=== PATIENT | male | born 1940 | race Caucasian/White ===

== ENCOUNTER 2016-11-03 18:51 | Emergency (ER) | payer MEDICARE, MEDICAID ==
[2016-11-03 20:18] VITALS: BP 145/65
--- NOTE | 2016-11-04 01:46 | ED ---
Skin Complaint - HPI Summary HPI Summary: Patient presents 2 days s/p cut onto toe of foot. He is a diabetic. Laceration is CDI and located at the plantar side of the base of the great left toe. 5/10 pain and worse with walking. .25cm depth. Denies aches, chills or sweats. Denies blood thinners. Denies neuropathy in the feet although he is diabetic. - History of Current Complaint Chief Complaint: EDExtremityLower Time Seen by Provider: 11/03/16 21:52 Stated Complaint: FOOT LAC-PT ON BLOOD THINNER Hx Obtained From: Patient Onset/Duration: Started Days Ago Skin Exposure Onset/Duration: Days Ago Timing: Constant Onset Severity: Moderate Current Severity: Moderate Pain Intensity: 2 Pain Scale Used: 0-10 Numeric Skin Location: Discrete, Foot Character: Pain Aggravating Symptom(s): Nothing Alleviating Symptom(s): Nothing Associated Signs & Symptoms: Negative Related History: Trauma - Allergy/Home Medications Allergies/Adverse Reactions: Allergies Allergy/AdvReac Type Severity Reaction Status Date / Time CI Pigment Blue 63 Allergy Mild Itching Verified 11/22/14 07:48 [From Simcor] Niacin [From Simcor] Allergy Mild Itching Verified 11/22/14 07:48 Simvastatin [From Simcor] Allergy Mild Itching Verified 11/22/14 07:48 PMH/Surg Hx/FS Hx/Imm Hx Previously Healthy: Yes Endocrine/Hematology History: Reports: Hx Diabetes Cardiovascular History: Reports: Hx Hypertension Denies: Hx Congestive Heart Failure Musculoskeletal History: Reports: Hx Arthritis Sensory History: Reports: Hx Cataracts, Hx Contacts or Glasses Denies: Hx Glaucoma, Hx Deafness, Hx Hearing Aid, Hx Hearing Problem Opthamlomology History: Reports: Hx Cataracts, Hx Contacts or Glasses Denies: Hx Glaucoma Neurological History: Denies: Hx Dementia, Hx Developmental Delay, Hx Headaches, Hx Migraine, Hx Nerve Disease, Hx Seizures, Hx Spinal Cord Injury - Surgical History Surgery Procedure, Year, and Place: 2003-Torn left knee meniscus repair Hx Anesthesia Reactions: No - Immunization History Hx Pertussis Vaccination: No Immunizations Up to Date: Unable to Obtain/Confirm Infectious Disease History: No Infectious Disease History: Denies: Traveled Outside the [place] in Last 30 Days - Social History Occupation: Unemployed Lives: With Family Alcohol Use: None Hx Substance Use: No Substance Use Type: Reports: None Hx Tobacco Use: Yes Smoking Status (MU): Light Every Day Tobacco Smoker Amount Used/How Often: 1/2 PPD X 60 YEARS Review of Systems Constitutional: Negative Eyes: Negative Cardiovascular: Negative Respiratory: Negative Positive: no symptoms reported, see HPI Musculoskeletal: Negative Positive: Other - 2cm laceration to the toe Neurological: Negative All Other Systems Reviewed And Are Negative: Yes Physical Exam Triage Information Reviewed: Yes Vital Signs On Initial Exam: Initial Vitals Temp Pulse Resp BP Pulse Ox 98.1 F 75 20 143/65 97 11/03/16 19:06 11/03/16 19:06 11/03/16 19:06 11/03/16 19:06 11/03/16 19:06 Vital Signs Reviewed: Yes Appearance: Positive: Well-Appearing, Well-Nourished Skin: Positive: Warm, Skin Color Reflects Adequate Perfusion, Other - 2cm laceration to the plantar surface at the base of the great toe Eyes: Positive: EOMI, ELLA Neck: Positive: Supple, No Lymphadenopathy Respiratory/Lung Sounds: Positive: Clear to Auscultation, Breath Sounds Present Cardiovascular: Positive: Normal, RRR, Pulses are Symmetrical in both Upper and Lower Extremities Musculoskeletal: Positive: Other - weakness at baseline Neurological: Positive: Normal, Sensory/Motor Intact Psychiatric: Positive: Normal AVPU Assessment: Alert Diagnostics - Vital Signs Vital Signs Temp Pulse Resp BP Pulse Ox 11/03/16 20:12 98.1 F 75 20 145/65 97 11/03/16 19:06 98.1 F 75 20 143/65 97 - Laboratory Lab Statement: Any lab studies that have been ordered have been reviewed, and results considered in the medical decision making process. Course/Dx - Course Course Of Treatment: 2cm laceration to the plantar surface at the base of the great toe x 2 days. Diabetic. Adhesive glue and steri strips applied. Gauze wrapped. Care instructions given and explained to daughter and patient. He agrees to follow up with PCP for wound check this week d/t diabetes. Explained treatment options to patient and unable to suture d/t length of time since laceration occurred. Tetanus UTD. - Differential Diagnoses - Skin Complaint Differential Diagnoses: Other - laceration, avulsion, puncture - Diagnoses Provider Diagnoses: Laceration of toe Discharge - Discharge Plan Condition: Stable Disposition: HOME Patient Education Materials: Steristrips (ED) Referrals: Angel Jiménez MD [Primary Care Provider] - Additional Instructions: Follow up with Dr. Jiménez by the end of the week or early next week for wound check. If you develop redness, streaks of red around the wound, swelling, abnormal drainage or you develop a fever - you need to come back to the ED right away.
== END 2016-11-03 22:14 | disposition home or self-care (01) ==
LOC: ED 18:51
DX: S91.119A Laceration without foreign body of unspecified toe without damage to nail, initial encounter (principal); W45.8XXA Other foreign body or object entering through skin, initial encounter; Y93.9 Activity, unspecified; Y92.9 Unspecified place or not applicable
CPT/HCPCS: 99281

== ENCOUNTER 2017-03-23 20:46 | Emergency (ER) | payer MEDICARE, MEDICAID ==
[2017-03-23] MEDS ORDERED: NS 0.9% 1000 ML* 1,000 ML IV ONE ×2 (21:24→22:54)
--- NOTE | 2017-03-23 21:56 | RAD ---
INDICATION: Dizziness COMPARISON: CT brain December 16, 2011 TECHNIQUE: Noncontrast axial source images were acquired from the skull base to the vertex. FINDINGS: Ventricles/sulci: The ventricles and cisterns appear unchanged with findings of mild ex vacuo hydrocephalus. There is a cavum septum pellucidum. Brain parenchyma: There is no acute focal parenchymal finding, evidence of intracranial mass, or intracranial mass effect. 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 There is chronic microvascular ischemic change in the periventricular and subcortical white matter. This appears mildly progressive. Intracranial hemorrhage:None. Extra-axial spaces: There are no abnormal extra axial fluid collections or evidence of extra-axial mass. Calvarium: There is no calvarial fracture or other calvarial abnormality. Scalp: There is no evidence of scalp or extracalvarial soft tissue abnormality. Paranasal sinuses/mastoid: The paranasal sinuses and mastoid air cells are clear. Other: None. IMPRESSION: OLD RIGHT FRONTAL INFARCT. CHRONIC MICROVASCULAR ISCHEMIC CHANGE. CORTICAL INVOLUTIONAL CHANGE. NO ACUTE FINDINGS.
--- NOTE | 2017-03-23 21:57 | RAD ---
INDICATION: Fall. Left hip pain COMPARISON: Chest x-ray March 05, 2015 TECHNIQUE: PA and lateral dual-energy views were obtained. FINDINGS: Bones/Soft Tissues: There are no acute bony findings. Cardiomediastinal: The cardiomediastinal silhouette is normal. Lungs: There are no infiltrates. Pleura: There are no pleural effusions. Other: None IMPRESSION: NO ACTIVE DISEASE.
--- NOTE | 2017-03-23 21:58 | RAD ---
INDICATION: Fell out bed and landed on left hip. Currently denies pain COMPARISON: None TECHNIQUE: A single AP view of the pelvis is submitted. FINDINGS: Osseous structures: There is no acute osseous change. There is degenerative change of the lower lumbar spine SI joints and symphysis: Intact Soft tissues: Negative Other: None IMPRESSION: NO ACUTE BONY FINDINGS.
[2017-03-23 22:27] LABS: Hematocrit 42 % (42-52); Hemoglobin 14.4 g/dl (14.0-18.0); Mean Corpuscular HGB Conc 34 g/dl (31-36); Mean Corpuscular Hemoglobin 32 pg (27-31); Mean Corpuscular Volume 94 fL (80-94); Mean Platelet Volume 8 um3 (7.4-10.4); Red Blood Count 4.49 10^6/ul (4.0-5.4); Red Cell Distribution Width 15 % (10.5-15); White Blood Count 13.1 10^3/ul (3.5-10.8)
[2017-03-23 22:44] LABS: Albumin 4.1 g/dL (3.2-5.2); BUN/Creatinine Ratio 19.3 (8-20); Calcium 9.7 mg/dL (8.6-10.3); EGFR African American 54.1 (>60); Globulin 2.8 g/dL (2-4); Magnesium 2.2 mg/dL (1.9-2.7); Potassium 4.3 mmol/L (3.5-5.0); Total Bilirubin 0.6 mg/dL (0.2-1.0); Total Protein 6.9 g/dL (6.4-8.9)
[2017-03-24 01:31] VITALS: BP 131/68
[2017-03-24 01:53] LABS: Urine Bacteria Absent (Absent); Urine Bilirubin Negative (Negative); Urine Glucose Negative (Negative); Urine Nitrite Negative (Negative)
--- NOTE | 2017-03-24 05:20 | ED ---
Kayley Delgado Gabriel, scribed for Toni Orozco on 03/23/17 at 2114 . Lower Extremity - HPI Summary HPI Summary: This patient is a 76 year old M BIBA to [facility] accompanied by son with a chief complaint of hip pain s/p fall since earlier today. Pt states he stood up and lost balance, falling and hitting his left hip. Patient reports weakness and diarrhea. Patient denies nausea, ABD pain, and LOC. - History of Current Complaint Chief Complaint: EDHipPelvisInjury Stated Complaint: GENERAL WEAKNESS Time Seen by Provider: 03/23/17 21:00 Hx Obtained From: Patient Mechanism Of Injury: Fall From A Standing Position Pain Intensity: 0 Pain Scale Used: 0-10 Numeric Timing: Constant - Allergies/Home Medications Allergies/Adverse Reactions: Allergies Allergy/AdvReac Type Severity Reaction Status Date / Time CI Pigment Blue 63 Allergy Mild Itching Verified 11/22/14 07:48 [From Simcor] Niacin [From Simcor] Allergy Mild Itching Verified 11/22/14 07:48 Simvastatin [From Simcor] Allergy Mild Itching Verified 11/22/14 07:48 PMH/Surg Hx/FS Hx/Imm Hx Previously Healthy: No Endocrine/Hematology History: Reports: Hx Diabetes Cardiovascular History: Reports: Hx Hypertension Denies: Hx Congestive Heart Failure Musculoskeletal History: Reports: Hx Arthritis Sensory History: Reports: Hx Cataracts, Hx Contacts or Glasses Denies: Hx Glaucoma, Hx Deafness, Hx Hearing Aid, Hx Hearing Problem Opthamlomology History: Reports: Hx Cataracts, Hx Contacts or Glasses Denies: Hx Glaucoma Neurological History: Denies: Hx Dementia, Hx Developmental Delay, Hx Headaches, Hx Migraine, Hx Nerve Disease, Hx Seizures, Hx Spinal Cord Injury - Surgical History Surgery Procedure, Year, and Place: 2003-Torn left knee meniscus repair Hx Anesthesia Reactions: No Infectious Disease History: No Infectious Disease History: Denies: Traveled Outside the [place] in Last 30 Days - Family History Known Family History: Negative: Cardiac Disease - Social History Lives: Alone Alcohol Use: None Hx Substance Use: No Substance Use Type: Reports: None Hx Tobacco Use: Yes Smoking Status (MU): Light Every Day Tobacco Smoker Amount Used/How Often: 1/2 PPD X 60 YEARS Review of Systems Positive: Diarrhea. Negative: Abdominal Pain, Nausea Neurological: Negative - LOC Positive: Weakness All Other Systems Reviewed And Are Negative: Yes Physical Exam - Summary Physical Exam Summary: Appearance: Well appearing, no pain distress Skin: warm, dry, reflects adequate perfusion abrasions on lateral aspect of knee Head/face: normal Eyes: EOMI, ELLA ENT: Dry mucous membrane Neck: supple, non-tender Respiratory: CTA, breath sounds present Cardiovascular: RRR, pulses symmetrical Abdomen: non-tender, soft Bowel: present Musculoskeletal: normal, strength/ROM intact Neuro: normal, sensory motor intact, A&Ox3 Triage Information Reviewed: Yes Vital Signs On Initial Exam: Initial Vitals Temp Pulse Resp BP Pulse Ox 99.6 F 96 18 137/63 98 03/23/17 21:04 03/23/17 21:04 03/23/17 21:04 03/23/17 21:04 03/23/17 21:04 Vital Signs Reviewed: Yes - Concepcion Coma Scale Coma Scale Total: 15 Diagnostics - Vital Signs Vital Signs Temp Pulse Resp BP Pulse Ox 03/23/17 21:04 99.6 F 96 18 137/63 98 - Laboratory Lab Results: Lab Results 03/23/17 03/23/17 03/23/17 Range/Units 22:15 22:15 22:15 WBC 13.1 H (3.5-10.8) 10^3/ul RBC 4.49 (4.0-5.4) 10^6/ul Hgb 14.4 (14.0-18.0) g/dl Hct 42 (42-52) % MCV 94 (80-94) fL MCH 32 H (27-31) pg MCHC 34 (31-36) g/dl RDW 15 (10.5-15) % Plt Count 217 (150-450) 10^3/ul MPV 8 (7.4-10.4) um3 Neut % (Auto) 90.8 H (38-83) % Lymph % (Auto) 5.2 L (25-47) % Bowman % (Auto) 3.5 (1-9) % Eos % (Auto) 0.4 (0-6) % Baso % (Auto) 0.1 (0-2) % Absolute Neuts (auto) 11.9 H (1.5-7.7) 10^3/ul Absolute Lymphs (auto) 0.7 L (1.0-4.8) 10^3/ul Absolute Monos (auto) 0.5 (0-0.8) 10^3/ul Absolute Eos (auto) 0.1 (0-0.6) 10^3/ul Absolute Basos (auto) 0 (0-0.2) 10^3/ul Absolute Nucleated RBC 0 10^3/ul Nucleated RBC % 0 INR (Anticoag Therapy) 1.10 (0.89-1.11) APTT 43.6 H (26.0-36.3) seconds Sodium 139 (133-145) mmol/L Potassium 4.3 (3.5-5.0) mmol/L Chloride 107 (101-111) mmol/L Carbon Dioxide 24 (22-32) mmol/L Anion Gap 8 (2-11) mmol/L BUN 31 H (6-24) mg/dL Creatinine 1.61 H (0.67-1.17) mg/dL Est GFR ( Amer) 54.1 (>60) Est GFR (Non-Af Amer) 42.0 (>60) BUN/Creatinine Ratio 19.3 (8-20) Glucose 144 H (70-100) mg/dL Calcium 9.7 (8.6-10.3) mg/dL Magnesium 2.2 (1.9-2.7) mg/dL Total Bilirubin 0.60 (0.2-1.0) mg/dL AST 30 (13-39) U/L ALT 20 (7-52) U/L Alkaline Phosphatase 30 L (34-104) U/L Total Creatine Kinase 48 (10-223) U/L Troponin I 0.00 (<0.04) ng/mL Total Protein 6.9 (6.4-8.9) g/dL Albumin 4.1 (3.2-5.2) g/dL Globulin 2.8 (2-4) g/dL Albumin/Globulin Ratio 1.5 (1-3) Urine Color Urine Appearance Urine pH (5-9) Ur Specific [place] (1.010-1.030) Urine Protein (Negative) Urine Ketones (Negative) Urine Blood (Negative) Urine Nitrate (Negative) Urine Bilirubin (Negative) Urine Urobilinogen (Negative) Ur Leukocyte Esterase (Negative) Urine WBC (Auto) (Absent) Urine RBC (Auto) (Absent) Ur Squamous Epith Cells (Absent) Urine Bacteria (Absent) Hyaline Casts (Absent) Urine Glucose (Negative) Influenza A (Rapid) (Negative) Influenza B (Rapid) (Negative) 03/24/17 03/24/17 Range/Units 01:00 01:27 WBC (3.5-10.8) 10^3/ul RBC (4.0-5.4) 10^6/ul Hgb (14.0-18.0) g/dl Hct (42-52) % MCV (80-94) fL MCH (27-31) pg MCHC (31-36) g/dl RDW (10.5-15) % Plt Count (150-450) 10^3/ul MPV (7.4-10.4) um3 Neut % (Auto) (38-83) % Lymph % (Auto) (25-47) % Bowman % (Auto) (1-9) % Eos % (Auto) (0-6) % Baso % (Auto) (0-2) % Absolute Neuts (auto) (1.5-7.7) 10^3/ul Absolute Lymphs (auto) (1.0-4.8) 10^3/ul Absolute Monos (auto) (0-0.8) 10^3/ul Absolute Eos (auto) (0-0.6) 10^3/ul Absolute Basos (auto) (0-0.2) 10^3/ul Absolute Nucleated RBC 10^3/ul Nucleated RBC % INR (Anticoag Therapy) (0.89-1.11) APTT (26.0-36.3) seconds Sodium (133-145) mmol/L Potassium (3.5-5.0) mmol/L Chloride (101-111) mmol/L Carbon Dioxide (22-32) mmol/L Anion Gap (2-11) mmol/L BUN (6-24) mg/dL Creatinine (0.67-1.17) mg/dL Est GFR ( Amer) (>60) Est GFR (Non-Af Amer) (>60) BUN/Creatinine Ratio (8-20) Glucose (70-100) mg/dL Calcium (8.6-10.3) mg/dL Magnesium (1.9-2.7) mg/dL Total Bilirubin (0.2-1.0) mg/dL AST (13-39) U/L ALT (7-52) U/L Alkaline Phosphatase (34-104) U/L Total Creatine Kinase (10-223) U/L Troponin I (<0.04) ng/mL Total Protein (6.4-8.9) g/dL Albumin (3.2-5.2) g/dL Globulin (2-4) g/dL Albumin/Globulin Ratio (1-3) Urine Color Yellow Urine Appearance Cloudy Urine pH 5.0 (5-9) Ur Specific [place] 1.026 (1.010-1.030) Urine Protein 1+(30 mg/dl) H (Negative) Urine Ketones Negative (Negative) Urine Blood Negative (Negative) Urine Nitrate Negative (Negative) Urine Bilirubin Negative (Negative) Urine Urobilinogen Negative (Negative) Ur Leukocyte Esterase Negative (Negative) Urine WBC (Auto) 2+(11-20/hpf) H (Absent) Urine RBC (Auto) 1+(3-5/hpf) H (Absent) Ur Squamous Epith Cells Present H (Absent) Urine Bacteria Absent (Absent) Hyaline Casts Present H (Absent) Urine Glucose Negative (Negative) Influenza A (Rapid) Negative (Negative) Influenza B (Rapid) Negative (Negative) Result Diagrams: 03/23/17 22:15 03/23/17 22:15 Lab Statement: Any lab studies that have been ordered have been reviewed, and results considered in the medical decision making process. - Radiology CXR Radiology Interpretation Completed By: Radiologist - NO ACTIVE DISEASE. ED physician has reviewed this radiology report and agrees. Pelvis Xray Radiology Interpretation Completed By: Radiologist - NO ACUTE BONY FINDINGS. ED physician has reviewed this radiology report and agrees. - CT Brain CT CT Interpretation Completed By: Radiologist - OLD RIGHT FRONTAL INFARCT. CHRONIC MICROVASCULAR ISCHEMIC CHANGE. CORTICAL INVOLUTIONAL CHANGE. NO ACUTE FINDINGS. ED physician has reviewed this radiology report and agrees. - EKG 21:33 Cardiac Rate: NL EKG Rhythm: Sinus Rhythm - 88 BPM EKG Interpretation: RBBB Lower Extremity Course/Dx - Course Assessment/Plan: This patient is a 76 year old M BIBA to [facility] accompanied by son with a chief complaint of hip pain s/p fall since earlier today. An EKG reveals NSR at 88 BPM with a RBBB. CXR reveals, per radiologist, NO ACTIVE DISEASE. Pelvis X-rayreveals, per radiologist, NO ACUTE BONY FINDINGS. Brain CT reveals, per radiologist, OLD RIGHT FRONTAL INFARCT. CHRONIC MICROVASCULAR ISCHEMIC CHANGE. CORTICAL. INVOLUTIONAL CHANGE. NO ACUTE FINDINGS. Blood and urine were drawn with no significant abnormalities. In the ED course the patient was given IV fluids. do not want to wait for results. Patient will be discharged with follow up from Dr. Jiménez (PCP). The patient is agreeable with this plan. - Diagnoses Differential Diagnosis/HQI/PQRI: Positive: Contusion, Fracture (Closed), Other - cva/dehydration/intracranial bleeding Provider Diagnoses: Dizziness, Weakness, Dehydration Discharge - Discharge Plan Condition: Stable Disposition: HOME Patient Education Materials: Dehydration (ED), Dizziness (ED) Referrals: Angel Jiménez MD [Primary Care Provider] - 3 Days Additional Instructions: RETURN TO THE EMERGENCY DEPARTMENT FOR CHANGING OR WORSENING SYMPTOMS. The documentation as recorded by the Kayley santos Gabriel accurately reflects the service I personally performed and the decisions made by , Toni Orozco.
== END 2017-03-24 01:30 | disposition home or self-care (01) ==
LOC: ED 20:46
DX: R42 Dizziness and giddiness (principal); R53.1 Weakness; E86.0 Dehydration; R19.7 Diarrhea, unspecified; F17.210 Nicotine dependence, cigarettes, uncomplicated
CPT/HCPCS: 36415; 70450; 71010; 72170; 80053; 81003; 81015; 82550; 83735; 84484; 85025; 85610; 85730; 87502; 93005; 99283

== ENCOUNTER 2017-12-07 17:04 | Observation (INO) | payer MEDICARE, MEDICAID ==
[2017-12-07] MEDS ORDERED: NS 0.9% 1000 ML*IV.FLUID IV ONE (17:18)
--- NOTE | 2017-12-07 17:23 | ED ---
Back Pain - HPI Summary HPI Summary: This is scribe Epifanio Wong documenting for attending Ene Hilario M.D. Patient is a 77 y/o M who presented first to Dr Stout's office today with c/o possible kidney infection, left flank pain and feeling weak onset five days ago. However, at Dr. Stout's office, it was noted that patient was in SVT, rate 130"s., BP 112/systolic. Pt was referred to the ED for further eval and RX. Vitals in room are pulse of 158, 98 o2 sat, BP of 85/55. , Feliz Ribeiro, was present. He denies chest pain, SOB, cough and fever. He states he is not on any antibiotics and has not been checked for a kidney infection previously. He denies dizziness. reports patient might be a little dehydrated. He states he has not eaten a lot today as he was not hungry. He reports no PSHx in the room. Patient takes Digoxin, 0.375 mg a day. He does not remember taking medication but notes he had an empty pill cup in bathroom and believes he took medication. At 1724, patient was hypotensive 71/53 P 166 and pt c/o feeling weak. SOB and chest pain are still denied by pt even when hypotensive. Reported home medications are as follows: Home Medications Digoxin TAB* [Lanoxin TAB*] 0.125 mg PO DAILY 12/07/17 [History Confirmed ] Fenofibrate(NF) [Tricor(NF)] 160 mg PO DAILY WITH MEAL 12/07/17 [History Confirmed 12/07/17] Losartan TAB* [Cozaar TAB*] 25 mg PO DAILY 12/07/17 [History Confirmed 12/07/17] Howard-3 Acid Ethyl Esters [Lovaza 1 gm] 2 cap PO BID 12/07/17 [History Confirmed 12/07/17] Reported allergies are as follows: Allergies Allergy/AdvReac Type Severity Reaction Status Date / Time blue dye Allergy Itching Verified 12/07/17 18:37 niacin Allergy Itching Verified 12/07/17 18:37 simvastatin Allergy Itching Verified 12/07/17 18:37 I, Dr. Hilario, personally performed the services described in this documentation as scribed in my presence and it is both accurate and complete. - History of Current Complaint Chief Complaint: EDDysrhythmPalp Stated Complaint: FAST HEART RATE Time Seen by Provider: 12/07/17 17:11 Hx Obtained From: Patient, Family/Representative Personal Service - , Other: - Dr. Stout Onset/Duration: Lasting Hours - SVT was first noted today during visit to Dr. Stout, Lasting Days - left flank pain and weakness onset 5 days ago, Still Present Onset/Duration: Started Hours Ago - SVT was first noticed, Started Days Ago - left flank pain, weakness Timing: Constant Back Pain Location: Is Discrete @ - left flank Severity Currently: None - on triage, 0/10 Pain Intensity: 0 Pain Scale Used: 0-10 Numeric - 0/10 on triage Character: Aching Aggravating Symptom(s): Nothing Alleviating Symptom(s): Nothing Associated Signs And Symptoms: Positive: Weakness, Flank Pain - left, Other - SVT - Allergies/Home Medications Allergies/Adverse Reactions: Allergies Allergy/AdvReac Type Severity Reaction Status Date / Time blue dye Allergy Itching Verified 12/07/17 18:37 niacin Allergy Itching Verified 12/07/17 18:37 simvastatin Allergy Itching Verified 12/07/17 18:37 Home Medications: Home Medications Digoxin TAB* [Lanoxin TAB*] 0.125 mg PO DAILY 12/07/17 [History Confirmed ] Fenofibrate(NF) [Tricor(NF)] 160 mg PO DAILY WITH MEAL 12/07/17 [History Confirmed 12/07/17] Losartan TAB* [Cozaar TAB*] 25 mg PO DAILY 12/07/17 [History Confirmed 12/07/17] Howard-3 Acid Ethyl Esters [Lovaza 1 gm] 2 cap PO BID 12/07/17 [History Confirmed 12/07/17] PMH/Surg Hx/FS Hx/Imm Hx Previously Healthy: No Endocrine/Hematology History: Reports: Hx Diabetes Cardiovascular History: Reports: Hx Hypertension Denies: Hx Congestive Heart Failure Musculoskeletal History: Reports: Hx Arthritis Sensory History: Reports: Hx Cataracts, Hx Contacts or Glasses Denies: Hx Glaucoma, Hx Deafness, Hx Hearing Aid, Hx Hearing Problem Opthamlomology History: Reports: Hx Cataracts, Hx Contacts or Glasses Denies: Hx Glaucoma Neurological History: Denies: Hx Dementia, Hx Developmental Delay, Hx Headaches, Hx Migraine, Hx Nerve Disease, Hx Seizures, Hx Spinal Cord Injury - Surgical History Surgery Procedure, Year, and Place: 2003-Torn left knee meniscus repair Hx Anesthesia Reactions: No Infectious Disease History: No Infectious Disease History: Denies: Traveled Outside the [place] in Last 30 Days - Family History Known Family History: Negative: Cardiac Disease - Social History Lives: With Family Alcohol Use: None Hx Substance Use: No Substance Use Type: Reports: None Hx Tobacco Use: Yes Smoking Status (MU): Light Every Day Tobacco Smoker Amount Used/How Often: 1/2 PPD X 60 YEARS Review of Systems Positive: Fatigue - weakness, Other - reports possible dehydration . Negative: Fever Positive: Other - SVT on EKG from Dr. Stout and in ED. Negative: Chest Pain Negative: Shortness Of Breath Gastrointestinal: Negative Positive: flank pain - left Skin: Negative Neurological: Other - NEGATIVE: dizziness Psychological: Normal All Other Systems Reviewed And Are Negative: Yes Physical Exam - Summary Physical Exam Summary: Appearance: Ill-appearing, mild pain distress due to left flank pain, well- nourished, hypotensive, SVT 160's Skin: Warm, color reflects adequate perfusion, dry, no rash Head: Normal Head/Face inspection, atraumatic Eyes: Conjunctiva clear ENT: Normal inspection Neck: Supple, no nodes, no JVD Respiratory: Lungs clear, normal breath sounds, no respiratory distress Cardio: tachycardic, No murmur, pulses normal, brisk capillary refill Abdomen: Soft, nontender Bowel sounds: Present Musculoskeletal: Strength Intact/ROM intact, no calf tenderness, no edema. No CVAT, no spinal tenderness Psychological: Normal Neuro: Alert, muscle tone normal, no focal deficit Triage Information Reviewed: Yes Vital Signs On Initial Exam: Initial Vitals Temp Pulse Resp BP Pulse Ox 98.8 F 166 20 71/53 99 12/07/17 17:05 12/07/17 17:05 12/07/17 17:05 12/07/17 17:05 12/07/17 17:05 Vital Signs Reviewed: Yes Diagnostics - Vital Signs Vital Signs Temp Pulse Resp BP Pulse Ox 12/07/17 17:05 98.8 F 166 20 71/53 99 - Laboratory Result Diagrams: 12/07/17 17:25 12/07/17 17:25 Lab Statement: Any lab studies that have been ordered have been reviewed, and results considered in the medical decision making process. - CT CXR CT Interpretation: No Acute Changes CT Interpretation Completed By: Radiologist - No active disease. This report was reviewed by ED physician. - EKG 1710 Cardiac Rate: Tachycardia - Rate of 153 BPM EKG Rhythm: SVT ST Segment: Non-Specific Ectopy: None EKG Interpretation: prolonged IVCT - RBBB, nl QTC, nl axis EKG Comparison: Other - current EKG was compared to 03/23/17; patient is now in SVT, RBBB is not new. Re-Evaluation - Re-Evaluation First Eval Re-Evaluation Time: 17:38 Comment: Patient converted spontaneously to sinus rhythm at 100 BPM, 130 systolic BP; Dr. Lora, who was in the room, recommeneded metoprolol 5 mg IV, admit obs, trend troponins. Third Eval Re-Evaluation Time: 18:45 Change: Improved Comment: Talked to pt and his about staying to be admitted. Pt agrees to stay. Remains in SR. Second Eval Re-Evaluation Time: 18:22 Comment: Troponin was .16 Back Pain Course/Dx - Course Course Of Treatment: 77 yo M with hx PAT, on digoxin, presents by private car from Dr. Stout's office after pt was noted to be in SVT, with BP 112 systolic. Pt had c/o left flank pain, weakness, poss UTI to Dr. Stout. Pt denied CP, SOB. Upon arrival to ED, HR 166, BP 71/53. Pt brought immediately to room, with Dr. Hilario at bedside. Continued to deny CP, SOB. +dizziness. Preparations initiated to cardiovert pt. Discussed with Dr. Lora by phone, who came to ED. As peripheral IV was placed, and as Dr. Lora walked into the room, pt converted spontaneously to sinus rhythm. BP 130's. Pt still with left flank pain, never had CP or SOB. Per Dr. Lora, pt to be admitted. Dr. Sandhu, hospitalist accepts pt. 1923 I was informed that pt wanted to leave AMA. I spoke with pt and his , explaining that his troponin was elevated, and that he risked if he left the hospital. Pt and agreed to stay for observation admission. Trop 0.16. first EKG SVT, second EKG NSR. CXR NAD. - Diagnoses Provider Diagnoses: SVT (supraventricular tachycardia), Hypotension, Left flank pain, Elevated troponin I level - Provider Notifications Discussed Care Of Patient With: Rogerio Loar Time Discussed With Above Provider: 18:33 Instructed by Provider To: Admit As Observation - Dr. Lora was consulted on patient's case, will come down to evaluate. 18:39 -- Dr. Lora enters room, patient converts spontaneously to SVT. He recommends metoprolol, 5 mg IV. 18:45 -- Dr. Dominguez accepts patient for admission to hospital. - Critical Care Time Critical Care Time: 30-74 min - 30 minutes, eval of SVT and hypotension, preparation to cardiovert Discharge - Sign-Out/Discharge Documenting (check all that apply): Patient Departure - admit - Discharge Plan Condition: Stable Disposition: ADMITTED TO [facility] - Billing Disposition and Condition Condition: STABLE Disposition: Admitted to [facility]
[2017-12-07] MEDS ORDERED: Metoprolol Tartrate IV* 1 MG/ML 5 ML VIAL IV ONE (17:40)
[2017-12-07 17:43] LABS: ABS Basophils 0.1 10^3/ul (0-0.2); ABS Eosinophils 0.1 10^3/ul (0-0.6); ABS Lymphocytes 1.7 10^3/ul (1.0-4.8); ABS Monocytes 0.5 10^3/ul (0-0.8); ABS Neutrophils 8.2 10^3/ul (1.5-7.7); ABS Nucleated RBC 0 10^3/ul; Eosinophil % 0.9 % (0-6); Hematocrit 44 % (42-52); Hemoglobin 14.9 g/dl (14.0-18.0); Lymphocyte % 16.3 % (25-47); Mean Corpuscular HGB Conc 34 g/dl (31-36); Mean Corpuscular Hemoglobin 32 pg (27-31); Mean Corpuscular Volume 95 fL (80-94); Nucleated Red Blood Cells % 0.3; Platelet Count 271 10^3/ul (150-450); Red Blood Count 4.63 10^6/ul (4.00-5.40); Red Cell Distribution Width 15 % (10.5-15); White Blood Count 10.6 10^3/ul (3.5-10.8)
[2017-12-07 17:51] LABS: INR 1.08 (0.77-1.02)
--- NOTE | 2017-12-07 18:21 | RAD ---
INDICATION: SVT COMPARISON: March 23, 2017 TECHNIQUE: An AP portable view obtained at 1801 hours is submitted. FINDINGS: Bones/Soft Tissues: There are no acute bony findings. Cardiomediastinal: The cardiomediastinal silhouette is normal. Lungs: There are no infiltrates. Pleura: There are no pleural effusions. Other: None IMPRESSION: NO ACTIVE DISEASE.
[2017-12-07 18:54] LABS: EGFR Non-African American 37.3 (>60)
[2017-12-07] MEDS ORDERED: Acetaminophen TAB* 325 MG PO PRN (19:11)
[2017-12-07] MEDS ORDERED: Digoxin IV* 0.5 MG/2 ML AMP (0.25 MG/ML) IV SLOW PU ONE (19:12)
[2017-12-07 19:43] LABS: Urine Appearance Cloudy; Urine Blood Negative (Negative); Urine Color Yellow; Urine Ketones Trace (Negative); Urine Protein Negative (Negative); Urine Specific Gravity 1.015 (1.010-1.030); Urine Urobilinogen Negative (Negative)
--- NOTE | 2017-12-07 21:26 | HP ---
HISTORY AND PHYSICAL: DATE OF ADMISSION: 12/07/2017. ATTENDING PHYSICIAN: Dr. Jennyfer Williamson* (dictated by Emiliana Hanson NP). ADDENDUM: The patient has agreed to stay in the hospital. The case was reviewed with Dr. Lora over the phone and note was made of the fact that the patient's digoxin level was 0.4. Plan to increase digoxin from 0.125 daily to 0.125 alternating with 0.25 every other day. He recommended that the patient will be following with Dr. Monge as outpatient at discharge. EMILIANA HANSON, DLYON [id number]/[facility] #: [id number] VEDA
--- NOTE | 2017-12-07 21:34 | CONS ---
CC: Dr. Stout* HOSPITAL MEDICINE CONSULTATION REPORT: DATE OF CONSULT: 12/07/17 PRIMARY CARE PHYSICIAN: Dr. Stout. ATTENDING PHYSICIAN: Dr. Kinza Sandhu (dictation provided by Emiliana Hanson NP). REASON FOR CONSULT: Question regarding need for admission. HISTORY OF PRESENT ILLNESS: Mr. Shoemaker is a 77-year-old male with a past medical history of SVT with previous syncopal episode in 2013, hypertension, and right bundle-branch block, who presents to the hospital today from his doctor's office after being found to be in asymptomatic SVT. Mr. Shoemaker states that he recently has had some issue with back pain on the left side for about the last 2 weeks. He went to his doctor's office today out of concern perhaps that he had a kidney infection. His daughter at the bedside reports that it seems like he is having more urgency with urination, but he himself denies dysuria or frequency. This urgency seems to have come on in the past 24 hours or so. The patient was evaluated at Dr. Stout's office for this issue. While there, he had an EKG, which showed that he was in SVT and he was transferred to the emergency room. Despite being in SVT, the patient denied any feeling of palpitations of lightheadedness. The patient states he has had no back pain since arrival here. He denies any fevers. He further denies any chest pain, shortness of breath, cough, nausea, vomiting, or diarrhea. In the emergency room, Mr. Shoemaker was initially in SVT, but was a few minutes after arrival when efforts were being made to place an IV, he did convert spontaneously. The patient states he is feeling quite well now. He has no complaints whatsoever. He is adamant that he does not want to remain in the hospital for observation. PAST MEDICAL HISTORY: 1. History of SVT. 2. Hypertension. 3. Right bundle-branch block. 4. Hyperlipidemia. MEDICATIONS: Outpatient are: 1. Dabigatran 150 mg p.o. b.i.d. 2. Digoxin 0.125 mg p.o. daily. 3. Fenofibrate 160 mg p.o. daily with food. 4. Losartan 25 mg p.o. daily. 5. [place] 3 fatty acid 2 caps p.o. b.i.d. ALLERGIES: BLUE DYE, NIACIN, and SIMVASTATIN. FAMILY HISTORY: The patient reports his mother and father had of old age. SOCIAL HISTORY: The patient is a continuous smoker, smoking about a half a pack a day. He denies any alcohol or drug use. He states that his children would be his health care proxy. REVIEW OF SYSTEMS: A 14-point review of systems was completed with Mr. Shoemaker and all those not mentioned above were negative. PHYSICAL EXAM: Vital Signs: Temperature 98.8, pulse rate was 166 and is 86 on my examination, respiratory rate 20, O2 saturation 99% on room air, blood pressure was initially 171/53, but is now in the 120s. General: Mr. Shoemaker is sitting up in the bed. He is in no acute distress. His daughter, Roxann, is at the bedside. Neuro: He is alert. He is oriented x3. He moves all extremities equally. There is no facial asymmetry or focal weakness. Extraocular movements are intact. Heart: S1, S2. No murmur, rub, or gallop and regular. Lungs are clear to auscultation bilaterally with no accessory muscle use and good aeration. The abdomen is soft and nontender with bowel sounds positive x4. Extremities: No cyanosis or edema. Skin is intact. DIAGNOSTIC STUDIES/LAB DATA: WBC 10.6, hemoglobin 14.9, hematocrit 44, platelet count 271. INR 1.08, PTT 50.6. D-dimer 212. Sodium 140, potassium 4.1, chloride 108, troponin is 0.16. BNP is 156. Procalcitonin is less than 0.1. TSH is 4.43, T4 is 10.12. Toxicology shows a low digoxin level of 0.4. Chest x-ray shows no acute intrathoracic process. ASSESSMENT AND PLAN: Mr. Shoemaker is a 77-year-old with a past medical history of supraventricular tachycardia with syncopal episode, who presented to the hospital today from his doctor's office with supraventricular tachycardia, for which he is reporting that he was asymptomatic. However, in the emergency room , his heart rate was 160 and his blood pressure was in the 70s. He did convert spontaneously when an attempt was made to place an IV. He is completely asymptomatic now. He had gone to his doctor's office originally for lower back pain, which he states has resolved. He is adamant that he does not want to remain in the hospital overnight. I have counseled him that he could have return of supraventricular tachycardia, which could lead to syncope or other untoward event. I also counseled him that he should provide a urine sample, so we can test for urinary tract infection. The patient is willing to provide a urine sample and is willing to stay for a second troponin as the first one was elevated, but he is adamant at this point that he will be leaving AMA. I have reviewed this with his daughter at the bedside. He is oriented and competent to make decisions for himself and will be leaving this evening after second troponin. If the second troponin is elevated, I will again speak with him regarding the importance of staying in the hospital overnight, and if he will allow it, we will place him on observation. TIME SPENT: Approximately 60 minutes were spent in the consultation of this patient with more than half the time was spent with the patient at the bedside reviewing the events leading up to this consultation, performing the physical examination, and reviewing my plan of care. EMILIANA HANSON, DYLON [id number]/[facility] #: [id number] VEDA
[2017-12-07] MEDS: CMC: Dabigatran CAP(NF) 150 MG CAP PO SCH (21:57)
[2017-12-08 06:22] LABS: EGFR Non-African American 48.9 (>60)
[2017-12-08] MEDS ORDERED: Losartan TAB* 25 MG PO SCH (09:00)
[2017-12-08] MEDS ORDERED: Digoxin TAB* 0.25 MG PO ONE (09:00)
[2017-12-08] MEDS: CMC: Dabigatran CAP(NF) 150 MG CAP PO SCH (09:04)
--- NOTE | 2017-12-08 15:32 | ECHO ---
Patient: ADAM ROCKWELL [facility] Rec#: [id number] : 1940 Date: 12/08/2017 Age: 77y Height: 185 cm / 72.8 in Weight: 63.5 kg / 140.0 lbs Sex: M BSA: 1.85 Room#: [facility] Admit Date#: 12/07/2017 Type: Inpatient Referring: Emiliana Hanson NP Reading: Rogerio Lora MD Bedspread Seamer: Amanda Maciel RDCS CC: Tiburcio Stout MD Transthoracic Echocardiogram Indication: Abnormal EKG, SVT BP: 112/58 HR: 56 Rhythm: Bradycardia Findings History: SVT, HTN, RBBB, HLD. Technical Comments: The study is technically limited due to poor parasternal windows. Completed at 1145. Left Ventricle: The left ventricular chamber size is normal. There is no left ventricular hypertrophy. Left ventricular systolic function is at the lower limits of normal. The estimated ejection fraction is 50-55%. Abnormal left ventricular diastolic function is observed. Left Atrium: The left atrial chamber size is normal. Right Ventricle: Moderator Band present. The right ventricular cavity size is normal. The right ventricular global systolic function is low normal. Right Atrium: The right atrium is mildly dilated. Aortic Valve: The aortic valve is trileaflet. There is no evidence of aortic valve thickening. There is no evidence of aortic regurgitation. There is no evidence of aortic stenosis. Mitral Valve: The mitral valve leaflets are mildly thickened. There is a trace of mitral regurgitation. There is no evidence of mitral stenosis. Tricuspid Valve: The tricuspid valve leaflets are normal. There is trace tricuspid regurgitation. The right ventricular systolic pressure is estimated at 24 mmHg. No pulmonary hypertension is noted. There is no tricuspid stenosis. Pulmonic Valve: The pulmonic valve structure is not well visualized. There is no pulmonic stenosis. Pericardium: There is no significant pericardial effusion. Aorta: There is mild dilatation of the ascending aorta. There is no dilatation of the aortic arch. There is mild dilatation of the aortic root. Pulmonary Artery: The main pulmonary artery is not well visualized. Venous: The inferior vena cava appears normal in size. There is a greater than 50% respiratory change in the inferior vena cava dimension. Summary: There are no significant changes when compared to the previous study done on 02/21/13 Conclusions Left ventricular systolic function is at the lower limits of normal. The estimated ejection fraction is 50-55%. Abnormal left ventricular diastolic function is observed. The right ventricular global systolic function is low normal. There is no evidence of aortic stenosis. There is a trace of mitral regurgitation. There is trace tricuspid regurgitation. No pulmonary hypertension is noted. There is no significant pericardial effusion. There are no significant changes when compared to the previous study done on 02/21/13 Measurements Name Value Normal Range RVIDd (AP) 2D 3.2 cm (0.9 - 2.6) RVDdMajor (2D) 4.2 cm (2.2 - 4.4) RAd ISD 4CH 5.2 cm (3.4 - 4.9) RA (A4C)W 4.2 cm (2.9 - 4.6) IVSd (2D) 0.8 cm (0.6 - 1) LVPWd (2D) 0.9 cm (0.6 - 1) LVIDd (2D) 4.7 cm (3.6 - 5.4) LVIDs (2D) 2.2 cm - LV FS (2D) 53 % (25 - 45) Aortic Annulus 2.1 cm (1.4 - 2.6) Ao root diameter (2D) 3.9 cm (2.1 - 3.5) Ascending Ao 4 cm (2.1 - 3.4) Aortic arch 3.1 cm (1.8 - 3.4) LA dimension (AP) 2D 3.6 cm (2.3 - 3.8) LAd ISD 4CH 4.9 cm (2.9 - 5.3) LA ISD 4CH W 4.5 cm (2.5 - 4.5) Name Value Normal Range LA ESV BP (A/L) index 30 ml/m2 - Name Value Normal Range MV E-wave Vmax 0.5 m/sec - MV deceleration time 317 msec - MV A-wave Vmax 0.6 m/sec - MV E:A ratio 0.8 ratio - LV septal e' Vmax 0.08 m/sec - LV lateral e' Vmax 0.07 m/sec - LV E:e' septal ratio 6.25 ratio - LV E:e' lateral ratio 7.14 ratio - Name Value Normal Range AV Vmax 1.2 m/sec - AV VTI 29.1 cm - AV peak gradient 6 mmHg - AV mean gradient 4 mmHg - LVOT Vmax 1 m/sec - LVOT VTI 24.2 cm - LVOT peak gradient 4 mmHg - LVOT mean gradient 3 mmHg - TAYLER Vmax 0.9 m/sec - Name Value Normal Range TR Vmax 2.3 m/sec - TR peak gradient 21 mmHg - RAP 3 mmHg - RVSP 24 mmHg - IVC diameter 2 cm - Name Value Normal Range PV Vmax 0.8 m/sec - PV peak gradient 2 mmHg -
[2017-12-08 16:19] VITALS: BP 136/64
--- NOTE | 2017-12-09 01:27 | DS ---
CC: Dr. Stout; Dr. Monge. DISCHARGE SUMMARY: DATE OF ADMISSION: 12/07/17. DATE OF DISCHARGE: 12/08/17. PRIMARY CARE PROVIDER: Dr. Stout. LAST REPAIRER HELPER: Dr. Monge. DISCHARGE DIAGNOSIS: Episodes of supraventricular tachycardia. SECONDARY DIAGNOSES: 1. History of supraventricular tachycardia. 2. Hypertension. 3. Hyperlipidemia. 4. Right bundle-branch block. 5. Tobacco abuse. 6. Troponin elevation, likely secondary to supraventricular tachycardia. MEDICATION LISTS: 1. Pradaxa 150 mg p.o. b.i.d. 2. Lovaza 2 capsules p.o. b.i.d. 3. TriCor 160 mg p.o. daily every meal. 4. Losartan 25 mg p.o. daily. Medication change: Digoxin was increased to 0.125 mg p.o. every other day alternating with 0.25 mg. HOSPITAL COURSE: Mr. Shoemaker is a 77-year-old male with a past medical history as stated above that pre sented to his primary care provider with complaints of left- sided back pain and was found to be in a symptomatic SVT with a heart rate of 160s. For more details about his presentation, I refer you to hi s history and physical. He was sent to the emergency room for further evaluation and initially he refused his admission, but later on agreed to stay for management. His digoxin level was checked and he was at low at 0.4, so after discussion with Cardiology, his dose was increased to 0.125 mg p.o. every other day alternating with 0.25 mg. The patient's initial troponin was 0.16 and it peaked at 0.95. As described above, the patient has n o complaints of chest pain. His echocardiogram showed an ejection fraction of 50% to 55% with no rep ort of wall motion abnormalities. The right ventricular global systolic function is low normal. The re is no evidence of aortic stenosis, only trace MR, trace TR, no pulmonary hypertension with no sign ificant changes when compared to his prior study from January 2013. The case was discussed with Cardiology (Dr. Lora) and he felt that his troponin elevation was second giacomo to his SVT, but the patient would benefit of a stress test as outpatient when he goes to see Dr. Monge. The patient is asymptomatic, anxious for discharge, and he is now stable to go home at this time. PHYSICAL EXAMINATION: Vital Signs: Temperature 97.6, heart rate is 75, respiratory rate 16, oxygen saturation 100% on room air, blood pressure is 136/64. General: The patient is a pleasant elderly ge ntleman, sitting up in the chair, in no acute distress. CVS: Normal S1 and S2. Regular rate and rh ythm. Chest: Breath sounds present bilaterally with no added sounds. Neuro: He is alert, awake, an d oriented x3. Able to move all 4 extremities. DIET: Heart healthy diet. ACTIVITY: As tolerated. DISPOSITION: To home. STATUS WHILE IN THE HOSPITAL: Observation. Please keep in mind that this is a summarized version of this patient's hospital stay. If you need m ore information, please feel free to call me at [phone] or please obtain the full medical record s. TIME SPENT: Approximately 45 minutes were spent to complete this discharge. [id number]/[facility] #: [id number]
== END 2017-12-08 16:42 | disposition home or self-care (01) ==
LOC: ED 17:04 → MEDTELE 19:06
PROVIDERS: ADMIT Internal Medicine; ATTEND Internal Medicine
DX: I47.1 Supraventricular tachycardia (principal); I10 Essential (primary) hypertension; E78.5 Hyperlipidemia, unspecified; I45.10 Unspecified right bundle-branch block; F17.210 Nicotine dependence, cigarettes, uncomplicated; R79.89 Other specified abnormal findings of blood chemistry
CPT/HCPCS: 36415; 71045; 80048; 80053; 80162; 81003; 82550; 82553; 83605; 83735; 83880; 84145; 84436; 84443; 84484; 85025; 85379; 85610; 85730; 87040; 93005; 93306; 99284; A9270-GY; G0378; J1160; J3490

== ENCOUNTER 2017-12-09 07:51 | Emergency (ER) | payer MEDICARE, MEDICAID ==
[2017-12-09] MEDS ORDERED: Ondansetron INJ* 2 MG/ML VIAL IV ONE (08:12)
[2017-12-09] MEDS ORDERED: NS 0.9% 1000 ML* 1,000 ML IV ONE (08:19)
[2017-12-09] MEDS ORDERED: oxyCODONE/Acetamin 5/325 MG* TAB PO ONE (08:19)
--- NOTE | 2017-12-09 08:24 | ED ---
Abdominal Pain/Male - HPI Summary HPI Summary: This is scribe Epifanio Wong documenting for attending Keo Cameron M.D. Patient is a 77 y/o M BIBA w/ c/o abdominal pain, back pain nausea, generalized tiredness. In the room, patient is retching but denies vomiting. While pain is denied on triage, in the room he states his "stomach is bothering" him. Abdominal pain is reported to onset this morning. He denies fever, chills, chest pain, diarrhea, SOB, dizziness and light-headedness. He states he is " weak and tired". Patient reports being [place] [facility] [place] but cannot recall what his Dx was upon discharge. He is unsure if he ate today, reports not drinking alcohol. Patient states he has had fluids today. He denies urinating today and reports last urination as yesterday. However, dysuria, abnormal urination, and hematuria are denied in room. Patient also reports back pain which onset yesterday. He states back pain is not aggravated by movement. On triage, nothing is noted to aggravate/alleviate Sx. He states he used to take pain medication for back pain. Home medications and allergies are reviewed. In room, vitals are pulse 68, O2 sat 98, and BP 127/56. During PE, pulse increased to 123. Hx of abdominal surgery, hernias are denied. I, Dr. Cameron, personally performed the services described in this documentation as scribed in my presence and it is both accurate and complete. - History of Current Complaint Chief Complaint: EDWeakness Stated Complaint: ABD/BACK PAIN Time Seen by Provider: 12/09/17 08:07 Hx Obtained From: Patient Onset/Duration: Lasting Hours - abdominal pain onset this morning, Lasting Days - back pain onset yesterday, Still Present - back pain, abdominal pain, nausea, feeling "weak and tired" Timing: Constant, Lasting Hours - abdominal pain onset this morning, Lasting Days - back pain onset yesterday Severity Currently: None - on triage, pain is denied. Pain Intensity: 0 Pain Scale Used: 0-10 Numeric - 0/10 on triage Aggravating Factor(s): Nothing Alleviating Factor(s): Nothing Associated Signs And Symptoms: Positive: Back Pain, Nausea, Other - abdominal pain, "weak and tired". Negative: Fever, Chest Pain, Dizzy, Blood in Stool, Urinary Symptoms, Vomiting, Diarrhea - Allergies/Home Medications Allergies/Adverse Reactions: Allergies Allergy/AdvReac Type Severity Reaction Status Date / Time blue dye Allergy Itching Verified 12/07/17 18:37 niacin Allergy Itching Verified 12/07/17 18:37 simvastatin Allergy Itching Verified 12/07/17 18:37 Home Medications: Home Medications Digoxin TAB* [Lanoxin TAB*] 0.125 mg PO EVERY OTHER DAY 12/09/17 [History Confirmed 12/09/17] Digoxin TAB* [Lanoxin TAB*] 0.25 mg PO EVERY OTHER DAY 12/09/17 [History Confirmed 12/09/17] PMH/Surg Hx/FS Hx/Imm Hx Endocrine/Hematology History: Reports: Hx Diabetes Cardiovascular History: Reports: Hx Hypertension Denies: Hx Congestive Heart Failure Musculoskeletal History: Reports: Hx Arthritis Sensory History: Reports: Hx Cataracts, Hx Contacts or Glasses Denies: Hx Glaucoma, Hx Deafness, Hx Hearing Aid, Hx Hearing Problem Opthamlomology History: Reports: Hx Cataracts, Hx Contacts or Glasses Denies: Hx Glaucoma Neurological History: Denies: Hx Dementia, Hx Developmental Delay, Hx Headaches, Hx Migraine, Hx Nerve Disease, Hx Seizures, Hx Spinal Cord Injury - Surgical History Surgery Procedure, Year, and Place: 2004-Torn left knee meniscus repair Hx Anesthesia Reactions: No Infectious Disease History: Yes Infectious Disease History: Denies: Traveled Outside the [place] in Last 30 Days - Family History Known Family History: Negative: Cardiac Disease - Social History Alcohol Use: None Hx Substance Use: No Substance Use Type: Reports: None Hx Tobacco Use: Yes Smoking Status (MU): Light Every Day Tobacco Smoker Type: Cigarettes Amount Used/How Often: 1/2 PPD X 60 YEARS Review of Systems Positive: Fatigue - "weak and tired" . Negative: Fever Negative: Erythema Negative: Sore Throat Negative: Chest Pain Negative: Shortness Of Breath, Cough Positive: Abdominal Pain, Nausea. Negative: Vomiting, Diarrhea Positive: other - reports he has not urinated since yesterday but denies urinary problems . Negative: dysuria, hematuria Positive: Other - POSITIVE: back pain. Negative: Myalgia, Edema Negative: Rash Neurological: Other - NEGATIVE: dizziness, light-headedness All Other Systems Reviewed And Are Negative: Yes Physical Exam - Summary Physical Exam Summary: During PE, heart rate accelerated from 60s to 120s during exam. Constitutional: Well-developed, Well-nourished, Alert, Active, Social smile present. (-) Distressed, (+) Diaphoretic (+) Retching HENT: Anterior fontanelle flat, Right TM normal and Left TM normal, Normal nose , Mucous membranes dry, Dentition normal, Oropharynx clear. (-) Cranial deformity Eyes: Conjunctiva normal, EOM intact, PERRL. (-) Left and right eye discharge Neck: ROM normal, Neck supple. (-) Cervical adenopathy Cardio: Rhythm regular, rate normal, Heart sounds normal, S1 normal, S2 normal, Intact distal pulses, Pulses strong. (-) Murmur Pulmonary/Chest wall: Effort normal, Breath sounds normal. (-) Retraction, (-) Respiratory distress, (-) Wheezes, (-) Rales, (-) Rhonchi, (-) Stridor, (-) Nasal flaring Abd: Soft. (-) Distension, (+) RUQ Tenderness, (-) Guarding, (-) Rebound, (-) Hepatosplenomegaly, (-) Mass Musculoskeletal: Normal ROM. (-) Edema Lymph: (-) Cervical adenopathy Neuro: Alert Skin: Warm, Dry. (-) Rash, (-) Purpura, (-) Diaphoresis, (-) Petechiae, (-) Cyanosis Triage Information Reviewed: Yes Vital Signs On Initial Exam: Initial Vitals Temp Pulse Resp BP Pulse Ox 97.5 F 43 18 127/56 98 12/09/17 07:53 12/09/17 07:53 12/09/17 07:53 12/09/17 07:53 12/09/17 07:53 Vital Signs Reviewed: Yes Diagnostics - Vital Signs Vital Signs Temp Pulse Resp BP Pulse Ox 12/09/17 07:53 97.5 F 43 18 127/56 98 - Laboratory Result Diagrams: 12/09/17 08:21 12/09/17 08:21 Lab Statement: Any lab studies that have been ordered have been reviewed, and results considered in the medical decision making process. - Radiology CXR Xray Interpretation: No Acute Changes Radiology Interpretation Completed By: Radiologist - No evidence for acute findings. This report was reviewed by ED physician. - CT CT abd/pel CT Interpretation: No Acute Changes CT Interpretation Completed By: Radiologist - No acute CT findings. No mass or inflammatory changes. Suspect chronic changes sigmoid colon with moderate diverticula but no CT findings of acute diverticulitis. This report was reviewed by ED physician. - Ultrasound No standard instances Ultrasound Interpretation Completed By: Radiologist - Gallbladder US Impression : Technically limited study. Gallbladder wall polyps measuring up to 0.3 CM. This report was reviewed by ED physician. - EKG 0805 Cardiac Rate: Bradycardia - rate of 43 BPM. EKG Rhythm: Sinus Bradycardia EKG Interpretation: RBBB, no STEMI 0835 Cardiac Rate: Tachycardia - Rate of 123 BPM. EKG Rhythm: Sinus Tachycardia EKG Interpretation: RBBB, Inferior ST depression/ischemia 1120 Cardiac Rate: Bradycardia - Rate of 56 BPM EKG Rhythm: Sinus Bradycardia EKG Interpretation: normal EKG, no STEMI Re-Evaluation - Re-Evaluation Second Eval Re-Evaluation Time: 12:19 Comment: Patient's condition is improved. Dr. Cameron requests PO trial for patient. First Eval Re-Evaluation Time: 09:32 Change: Improved Comment: Patient states he cannot urinate. Bladder scan showed 787 ml retained; doe ordered, 18Fr coude inserted. 100 clear yellow urine drained, patient reports immediate relief. Third Eval Re-Evaluation Time: 12:35 Change: Improved Comment: Patient's troponin is trending downward and third EKG showed ischemic changes have resolved. Patient will be discharged to home and follow up with Dr. Wyatt. He is agreeable with this plan. Abdominal Pain Fem Course/Dx - Course Assessment/Plan: Patient is a 77 y/o M BIBA w/ c/o abdominal pain, back pain nausea, generalized tiredness. In the room, patient is retching but denies vomiting. In the room he states his "stomach is bothering" him. Abdominal pain is reported to onset this morning. He denies fever, chills, chest pain, diarrhea , SOB, dizziness and light-headedness. He states he is "weak and tired". Patient reports being [place] [facility] [place] but cannot recall what his Dx was upon discharge. He is unsure if he ate today, reports not drinking alcohol. Patient states he has had fluids today. He denies urinating today and reports last urination as yesterday. However, dysuria, abnormal urination, and hematuria are denied in room. Patient also reports back pain which onset yesterday. He states he used to take pain medication for back pain. In room, vitals are pulse 68, O2 sat 98, and BP 127/56. During PE, pulse increased to 123. On physical exam, patient is noted to be retching in the room, has dry mucous membranes, and RUQ tenderness. During ED course, patient was given fluids , oxycodone 1 tab PO ED ONCE ONE, Zofran 4 mg IV ED ONCE ONE, and aspirin 324 mg PO ED ONCE ONE. At 0932, patient states he cannot urinate. Bladder scan showed 787 ml retained; doe ordered, 18Fr coude inserted. 100 clear yellow urine drained, patient reports immediate relief. Gallbladder US was technically limited study. Gallbladder wall polyps measuring up to 0.3 CM. CXR was normal, CT abd/pel was as follows: No acute CT findings. No mass or inflammatory changes. Suspect chronic changes sigmoid colon with moderate diverticula but no CT findings of acute diverticulitis. This report was reviewed by ED physician. Three EKGs were taken, with impressions noted above. The second EKG raisted concerns of possible ischemic changes. First trop was .32, second was .31. UA showed urine blood 3+, urine WBC 1+(6-10/hpf), urine RBC was 3+(>10/hpf). Labs showed carbon dioxide 21, creatinine 1.26, glucose 142, AST 44, total protein 6.1. Patient was noted to have Hbg 13.4, Hct 39, MCV 95, MCH 32. At 1235, patient was re-evaluated; troponin is trending downward, third EKG showed ischemic changes have resolved. Patient will be discharged to home with diagnosis of urinary retention and protitis enlargement. He will follow up with Dr. Wyatt in 2-3 days. Patient is agreeable with plan. - Diagnoses Provider Diagnoses: Acute urinary retention, Prostatic enlargement Discharge - Sign-Out/Discharge Documenting (check all that apply): Patient Departure - discharge - Discharge Plan Condition: Stable Disposition: HOME Patient Education Materials: Doe Catheter Placement and Care (ED) Referrals: Kevin Wyatt MD [Medical Doctor] - 2 Days Additional Instructions: Follow up with Dr. Wyatt in 2-3 days. Return to ED for any changing or worsening symptoms.
[2017-12-09 08:29] LABS: ABS Basophils 0.1 10^3/ul (0-0.2); ABS Eosinophils 0.1 10^3/ul (0-0.6); ABS Lymphocytes 2.6 10^3/ul (1.0-4.8); ABS Monocytes 0.6 10^3/ul (0-0.8); ABS Neutrophils 6.3 10^3/ul (1.5-7.7); ABS Nucleated RBC 0 10^3/ul; Eosinophil % 1.2 % (0-6); Hematocrit 39 % (42-52); Hemoglobin 13.4 g/dl (14.0-18.0); Lymphocyte % 26.8 % (25-47); Mean Corpuscular HGB Conc 34 g/dl (31-36); Mean Corpuscular Hemoglobin 32 pg (27-31); Mean Corpuscular Volume 95 fL (80-94); Mean Platelet Volume 7.8 um3 (7.4-10.4); Nucleated Red Blood Cells % 0.1; Platelet Count 217 10^3/ul (150-450); Red Blood Count 4.13 10^6/ul (4.00-5.40); Red Cell Distribution Width 14 % (10.5-15); White Blood Count 9.6 10^3/ul (3.5-10.8)
[2017-12-09] MEDS ORDERED: Aspirin 81 mg CHEW TAB* 81 MG TAB.CHEW PO ONE (08:31)
[2017-12-09 08:56] LABS: EGFR Non-African American 55.6 (>60)
--- NOTE | 2017-12-09 09:48 | RAD ---
INDICATION: Chest pain. COMPARISON: Comparison is made with a prior study from December 07, 2017. Correlation is also made with a study from March 23, 2017. TECHNIQUE: A portable view of the chest was obtained. FINDINGS: Cardiac and mediastinal contours appear to be within normal limits. There is elevation of the right hemidiaphragm which is unchanged from the prior studies. The lungs are underinflated and clear. No pleural effusion is seen. IMPRESSION: NO EVIDENCE FOR ACUTE FINDING.
[2017-12-09 09:50] LABS: Urine Appearance Clear; Urine Blood 3+ (Negative); Urine Color Yellow; Urine Ketones Negative (Negative); Urine Protein Negative (Negative); Urine Red Blood Cell 3+(>10/hpf) (Absent); Urine Specific Gravity 1.013 (1.010-1.030); Urine Urobilinogen Negative (Negative); Urine White Blood Cell 1+(6-10/hpf) (Absent)
--- NOTE | 2017-12-09 09:53 | RAD ---
HISTORY: RUQ PAIN COMPARISONS: None TECHNIQUE: Multiple transverse and longitudinal ultrasound images were obtained of the right upper quadrant of the abdomen using grayscale and color Doppler imaging. FINDINGS: This study is technically limited secondary to patient being unable to cooperate with the examination. LIVER: The liver is normal in shape, size, contour, and echogenicity. There are no focal parenchymal masses. There is normal hepatopedal flow of the portal vein on Doppler imaging. BILIARY TREE: There is no intrahepatic biliary dilatation. The common duct is not well visualized. GALLBLADDER: Gallbladder wall polyps are noted measuring up to 0.3 cm. PANCREAS: The pancreas is obscured by overlying bowel gas. RIGHT KIDNEY: The right kidney is normal in shape, size, contour, and echogenicity. There is no hydronephrosis or nephrolithiasis. The right kidney measures 11.1 x 5.9 x 5 cm. AORTA AND IVC: The aorta and IVC are unremarkable. FLUID: There are no pleural effusions. There is no free fluid within the hepatorenal recess. OTHER FINDINGS: None. IMPRESSION: TECHNICALLY LIMITED STUDY. GALLBLADDER WALL POLYPS MEASURING UP TO 0.3 CM.
[2017-12-09] MEDS ORDERED: Iodixanol* (CONTRAST) 320 MG/ML 100 ML SDV IV ONE (10:11)
--- NOTE | 2017-12-09 11:26 | RAD ---
INDICATION: Abdominal pain. Back pain COMPARISON: Gallbladder sonogram same date TECHNIQUE: Axial source images were obtained from the hemidiaphragms to the symphysis pubis following administration of oral and intravenous contrast. 100 mL Visipaque 320 was utilized. Coronal and sagittal reconstructed images were acquired. Lung bases: There are emphysematous changes in lung bases. Liver: The liver is normal in size. There are no masses. There is no ductal dilatation. Gallbladder: There are no calcified gallstones. There is no evidence of wall thickening or pericholecystic fluid. Spleen: The spleen is normal in size. There are no masses. Pancreas: There is no focal pancreatic mass or ductal dilatation. Adrenal glands: There is no evidence of adrenal mass. Kidneys: The kidneys are normal in size and position. There are prompt nephrograms and there is prompt excretion bilaterally. There are no renal parenchymal masses. There is no evidence of nephrolithiasis. Adenopathy: There is no evidence of adenopathy by size criteria. Fluid collections: There are no free or localized fluid collections. Vessels:There are atherosclerotic changes involving the aorta and iliac vessels. There is no focal aneurysm. The IVC appears normal. GI tract: There are no specific CT abnormality upper GI tract. There is moderate stool in the colon. There there are moderate diverticula and there is mild thickening of the patterson of the sigmoid colon. There is no perienteric inflammatory change, however. The appendix is visualized and appears normal. Pelvic organs: The prostate is is mildly enlarged. Bladder: The bladder is decompressed by Clement catheter. Bladder trabeculation is suspected. Abdominal and pelvic soft tissues: The extraperitoneal abdominal and pelvic soft tissues appear normal.. Osseous structures: There are no acute osseous findings. Other: None IMPRESSION: No acute CT findings. No mass or inflammatory changes. Suspect chronic changes sigmoid colon with moderate diverticula but no CT findings of acute diverticulitis
[2017-12-09 13:27] VITALS: BP 137/58
== END 2017-12-09 13:07 | disposition home or self-care (01) ==
LOC: ED 07:51
DX: R33.9 Retention of urine, unspecified (principal); N40.0 Benign prostatic hyperplasia without lower urinary tract symptoms; R00.1 Bradycardia, unspecified; I45.10 Unspecified right bundle-branch block; K82.4 Cholesterolosis of gallbladder; F17.210 Nicotine dependence, cigarettes, uncomplicated; Z88.8 Allergy status to other drugs, medicaments and biological substances
CPT/HCPCS: 36415; 71045; 74177; 76705; 80053; 80162; 81003; 81015; 83605; 84484; 85025; 87086; 93005; 96361; 96374; 99284; A9270-GY; J2405; Q9967

== ENCOUNTER 2017-12-17 16:43 | Emergency (ER) | payer MEDICARE, MEDICAID ==
--- OUTSIDE RECORDS SUMMARY | 2017-12-17 16:52 | XMS REPORT ---
:1940 External Reference #:[id number] Author Organization [employer] Address [address] [place] [address] Phone [phone] Care Team Providers Name Role Phone Angel Jiménez MD Care Team Information Brick Paver Unavailable Angel Jiménez MD Primary Care Physician Unavailable Payers Type Date Identification Numbers Payment Provider Subscriber Commercial Expires: Policy Number: [id number] [facility] Erick Rockwell JR 2015 (Oon) PayID: [id number] [address] [place] [address] Medigap Part B Policy Number: [id number] Medicaid Erick Rockwell JR Group Name: 1 1 [address] PayID: [id number] [place] [address] Medigap Part B Policy Number: [id number] [employer] Medicare Erick Rockwell JR PayID: [id number] [address] [place] [address] Problems Date Description Provider Status Onset: 03/02/2013 Syncope and collapse Ashwini Hitchcock M.D. Onset: 03/02/2013 Paroxysmal supraventricular Ashwini Hitchcock tachycardia Beny Onset: 03/02/2013 Type 2 diabetes mellitus Ashwini Hitchcock M.D. Onset: 03/02/2013 Essential hypertension Ashwini Hitchcock M.D. Onset: 03/02/2013 Electrocardiogram abnormal Ashwini Hitchcock M.D. Onset: 03/02/2013 Hyperlipidemia Ashwini Hitchcock M.D. Onset: 03/02/2013 Right bundle branch block Ashwini Hitchcock M.D. Onset: 12/11/2017 Benign prostatic hypertrophy with James Ingram MD Active outflow obstruction Family History Date Family Member(s) Problem(s) Comments : (age 83 Father due to Diabetes Years) Father due to Natural () Causes : (age 98 Mother due to Unknown Years) Causes Mother due to Natural () Causes Children 3 sons 3 daughter all alive and well First Sister Alive And Well Second Sister Alive And Well Social History Type Date Description Comments Marital Status Single Lives With Alone Occupation Retired works with [employer] Cigarette Use currently smokes 1/2 Pack has smoked for 50 years Daily Cigarette Use Light tobacco smoker (10 or fewer cigarettes/day) ETOH Use Denies alcohol use Recreational Drug Use Denies Drug Use Smoking Patient is a current smoker, 5 cigarettes per day smokes every day Daily Caffeine Consumes on average 3 cups of regular coffee per day Exercise Type/Frequency Exercises regularly lifts weights an rides bike evey Allergies, Adverse Reactions, Alerts Date Description Reaction Status Severity Comments 04/04/2009 NKDA active Medications Medication Date Status Form Strength Qnty SIG Indications Ordering Provider Digoxin 12/11/ Active Tablets 250mcg 30tabs 1 by mouth James 2017 every other MD Juan Jose day alternating with 125mg tab Tamsulosin 12/11/ Active Capsules 0.4mg 30caps take 1 tab N40.1 James HCL 2018 daily. MD Juan Jose Pradaxa / Active Capsules 150mg 180cap 1 cap by Unknown 0000 s mouth twice a day Losartan / Active Tablets 25mg 90tabs 1 po qd Unknown Potassium 0000 Lovaza / Active Capsules 1gm 360cap 2 po bid Unknown 0000 s Digoxin / Active Tablets 125mcg 1 by mouth Unknown 0000 every other day Keflex 12/13/ Hx Capsules 500mg 30caps 1 tab by Teddy 2013 - mouth three Gabino 05/29/ times a day M.Haresh 2014 [place] 11/30/ Hx Tablets 5-325mg 60tabs 1 by mouth Teddy 2013 - every 4 hours Gabino 05/29/ as needed M.Haresh 2014 Tramadol HCL 10/13/ Hx Tablets 50mg 40tabs 1 tablets by Teddy 2014 - mouth q6 Gabino 05/29/ hours as Beny 2015 needed pain Metformin 04/04/ Hx 500mg 60unit 1 po bid Qutaybeh 2008 S. Saleem Alcazar M.D. Fish Oil 04/04/ Hx Capsules 500mg 120cap 2 po bid Qutaybeh 2008 S. Saleem Moon M.D. Toprol XL 04/04/ Hx Tablets ER 25mg 30tabs 1 po qd Qutaybeh 2008 - 24HR S. Saleem Moon M.D. Tramadol HCL / Hx Tablets 50mg 50tabs four times a Teddy - day as needed Gabino 05/29/ Beny 2014 Fenofibrate / Hx Capsules 134mg 30caps once daily Unknown Micronized - 2017 Digoxin / Hx Tablets 0.125mg 90tabs 1 po qd Qutaybeh - S. Saleem Alcazar M.D. Lunesta / Hx Tablets 3mg 30tabs one tab hs Unknown - 2014 Hydrocodone-A / Hx Unknown cetaminophen - 2014 Unisom / Hx Tablets 25mg 1 as needed Unknown 0000 - for sleep 2017 Vital Signs Date Vital Result Comment 12/11/2017 Height 73 inches 6'1" Weight 177.00 lb Heart Rate 88 /min BP Systolic 101 mmHg BP Diastolic 49 mmHg BP Systolic Sitting 114 mmHg BP Diastolic Sitting 57 mmHg Respiratory Rate 16 /min Body Temperature 99.4 F Pain Level 0 O2 % BldC Oximetry 98 % BMI (Body Mass Index) 23.3 kg/m2 04/09/2016 Height 73 inches 6'1" Weight 188.75 lb with coat and shoes Heart Rate 84 /min BP Systolic Sitting 138 mmHg LA reg cuff BP Diastolic Sitting 68 mmHg LA reg cuff BMI (Body Mass Index) 24.9 kg/m2 Ejection Fraction 50% - 55% echo 02/21/13 09/18/2015 Height 73 inches 6'1" Weight 184.00 lb w/shoes Heart Rate 76 /min BP Systolic Sitting 138 mmHg LA reg cuff BP Diastolic Sitting 70 mmHg LA reg cuff BMI (Body Mass Index) 24.3 kg/m2 Ejection Fraction 50-55% Echo 02/21/13 05/30/2014 Height 73 inches 6'1" Weight 201.00 lb with boots, coat Heart Rate 72 /min BP Systolic Sitting 144 mmHg LA, reg BP Diastolic Sitting 74 mmHg LA, reg BMI (Body Mass Index) 26.5 kg/m2 01/13/2014 Height 73 inches 6'1" Weight 188.00 lb Heart Rate 63 /min BMI (Body Mass Index) 24.8 kg/m2 12/23/2013 Height 73 inches 6'1" Weight 188.00 lb Heart Rate 68 /min BP Systolic 140 mmHg BP Diastolic 80 mmHg BMI (Body Mass Index) 24.8 kg/m2 12/16/2013 Height 73 inches 6'1" Weight 188.00 lb Body Temperature 99.0 F BMI (Body Mass Index) 24.8 kg/m2 12/13/2013 Height 73 inches 6'1" Weight 188.00 lb Body Temperature 98.1 F BMI (Body Mass Index) 24.8 kg/m2 11/30/2013 Height 73 inches 6'1" Weight 188.00 lb Body Temperature 98.2 F BMI (Body Mass Index) 24.8 kg/m2 11/15/2013 Height 73 inches 6'1" Weight 188.00 lb Heart Rate 67 /min BP Systolic 134 mmHg BP Diastolic 64 mmHg BMI (Body Mass Index) 24.8 kg/m2 03/02/2013 Height 73 inches 6'1" Weight 202.00 lb Heart Rate 80 /min BP Systolic Sitting 140 mmHg BP Diastolic Sitting 70 mmHg Respiratory Rate 20 /min BMI (Body Mass Index) 26.6 kg/m2 04/04/2009 Height 73 inches 6'1" Weight 251.00 lb Heart Rate 94 /min BP Systolic Sitting 140 mmHg L BP Diastolic Sitting 70 mmHg L BMI (Body Mass Index) 33.1 kg/m2 Results Test Date Test Result H/L Range Note Surgical Pathology 11/21/2013 S RUN DATE: 11/29/ <SEE NOTE> 1 1 RUN DATE: 11/29/13 [facility] LIVE PAGE 1 RUN TIME: [id number], [place] [address] Specimen Inquiry Name: ERICK ROCKWELL : [address]: Teddy Lloyd MD Acct: [id number] Unit: [id number] AGE: 73 Location: OR Re11/21/13 SEX: M Status: REG [facility] SPEC: [id number] SHEBA: 11/21/13- [facility] DR: Teddy Lloyd MD REQ: [id number] RECD: 11/21/137 STATUS: SOUT _ ORDERED: Decal, LEVEL III FINAL DIAGNOSIS Right foot, second metatarsal resection: Severe degenerative osteoarthritic changes. PRE-OPERATIVE DIAGNOSIS Hammertoe right foot second metatarsal. GROSS DESCRIPTION The specimen is received in formalin labeled Erick Rockwell, Bone Cut Hammertoe Right Foot and consists of two jonas-pink irregular portions of bone measuring 1.3 x 1.0 x 0.2 cm. and 1.5 x 0.7 x 0.5 cm. The larger portion is partially surfaced by a glistening jonas- white articular surface. The specimen is serially sectioned and entirely submitted in one cassette following decalcification. MICROSCOPIC DESCRIPTION Signed (signature on file) Saqib Agrawal MD 1116 END OF REPORT * ML=Testing performed at Main Lab DEPARTMENT OF PATHOLOGY, [address] [place] [address] Saqib Agrawal M.D. Director [facility] # [id number] Procedures Date CPT Code Description Status 04/09/2016 14374 EKG Tracing & Interpretation Completed 09/18/2015 79287 EKG Tracing & Interpretation Completed 05/30/2014 19732 EKG Tracing & Interpretation Completed 11/21/2013 11908 Correction Hammertoe Completed 11/21/2013 52288 Correction Hammertoe Completed 10/13/2013 59758 Rad Exam; Foot Comp Completed 03/02/2013 97478 EKG Tracing & Interpretation Completed 02/22/2013 04962 EKG, Interpretation Only Completed 02/21/2013 94361 ECHO Transthorasic Realtime 2D W Doppler & Color Flow Completed Hosp 02/21/2013 60178 EKG, Interpretation Only Completed 12/16/2011 84391 Color Flow Doppler/Interp & Reprt Completed 12/16/2011 17216 Pulse Wave/Continuous-Interp.RPT Completed 12/16/2011 55248 ECHO Transthorasic Realtime 2D W Doppler & Color Flow Completed Hosp 12/16/2011 87369 EKG, Interpretation Only Completed 05/27/2010 80742 Rad Exam; Knee, Ap&L Completed 05/27/2010 88646 Xray Knee 3 Views Completed 04/04/2009 26309 EKG Tracing & Interpretation Completed 03/20/2009 78278 Treadmill Interp/Report Only Completed 03/20/2009 98223 Stress Test Supervsn W/Out I/R Completed 03/14/2009 92319 Holter Monitor Interpretation Completed 03/12/2009 18384 ECHO Transthorasic Realtime 2D W Doppler & Color Flow Completed Hosp 01/22/2007 06530 Color Doppler Completed 01/22/2007 59657 Color Doppler Completed 01/22/2007 61858 Color Doppler Completed 01/22/2007 58434 Pulse Doppler & Continuous Wave Completed 01/22/2007 15712 Pulse Doppler & Continuous Wave Completed 01/22/2007 50841 Echocardiogram Completed 01/22/2007 46305 Echocardiogram Completed 01/22/2007 92370 Echocardiogram Completed Encounters Type Date Location Provider CPT E/M Dx Office Visit 05/19/2016 [facility] AT Amanda [place]GURU, [address] E11.59 1:42p [facility] RN, CASING TIER-BC R23.8 I10 F17.210 Office Visit 04/09/2016 9:00a [facility] NATE Duenas [id number] I10 I45.19 Z72.0 Office Visit 09/18/2015 8:20a [facility] Gregoriotaybeh S. Saleem, 50458 I10 M.D. R94.31 E78.4 I45.19 Z72.0 Z71.6 Office Visit 05/30/2014 8:40a [facility] Qutaybeh S. Saleem, 28226 250.00 M.D. 401.9 794.31 272.4 426.4 Office Visit 10/13/2013 1:30p [facility] Lloyd M.D. 50666 735.4 C.M.A. Office Visit 03/02/2013 11:20a [facility] Gregoriotaybelena SOliverio 66966 780.2 Beny Monge 427.0 250.00 401.9 794.31 272.4 426.4 Office Visit 02/22/2013 6:23p [facility], [place] Steve 01264 780.2 Hospitalists Beny Weber 427.0 250.00 401.9 Office Visit 02/21/2013 6:22p [facility],neetu Steve 99306 780.2 Hospitalists Beny Weber 427.0 250.00 401.9 Office Visit 12/17/2011 1:05p [facility] Lanette Mcmillan M.D. 26667 434.91 Services Of [employer] Office Visit 12/16/2011 9:03a [facility] Milton Mckenzie, 44453 435.8 Services Of Vee Swan Office Visit 05/27/2010 9:30a [facility] Tee Aleman M.D. 84998 716.96 C.M.A. Office Visit 04/04/2009 10:20a [facility] Bharti Doshi 29070 427.1 Beny Monge 785.1 427.0 Office Visit 11/27/2006 11:00a [facility] Mic Bazzi, 65007 721.3 Of Vee Swan Plan of Care 12/11/2017 - James Ingram, MDR31.0 Gross hematuriaComments:We recommend seeing Dr. Wyatt by mid week at the latest given the worsening hematuria. Stop the pradaxa for now while the bleeding.I45.19 Other right bundle-branch snquxM46 Essential ( primary) vrgzcqrwwkiaH47.210 Nicotine dependence, cigarettes, xhdzkqlwveauvC47.4 Other ymerwqhzqnauxqG01.1 Benign prostatic hyperplasia with lower urinary tract sympNew Medication:Tamsulosin HCL 0.4 mgComments:We are starting you on flomax.
--- NOTE | 2017-12-17 17:25 | ED ---
Upper Extremity Pain - HPI Summary HPI Summary: This patient is a 77 year old M [facility] accompanied by his son with a chief complaint of LUE swelling since this AM. Rx predaxa which was believed to have caused hematuria, which required a Clement catheter placement and discontinuing the predaxa. Pt denies pain in his arm. - History of Current Complaint Chief Complaint: EDExtremityUpper Stated Complaint: SWOLLEN LT ARM Time Seen by Provider: 12/17/17 16:48 Hx Obtained From: Patient Mechanism Of Injury: Other - no trauma Onset/Duration: Started Hours Ago, Atraumatic, Still Present Timing: Constant Severity Initially: Mild Severity Currently: Mild Pain Location: Arm, Forearm Aggravating Factor(s): Nothing Alleviating Factor(s): Nothing Associated Signs & Symptoms: Positive: Swelling. Negative: Fever - Allergies/Home Medications Allergies/Adverse Reactions: Allergies Allergy/AdvReac Type Severity Reaction Status Date / Time blue dye Allergy Itching Verified 12/17/17 16:51 niacin Allergy Itching Verified 12/17/17 16:51 simvastatin Allergy Itching Verified 12/17/17 16:51 PMH/Surg Hx/FS Hx/Imm Hx Endocrine/Hematology History: Reports: Hx Diabetes Cardiovascular History: Reports: Hx Hypertension Denies: Hx Congestive Heart Failure Musculoskeletal History: Reports: Hx Arthritis Sensory History: Reports: Hx Cataracts, Hx Contacts or Glasses Denies: Hx Glaucoma, Hx Deafness, Hx Hearing Aid, Hx Hearing Problem Opthamlomology History: Reports: Hx Cataracts, Hx Contacts or Glasses Denies: Hx Glaucoma EENT History: Denies: Hx Deafness Neurological History: Denies: Hx Dementia, Hx Developmental Delay, Hx Headaches, Hx Migraine, Hx Nerve Disease, Hx Seizures, Hx Spinal Cord Injury Psychiatric History: Denies: Hx Autism - Surgical History Surgery Procedure, Year, and Place: 2003-Torn left knee meniscus repair Hx Anesthesia Reactions: No Infectious Disease History: No Infectious Disease History: Denies: Traveled Outside the [place] in Last 30 Days - Family History Known Family History: Negative: Cardiac Disease - Social History Occupation: Retired Lives: With Family Alcohol Use: None Hx Substance Use: No Substance Use Type: Reports: None Hx Tobacco Use: Yes Smoking Status (MU): Light Every Day Tobacco Smoker Type: Cigarettes Amount Used/How Often: 1/2 PPD X 60 YEARS Review of Systems Negative: Fever Positive: no symptoms reported Positive: Edema - left arm. Negative: Arthralgia - no left arm pain, Myalgia - no ri Skin: Other - left arm pain All Other Systems Reviewed And Are Negative: Yes Physical Exam - Summary Physical Exam Summary: General: well-appearing, no pain distress Skin: warm, color reflects adequate perfusion, dry Head: normal Eyes: EOMI, ELLA ENT: normal Neck: supple, nontender Respiratory: CTA, breath sounds present Cardiovascular: RRR Abdomen: soft, nontender Bowel: present Musculoskeletal: LUE swollen Neurological: sensory/motor intact, A&O x3 Psychological: affect/mood appropriate Triage Information Reviewed: Yes Vital Signs On Initial Exam: Initial Vitals Temp Pulse Resp BP Pulse Ox 99.4 F 89 20 142/55 98 12/17/17 16:47 12/17/17 16:47 12/17/17 16:47 12/17/17 16:47 12/17/17 16:47 Vital Signs Reviewed: Yes Diagnostics - Vital Signs Vital Signs Temp Pulse Resp BP Pulse Ox 12/17/17 16:47 99.4 F 89 20 142/55 98 - Laboratory Lab Statement: Any lab studies that have been ordered have been reviewed, and results considered in the medical decision making process. - Ultrasound No standard instances Ultrasound Interpretation: Positive (See Comments) Ultrasound Interpretation Completed By: Radiologist - Venous doppler: NONOCCLUSIVE THROMBUS WITHIN THE LEFT JUGULAR AND SUBCLAVIAN VEINS CONSISTENT WITH DEEP VENOUS THROMBOSIS. Dr. Barragan has reviewed this report. Re-Evaluation - Re-Evaluation First Eval Re-Evaluation Time: 18:19 Change: Unchanged Comment: Informed pt of lab and imaging results, (+) DVT. Discussed admission. Course/Dx - Course Course Of Treatment: DISCUSSED RESULTS WITH THE PATIENT AND FAMILY. RESTART THE PRADAXA FOR THE DVT. NO GROSS BLOOD SEEN IN THE URINE AT THIS TIME. PATIENT IS ON FLOMAX AND HAS UROLOGY F/U 12/24/17. F/U PMD; GET RECHECKED RIGHT AWAY FOR HEMATURIA OR CHEST PAIN/SOB OR ANY OTHER CONCERNS. - Diagnoses Provider Diagnoses: DVT (deep venous thrombosis), Swelling of left upper extremity - Physician Notifications Discussed Care of Patient With: Kinza Sandhu Time Discussed With Above Provider: 18:15 Instructed by Provider To: Other - accepts admission Discharge - Sign-Out/Discharge Documenting (check all that apply): Patient Departure - admit - Discharge Plan Condition: Stable Disposition: HOME Patient Education Materials: Deep Vein Thrombosis (ED) Referrals: Angel Jiménez MD [Primary Care Provider] - Additional Instructions: FOLLOW UP WITH YOUR PRIMARY CARE DOCTOR AND UROLOGY. RESTART THE PRADAXA 150MG TWICE A DAY. GET RECHECKED FOR ANY WORSENING OF YOUR CONDITION; CHEST PAIN, SHORTNESS OF BREATH, BLOOD IN YOUR URINE, FEVER, YOU FEEL ILL OR QUESTIONS OR CONCERNS. - Billing Disposition and Condition Condition: STABLE Disposition: Home - Attestation Statements Document Initiated by Ludy: Yes Documenting Jean Carlosibe: William Villafuerte Provider For Whom Ludy is Documenting (Include Credential): Dr. Gerardo Barragan MD Scribe Attestation: William Delgado scribed for Dr. Gerardo Barragan MD on 12/17/17 at 1944. Scribe Documentation Reviewed: Yes Provider Attestation: The documentation as recorded by the William santos accurately reflects the service I personally performed and the decisions made by me, Dr. Gerardo Barragan MD
--- NOTE | 2017-12-17 18:03 | RAD ---
INDICATION: Pain and swelling. COMPARISON: None TECHNIQUE: Duplex interrogation of the left upperextremity was performed. FINDINGS: Deep veins: The visualized jugular and subclavian vein demonstrate age indeterminant thrombus. The vessels are noncompressible. There does appear to be partial recanalization, however. The Axillary, brachial, radial, and ulnar veins are patent. Superficial veins: The cephalic and basilic veins are patent.. Soft tissues:There is soft tissue edema. IMPRESSION: NONOCCLUSIVE THROMBUS WITHIN THE LEFT JUGULAR AND SUBCLAVIAN VEINS CONSISTENT WITH DEEP VENOUS THROMBOSIS.
[2017-12-17] MEDS ORDERED: Dabigatran CAP(NF) 150 MG CAP PO ONE (18:28)
[2017-12-17 18:58] VITALS: BP 128/48
== END 2017-12-17 18:54 | disposition home or self-care (01) ==
LOC: ED 16:43
DX: I82.602 Acute embolism and thrombosis of unspecified veins of left upper extremity (principal); R60.9 Edema, unspecified; F17.210 Nicotine dependence, cigarettes, uncomplicated
CPT/HCPCS: 99282; A9270-GY

== ENCOUNTER 2017-12-28 16:09 | Inpatient (IN) | payer MEDICARE, MEDICAID ==
--- NOTE | 2017-12-28 16:52 | ED ---
Dizziness - History Of Current Complaint Stated Complaint: SYNCOPE Time Seen by Provider: 12/28/17 16:27 Hx Obtained From: Patient Timing: Days - 1 day Severity Initially: Mild Severity Currently: Mild Character: Weak, Dizzy Aggravating Factor(s): Nothing Alleviating Factor(s): Nothing - Allergies/Home Medications Allergies/Adverse Reactions: Allergies Allergy/AdvReac Type Severity Reaction Status Date / Time blue dye Allergy Itching Verified 12/28/17 16:45 niacin Allergy Itching Verified 12/28/17 16:45 simvastatin Allergy Itching Verified 12/28/17 16:45 PMH/Surg Hx/FS Hx/Imm Hx Endocrine/Hematology History: Reports: Hx Diabetes Cardiovascular History: Reports: Hx Hypertension Denies: Hx Congestive Heart Failure Musculoskeletal History: Reports: Hx Arthritis Sensory History: Reports: Hx Cataracts, Hx Contacts or Glasses Denies: Hx Glaucoma, Hx Deafness, Hx Hearing Aid, Hx Hearing Problem Opthamlomology History: Reports: Hx Cataracts, Hx Contacts or Glasses Denies: Hx Glaucoma Neurological History: Denies: Hx Dementia, Hx Developmental Delay, Hx Headaches, Hx Migraine, Hx Nerve Disease, Hx Seizures, Hx Spinal Cord Injury Psychiatric History: Denies: Hx Autism - Surgical History Surgery Procedure, Year, and Place: 2003-Torn left knee meniscus repair Hx Anesthesia Reactions: No Infectious Disease History: No Infectious Disease History: Denies: Traveled Outside the [place] in Last 30 Days - Family History Known Family History: Negative: Cardiac Disease - Social History Alcohol Use: None Hx Substance Use: No Substance Use Type: Reports: None Hx Tobacco Use: Yes Smoking Status (MU): Light Every Day Tobacco Smoker Type: Cigarettes Amount Used/How Often: 1/2 PPD X 60 YEARS Review of Systems Negative: Fever, Chills Negative: Erythema Negative: Sore Throat Negative: Chest Pain Negative: Shortness Of Breath, Cough Negative: Abdominal Pain, Vomiting, Nausea Negative: dysuria, hematuria Positive: Myalgia - left hip pain. Negative: Edema Positive: Bruising - to left side, Other - abrasion to left knee. Negative: Rash Neurological: Other - positive dizziness Positive: Weakness All Other Systems Reviewed And Are Negative: Yes Physical Exam Triage Information Reviewed: Yes Vital Signs On Initial Exam: Initial Vitals Temp Pulse Resp BP Pulse Ox 98.4 F 79 17 131/62 96 12/28/17 16:38 12/28/17 16:38 12/28/17 16:38 12/28/17 16:38 12/28/17 16:38 Vital Signs Reviewed: Yes Diagnostics - Vital Signs Vital Signs Temp Pulse Resp BP Pulse Ox 12/28/17 16:38 98.4 F 79 17 131/62 96 - Laboratory Lab Statement: Any lab studies that have been ordered have been reviewed, and results considered in the medical decision making process. - EKG 16:35 Cardiac Rate: NL - at 81 bpm EKG Rhythm: Sinus Rhythm ST Segment: Normal Ectopy: None EKG Interpretation: NSR at 81 bpm with nml intervals and no ischemic changes. Discharge - Discharge Plan Referrals: Angel Jiménez MD [Primary Care Provider] - - Attestation Statements Document Initiated by Scribe: Yes Documenting Scribe: Cora Cadena Provider For Whom Scribe is Documenting (Include Credential): Keo Cameron MD Scribe Attestation: Cora Delgado, scribed for Keo Cameron MD on 12/28/17 at 1654.
[2017-12-28 17:12] LABS: ABS Basophils 0 10^3/ul (0-0.2); ABS Eosinophils 0 10^3/ul (0-0.6); ABS Lymphocytes 0.8 10^3/ul (1.0-4.8); ABS Monocytes 0.5 10^3/ul (0-0.8); ABS Neutrophils 12.2 10^3/ul (1.5-7.7); ABS Nucleated RBC 0 10^3/ul; Eosinophil % 0.1 % (0-6); Hematocrit 43 % (42-52); Hemoglobin 14.6 g/dl (14.0-18.0); Lymphocyte % 6.1 % (25-47); Mean Corpuscular HGB Conc 34 g/dl (31-36); Mean Corpuscular Hemoglobin 32 pg (27-31); Mean Corpuscular Volume 94 fL (80-94); Nucleated Red Blood Cells % 0; Platelet Count 334 10^3/ul (150-450); Red Blood Count 4.58 10^6/ul (4.00-5.40); Red Cell Distribution Width 14 % (10.5-15); White Blood Count 13.6 10^3/ul (3.5-10.8)
[2017-12-28 17:24] LABS: Urine Appearance Cloudy; Urine Blood 2+ (Negative); Urine Color Amber; Urine Ketones Negative (Negative); Urine Protein 2+(100 mg/dL) (Negative); Urine Red Blood Cell 3+(>10/hpf) (Absent); Urine Specific Gravity 1.027 (1.010-1.030); Urine Urobilinogen Positive (Negative); Urine White Blood Cell 3+(>20/hpf) (Absent)
[2017-12-28 17:29] LABS: EGFR Non-African American 39.9 (>60)
--- NOTE | 2017-12-28 17:54 | ED ---
Dizziness - HPI Summary HPI Summary: The pt is a 77 y/o male presenting to [facility] c/o dizziness since 1 day ago. He notes falls (twice in 24 hours), LOC (one episode today morning), SOB, a swollen prostate , weakness, R hip pain , bruises on the R side , abrasion on the R knee ,difficulty moving and walking, and dehydration. The R hip pain is aggravated by palpation. The pt denies R shoulder pain. He has been seeing a urologist and had a Clement catheter replaced 4 days ago. - History Of Current Complaint Chief Complaint: EDDizziness Stated Complaint: SYNCOPE Time Seen by Provider: 12/28/17 16:27 Hx Obtained From: Patient, Family/Desizing Machine Back Tender Onset/Duration: Still Present Character: Weak, Dizzy Associated Signs And Symptoms: Positive: Negative - R shoulder pain, SOB, Other : - Positive: falls, a swollen prostate , R hip pain , bruises on the R side , abrasion on the R knee , difficulty moving and walking , and dehydration. - Allergies/Home Medications Allergies/Adverse Reactions: Allergies Allergy/AdvReac Type Severity Reaction Status Date / Time blue dye Allergy Itching Verified 12/28/17 16:45 niacin Allergy Itching Verified 12/28/17 16:45 simvastatin Allergy Itching Verified 12/28/17 16:45 Home Medications: Home Medications Aspirin/Caffeine [Krunal Back & Body Pain Ex] 3 tab PO DAILY PRN 12/28/17 [ History Confirmed 12/28/17] Finasteride TAB* [Proscar TAB*] 5 mg PO DAILY 12/28/17 [History Confirmed ] Zolpidem Tartrate [Ambien] 5 mg PO BEDTIME PRN MDD 1 12/28/17 [History Confirmed 12/28/17] PMH/Surg Hx/FS Hx/Imm Hx Previously Healthy: No Endocrine/Hematology History: Reports: Hx Diabetes Cardiovascular History: Reports: Hx Hypertension Denies: Hx Congestive Heart Failure Musculoskeletal History: Reports: Hx Arthritis Sensory History: Reports: Hx Cataracts, Hx Contacts or Glasses Denies: Hx Glaucoma Opthamlomology History: Reports: Hx Cataracts, Hx Contacts or Glasses Denies: Hx Glaucoma Neurological History: Reports: Other Neuro Impairments/Disorders - Hx of Parkinson's Denies: Hx Dementia, Hx Developmental Delay, Hx Headaches, Hx Migraine, Hx Nerve Disease, Hx Seizures, Hx Spinal Cord Injury Psychiatric History: Denies: Hx Autism - Surgical History Surgery Procedure, Year, and Place: 2003-Torn left knee meniscus repair Hx Anesthesia Reactions: No Infectious Disease History: No Infectious Disease History: Denies: Traveled Outside the [place] in Last 30 Days - Family History Known Family History: Negative: Cardiac Disease - Social History Occupation: Retired Lives: With Family Alcohol Use: None Hx Substance Use: No Substance Use Type: Reports: None Hx Tobacco Use: Yes Smoking Status (MU): Light Every Day Tobacco Smoker Type: Cigarettes Amount Used/How Often: 1/2 PPD X 60 YEARS Review of Systems Constitutional: Other - Positive: dizziness , dehydration Positive: Shortness Of Breath Positive: other - Positive: Swollen prostate Musculoskeletal: Other - Positive: 2 falls in 24 hours, difficulty moving and walking, R hip pain, Positive: Bruising - On the R side , Other - Positive: abrasion on the R knee Positive: Weakness, Syncope - 1 episode in 24 hours All Other Systems Reviewed And Are Negative: Yes Physical Exam - Summary Physical Exam Summary: Appearance: The patient is well-nourished in no acute distress and in no acute pain. Skin: The skin is warm and dry and skin color reflects adequate perfusion. HEENT: The head is normocephalic and atraumatic. The pupils are equal and reactive. The conjunctivae are clear and without drainage. Nares are patent and without drainage. Mouth reveals moist mucous membranes and the throat is without erythema and exudate. The external ears are intact. The ear canals are patent and without drainage. The tympanic membranes are intact. Neck: The neck is supple with full range of motion and non-tender. There are no carotid bruits. There is no neck vein distension. Respiratory: Chest is non-tender. Lungs are clear to auscultation . decreased breath sounds in the R side. Cardiovascular: Heart is regular rate and rhythm. There is no murmur or rub auscultated. There is no peripheral edema and pulses are symmetrical and equal. Abdomen: The abdomen is soft and non-tender. There are normal bowel sounds heard in all four quadrants and there is no organomegaly palpated. Musculoskeletal: Tenderness of the R hip to plapation. There is no back tenderness noted. Extremities are non-tender with full range of motion. There is good capillary refill. There is no peripheral edema or calf tenderness elicited. Neurological: Patient is alert and oriented to person, place and time. The patient has symmetrical motor strength in all four extremities. Cranial nerves are grossly intact. Deep tendon reflexes are symmetrical and equal in all four extremities. Psychiatric: The patient has an appropriate affect and does not exhibit any anxiety or depression. GCS: 15 Triage Information Reviewed: Yes Vital Signs On Initial Exam: Initial Vitals Resp 23 12/28/17 16:37 Vital Signs Reviewed: Yes Diagnostics - Vital Signs Vital Signs Temp Pulse Resp BP Pulse Ox 12/28/17 17:10 76 19 131/62 97 12/28/17 17:00 78 12 97 12/28/17 16:53 96 12/28/17 16:38 98.4 F 76 13 131/62 96 12/28/17 16:37 23 - Laboratory Lab Results: Lab Results 12/28/17 12/28/17 12/28/17 Range/Units 17:05 17:05 17:05 WBC 13.6 H (3.5-10.8) 10^3/ul RBC 4.58 (4.00-5.40) 10^6/ul Hgb 14.6 (14.0-18.0) g/dl Hct 43 (42-52) % MCV 94 (80-94) fL MCH 32 H (27-31) pg MCHC 34 (31-36) g/dl RDW 14 (10.5-15) % Plt Count 334 (150-450) 10^3/ul MPV 8.0 (7.4-10.4) um3 Neut % (Auto) 89.9 H (38-83) % Lymph % (Auto) 6.1 L (25-47) % [place]ug[place] % (Auto) 3.7 (0-7) % Eos % (Auto) 0.1 (0-6) % Baso % (Auto) 0.2 (0-2) % Absolute Neuts (auto) 12.2 H (1.5-7.7) 10^3/ul Absolute Lymphs (auto) 0.8 L (1.0-4.8) 10^3/ul Absolute Monos (auto) 0.5 (0-0.8) 10^3/ul Absolute Eos (auto) 0 (0-0.6) 10^3/ul Absolute Basos (auto) 0 (0-0.2) 10^3/ul Absolute Nucleated RBC 0 10^3/ul Nucleated RBC % 0 Sodium 138 (135-145) mmol/L Potassium 4.3 (3.5-5.0) mmol/L Chloride 108 (101-111) mmol/L Carbon Dioxide 22 (22-32) mmol/L Anion Gap 8 (2-11) mmol/L BUN 24 (6-24) mg/dL Creatinine 1.68 H (0.67-1.17) mg/dL Est GFR ( Amer) 48.3 (>60) Est GFR (Non-Af Amer) 39.9 (>60) BUN/Creatinine Ratio 14.3 (8-20) Glucose 161 H (70-100) mg/dL Lactic Acid (0.5-2.0) mmol/L Calcium 9.7 (8.6-10.3) mg/dL Magnesium 2.1 (1.9-2.7) mg/dL Total Bilirubin 0.60 (0.2-1.0) mg/dL AST 27 (13-39) U/L ALT 13 (7-52) U/L Alkaline Phosphatase 39 (34-104) U/L Troponin I 1.51 H* (<0.04) ng/mL Total Protein 6.8 (6.4-8.9) g/dL Albumin 3.8 (3.2-5.2) g/dL Globulin 3.0 (2-4) g/dL Albumin/Globulin Ratio 1.3 (1-3) TSH Pending Urine Color Paige Urine Appearance Cloudy Urine pH 5.0 (5-9) Ur Specific [place] 1.027 (1.010-1.030) Urine Protein 2+(100 mg/dl) A (Negative) Urine Ketones Negative (Negative) Urine Blood 2+ A (Negative) Urine Nitrate Negative (Negative) Urine Bilirubin Negative (Negative) Urine Urobilinogen Positive A (Negative) Ur Leukocyte Esterase 2+ A (Negative) Urine WBC (Auto) 3+(>20/hpf) A (Absent) Urine RBC (Auto) 3+(>10/hpf) A (Absent) Calcium Oxalate Crystal Present A (Absent) Urine Bacteria Absent (Absent) Hyaline Casts Present A (Absent) Urine Glucose Negative (Negative) 12/28/17 Range/Units 17:05 WBC (3.5-10.8) 10^3/ul RBC (4.00-5.40) 10^6/ul Hgb (14.0-18.0) g/dl Hct (42-52) % MCV (80-94) fL MCH (27-31) pg MCHC (31-36) g/dl RDW (10.5-15) % Plt Count (150-450) 10^3/ul MPV (7.4-10.4) um3 Neut % (Auto) (38-83) % Lymph % (Auto) (25-47) % [place] % (Auto) (0-7) % Eos % (Auto) (0-6) % Baso % (Auto) (0-2) % Absolute Neuts (auto) (1.5-7.7) 10^3/ul Absolute Lymphs (auto) (1.0-4.8) 10^3/ul Absolute Monos (auto) (0-0.8) 10^3/ul Absolute Eos (auto) (0-0.6) 10^3/ul Absolute Basos (auto) (0-0.2) 10^3/ul Absolute Nucleated RBC 10^3/ul Nucleated RBC % Sodium (135-145) mmol/L Potassium (3.5-5.0) mmol/L Chloride (101-111) mmol/L Carbon Dioxide (22-32) mmol/L Anion Gap (2-11) mmol/L BUN (6-24) mg/dL Creatinine (0.67-1.17) mg/dL Est GFR ( Amer) (>60) Est GFR (Non-Af Amer) (>60) BUN/Creatinine Ratio (8-20) Glucose (70-100) mg/dL Lactic Acid 1.9 (0.5-2.0) mmol/L Calcium (8.6-10.3) mg/dL Magnesium (1.9-2.7) mg/dL Total Bilirubin (0.2-1.0) mg/dL AST (13-39) U/L ALT (7-52) U/L Alkaline Phosphatase (34-104) U/L Troponin I (<0.04) ng/mL Total Protein (6.4-8.9) g/dL Albumin (3.2-5.2) g/dL Globulin (2-4) g/dL Albumin/Globulin Ratio (1-3) TSH Urine Color Urine Appearance Urine pH (5-9) Ur Specific Byron (1.010-1.030) Urine Protein (Negative) Urine Ketones (Negative) Urine Blood (Negative) Urine Nitrate (Negative) Urine Bilirubin (Negative) Urine Urobilinogen (Negative) Ur Leukocyte Esterase (Negative) Urine WBC (Auto) (Absent) Urine RBC (Auto) (Absent) Calcium Oxalate Crystal (Absent) Urine Bacteria (Absent) Hyaline Casts (Absent) Urine Glucose (Negative) Result Diagrams: 12/29/17 05:37 12/29/17 05:33 Lab Statement: Any lab studies that have been ordered have been reviewed, and results considered in the medical decision making process. - Radiology Hip/Pelvis X-Ray Radiology Interpretation Completed By: ED Physician - IMPRESSION: No acute pathology; No fractures CXR Radiology Interpretation Completed By: ED Physician - IMPRESSION: No acute pathology Bilateral Hip/Pelvis X-Ray Radiology Interpretation Completed By: ED Physician - IMPRESSION: No acute pathology; No fractures - CT Brain CT CT Interpretation Completed By: Radiologist - IMPRESSION: No acute intracranial abnormality. No change from the comparison study. The ED physician reviewed this radiology report. - EKG 16:35 Cardiac Rate: NL - 81 bpm EKG Interpretation: T wave inversion in the septal leads ; Not significantly changed from 12/09 21:37 Cardiac Rate: NL - 88 bpm EKG Rhythm: Sinus Rhythm EKG Interpretation: T wave inversion in the septal leads EKG Comparison: No Significant Change - Compared to the one done at 16:35 Dizzy Course/Dx - Course Course Of Treatment: Mr. Shoemaker presented to the emergency department after 2 episodes of syncope. Although his EKG showed no acute ischemic changes his initial troponin was 1.5 and the hospitalist was contacted for admission. He was given aspirin and continued to deny chest pain here. - Diagnoses Provider Diagnoses: Syncope, NSTEMI (non-ST elevated myocardial infarction) - Provider Notifications Discussed Care Of Patient With: Panda Hardy - Hospitalist Time Discussed With Above Provider: 19:40 Instructed by Provider To: Admit As Inpatient - Critical Care Time Critical Care Time: 30-74 min Discharge - Sign-Out/Discharge Documenting (check all that apply): Patient Departure - Admit - Discharge Plan Condition: Stable Disposition: ADMITTED TO [facility] - Billing Disposition and Condition Condition: STABLE Disposition: Admitted to [facility] - Attestation Statements Document Initiated by Ludy: Yes Documenting Scribe: Reanna Shah Provider For Whom Ludy is Documenting (Include Credential): Dr. Asif Norris MD Scribe Attestation: Reanna Delgado , scribed for Dr. Asif Norris MD on 12/29/17 at 1537. Scribe Documentation Reviewed: Yes Provider Attestation: The documentation as recorded by the scribe, Reanna Shah accurately reflects the service I personally performed and the decisions made by me, Dr. Asif Norris MD
[2017-12-28 18:48] LABS: INR 1.22 (0.77-1.02)
--- NOTE | 2017-12-28 19:16 | RAD ---
EXAM: CT Head Without Intravenous Contrast CLINICAL HISTORY: 77 years old, male; Injury or trauma; Fall; Initial encounter; Concussion / head injury; Without loss of consciousness TECHNIQUE: Axial computed tomography images of the head/brain without intravenous contrast. All CT scans at this facility use at least one of these dose optimization techniques: automated exposure control; mA and/or kV adjustment per patient size (includes targeted exams where dose is matched to clinical indication); or iterative reconstruction. COMPARISON: BRAIN WO CT BRAIN WO 03/23/2017 9:44 PM FINDINGS: Brain: Chronic ischemic changes including large area of encephalomalacia in the right frontoparietal region. Diffuse atrophy. No mass, acute hemorrhage, or edema. Ventricles: Compensatory ventriculomegaly. Small colloid cyst identified and without change from the comparison study. Prominent cavum septum pellucidum. Bones/joints: Normal. No acute fracture. Sinuses: Normal as visualized. No acute sinusitis. Mastoid air cells: Normal as visualized. No mastoid effusion. Soft tissues: Normal. Vasculature: Atherosclerotic calcification. IMPRESSION: No acute intracranial abnormality. No change from the comparison study. RECOMMENDATION: 1. Consider further evaluation of the colloid cyst with MR if not already accomplished.
--- NOTE | 2017-12-28 21:36 | HP ---
H&P (Free Text) History and Physical: PCP: Lian Jiménez MD Date/Time: 12/28/20172114 CC: syncope HPI: Mr Shoemaker is a 77YO male poor historian HX DM2, AFIB, CVA, DVT, Parkinsonism , HTN, hypertriglyceridemia, dementia, & gout who reports getting up ~0300 to use the bathroom, having diarrheal incontinence and then "passing out". He denies chest pain, but admits to nausea without emesis, SOB, sweating, and light -headedness. It is unclear how long he was out, but he was unable to get off the floor for several (~4) hours per his who later found him. She and her daughter assisted him to the shower to clean him up and he again syncopized and required assistance to the floor. He denies fever, chills, open wound, B/U/F of urine, focal W/N/T, change in speech/swallow/vision, or other issues. He has taken none of his home meds since the evening of 12/27. He does not routinely take aspirin, only PRN for pain. PMedHx DM2 AFIB on dabigatran CVA L jugular/subclavian DVT when off dabigatran Parkinsonism HTN hypertriglyceridemia gout dementia BPH insomnia Ambulatory Orders Dabigatran CAP(NF) [Pradaxa CAP(NF)] 150 mg PO BID 02/21/13 Fenofibrate(NF) [Tricor(NF)] 160 mg PO DAILY WITH MEAL 12/07/17 Losartan TAB* [Cozaar TAB*] 25 mg PO DAILY 12/07/17 Mize-3 Acid Ethyl Esters [Lovaza] 2 cap PO BID 12/07/17 Digoxin TAB* [Lanoxin TAB*] 0.125 mg PO EVERY OTHER DAY 12/09/17 Digoxin TAB* [Lanoxin TAB*] 0.25 mg PO EVERY OTHER DAY 12/09/17 Aspirin/Caffeine [Krunal Back & Body Pain Ex] 3 tab PO DAILY PRN 12/28/17 Finasteride TAB* [Proscar TAB*] 5 mg PO DAILY 12/28/17 Zolpidem Tartrate [Ambien] 5 mg PO BEDTIME PRN MDD 1 12/28/17 Allergies blue dye Allergy (Verified 12/28/17 16:45) Itching niacin Allergy (Verified 12/28/17 16:45) Itching simvastatin Allergy (Verified 12/28/17 16:45) Itching PSurgHx L meniscal repair tonsillectomy SocHx: 1/2 PPD cigarettes, no alcohol or recreational drugs; lives with his ; retired machinist mate; full code status FamHx: Mother passed at 98 2nd CAD. Father passed at 89 2nd CAD. Sister has DM2. ROS: as above, otherwise reviewed and all were negative vitals: Vital Signs Temp 36.9 C 12/28/17 16:38 Pulse 73 12/28/17 20:18 Resp 16 12/28/17 20:18 BP 145/69 12/28/17 20:18 Pulse Ox 98 12/28/17 20:18 Intake & Output 12/27/17 12/28/17 12/28/17 23:59 11:59 23:59 Weight 84.368 kg Constitutional: NAD, normally developed, well-nourished chronically-ill appearing white male HEENM: atraumatic; sclera/conjunctiva: anicteric/clear; hearing: clinically intact; oropharynx: clear, mucosa tacky Neck: soft tissue: non-tender; thyroid: normal Pulmonary: clear to auscultation bilaterally, good aeration, no accessory muscle use CV: RR/RR, normal S1S2, no carotid bruit, no jugular venous distention, trace B DP/PT, no edema Abdominal: soft, non-distended, non-tender, no rebound/guarding/rigidity, normoactive bowel sounds, no hepatosplenomegaly or masses, no costovertebral angle tenderness Musculoskeletal: general: grossly intact, non-tender Integumental: moderate BLE chronic venous stasis w/o wounds to feet Psychiatric orientation: AA&O to PPS affect: calm mood: cooperative eye contact: fair content: unreliable memory: impaired responses: timely insight: fair to poor Testing: Lab Results 12/28/17 12/28/17 12/28/17 Range/Units 17:05 17:05 17:05 WBC 13.6 H (3.5-10.8) 10^3/ul RBC 4.58 (4.00-5.40) 10^6/ul Hgb 14.6 (14.0-18.0) g/dl Hct 43 (42-52) % MCV 94 (80-94) fL MCH 32 H (27-31) pg MCHC 34 (31-36) g/dl RDW 14 (10.5-15) % Plt Count 334 (150-450) 10^3/ul MPV 8.0 (7.4-10.4) um3 Neut % (Auto) 89.9 H (38-83) % Lymph % (Auto) 6.1 L (25-47) % Ponce % (Auto) 3.7 (0-7) % Eos % (Auto) 0.1 (0-6) % Baso % (Auto) 0.2 (0-2) % Absolute Neuts (auto) 12.2 H (1.5-7.7) 10^3/ul Absolute Lymphs (auto) 0.8 L (1.0-4.8) 10^3/ul Absolute Monos (auto) 0.5 (0-0.8) 10^3/ul Absolute Eos (auto) 0 (0-0.6) 10^3/ul Absolute Basos (auto) 0 (0-0.2) 10^3/ul Absolute Nucleated RBC 0 10^3/ul Nucleated RBC % 0 INR (Anticoag Therapy) (0.77-1.02) Sodium 138 (135-145) mmol/L Potassium 4.3 (3.5-5.0) mmol/L Chloride 108 (101-111) mmol/L Carbon Dioxide 22 (22-32) mmol/L Anion Gap 8 (2-11) mmol/L BUN 24 (6-24) mg/dL Creatinine 1.68 H (0.67-1.17) mg/dL Est GFR ( Amer) 48.3 (>60) Est GFR (Non-Af Amer) 39.9 (>60) BUN/Creatinine Ratio 14.3 (8-20) Glucose 161 H (70-100) mg/dL Lactic Acid (0.5-2.0) mmol/L Calcium 9.7 (8.6-10.3) mg/dL Magnesium 2.1 (1.9-2.7) mg/dL Total Bilirubin 0.60 (0.2-1.0) mg/dL AST 27 (13-39) U/L ALT 13 (7-52) U/L Alkaline Phosphatase 39 (34-104) U/L Troponin I 1.51 H* (<0.04) ng/mL Total Protein 6.8 (6.4-8.9) g/dL Albumin 3.8 (3.2-5.2) g/dL Globulin 3.0 (2-4) g/dL Albumin/Globulin Ratio 1.3 (1-3) TSH 3.36 (0.34-5.60) mcIU/mL Urine Color Paige Urine Appearance Cloudy Urine pH 5.0 (5-9) Ur Specific [place] 1.027 (1.010-1.030) Urine Protein 2+(100 mg/dl) A (Negative) Urine Ketones Negative (Negative) Urine Blood 2+ A (Negative) Urine Nitrate Negative (Negative) Urine Bilirubin Negative (Negative) Urine Urobilinogen Positive A (Negative) Ur Leukocyte Esterase 2+ A (Negative) Urine WBC (Auto) 3+(>20/hpf) A (Absent) Urine RBC (Auto) 3+(>10/hpf) A (Absent) Calcium Oxalate Crystal Present A (Absent) Urine Bacteria Absent (Absent) Hyaline Casts Present A (Absent) Urine Glucose Negative (Negative) Digoxin 1.2 (0.8-2.0) ng/ml 12/28/17 12/28/17 12/28/17 Range/Units 17:05 17:05 20:59 WBC (3.5-10.8) 10^3/ul RBC (4.00-5.40) 10^6/ul Hgb (14.0-18.0) g/dl Hct (42-52) % MCV (80-94) fL MCH (27-31) pg MCHC (31-36) g/dl RDW (10.5-15) % Plt Count (150-450) 10^3/ul MPV (7.4-10.4) um3 Neut % (Auto) (38-83) % Lymph % (Auto) (25-47) % Ponce % (Auto) (0-7) % Eos % (Auto) (0-6) % Baso % (Auto) (0-2) % Absolute Neuts (auto) (1.5-7.7) 10^3/ul Absolute Lymphs (auto) (1.0-4.8) 10^3/ul Absolute Monos (auto) (0-0.8) 10^3/ul Absolute Eos (auto) (0-0.6) 10^3/ul Absolute Basos (auto) (0-0.2) 10^3/ul Absolute Nucleated RBC 10^3/ul Nucleated RBC % INR (Anticoag Therapy) 1.22 H (0.77-1.02) Sodium (135-145) mmol/L Potassium (3.5-5.0) mmol/L Chloride (101-111) mmol/L Carbon Dioxide (22-32) mmol/L Anion Gap (2-11) mmol/L BUN (6-24) mg/dL Creatinine (0.67-1.17) mg/dL Est GFR ( Amer) (>60) Est GFR (Non-Af Amer) (>60) BUN/Creatinine Ratio (8-20) Glucose (70-100) mg/dL Lactic Acid 1.9 (0.5-2.0) mmol/L Calcium (8.6-10.3) mg/dL Magnesium (1.9-2.7) mg/dL Total Bilirubin (0.2-1.0) mg/dL AST (13-39) U/L ALT (7-52) U/L Alkaline Phosphatase (34-104) U/L Troponin I 2.35 H* (<0.04) ng/mL Total Protein (6.4-8.9) g/dL Albumin (3.2-5.2) g/dL Globulin (2-4) g/dL Albumin/Globulin Ratio (1-3) TSH (0.34-5.60) mcIU/mL Urine Color Urine Appearance Urine pH (5-9) Ur Specific [place] (1.010-1.030) Urine Protein (Negative) Urine Ketones (Negative) Urine Blood (Negative) Urine Nitrate (Negative) Urine Bilirubin (Negative) Urine Urobilinogen (Negative) Ur Leukocyte Esterase (Negative) Urine WBC (Auto) (Absent) Urine RBC (Auto) (Absent) Calcium Oxalate Crystal (Absent) Urine Bacteria (Absent) Hyaline Casts (Absent) Urine Glucose (Negative) Digoxin (0.8-2.0) ng/ml ECG, personally reviewed: sinus 1st degree AV block rate 81, old T-wave inversion V1, new T-wave inversion V2; otherwise unchanged compared to 2017 CXR, personally reviewed: no acute process CT brain WO, personally reviewed: IMPRESSION: No acute intracranial abnormality. No change from the comparison study. RECOMMENDATION: Consider further evaluation of the colloid cyst with MR if not already accomplished. XRY R hip/pelvis, personally reviewed: no bony injury noted Impression: 77M HX DM2, AFIB, CVA, HTN, HLD, gout presenting with syncope & escalating troponin concerning for ACS DIAGNOSIS & PLAN Primary syncope 2nd ACS vs tachyarrhythmia : aspirin given in ED : metoprolol IR 25mg PO BID starting now : hold dabigatran, start heparin SQ : telemetry : trend troponin : ECHO in AM : supplemental oxygen : lipid profile in AM : tobacco cessation recommended, low motivation : Lj Rodas MD cardiology consulted & will arrange evaluation in AM : supportive care Secondary DM2 : check A1c : NPO x/ meds w/ sips water after midnight : Q4H glucometry & corrective lispro AFIB : hold dabigatran as above : heparin GTT : continue digoxin : PO metoprolol IR as above HX CVA : aspirin as above HX recent L jugular/subclavian DVT when off dabigatran : hold dabigatran as above : heparin GTT Parkinsonism : not currently on medications HTN : continue losartan : metoprolol as above hypertriglyceridemia : continue fenofibrate : check lipid profile in AM gout : no acute issues dementia : no acute issues BPH : continue finasteride insomnia : hold zolpidem for now Admission Rational: inpatient for NSTEMI for without the above interventions the risk of near-term adverse outcome is unacceptably high; inappropriate for outpatient status DVTp: heparin SQ & SCDs Code Status: full HCP: Critical Care time: 60minutes with >50% spent at the bedside obtaining a history , performing the examination, advising of diagnosis & treatment options along with risks/benefits/reasoning; remainder spent discussing with ER MD, consulting cardiology via phone, reviewing labs and radiology exams & performing documentation
[2017-12-28] MEDS ORDERED: Aspirin TAB* 325 MG PO ONE (21:38)
[2017-12-28] MEDS ORDERED: Ondansetron ODT TAB* 4 MG PO PRN (22:13)
[2017-12-28] MEDS ORDERED: Melatonin 3 MG TAB PO PRN (22:13)
[2017-12-28] MEDS ORDERED: Heparin VIAL(*) 5000 UNITS/ML VIAL (FIVE THOUSAND) IV PRN (22:56)
[2017-12-28] MEDS: Insulin LISPRO* 1 UNITS UNIT SUBCUT SCH (23:27)
[2017-12-28] MEDS: Metoprolol Tartrate TAB* 25 MG PO SCH (23:28)
[2017-12-28] MEDS: NS 0.9% 1000 ML* 1,000 ML IV SCH (23:30)
[2017-12-28] MEDS: Heparin DRIP 25,000 UNITS(*) 25,000 UNITS/500 ML BAG IVPB SCH (23:58)
[2017-12-29] MEDS: Insulin LISPRO* 1 UNITS UNIT SUBCUT SCH ×6 (05:13→22:43)
[2017-12-29 06:10] LABS: ABS Basophils 0.1 10^3/ul (0-0.2); ABS Eosinophils 0.1 10^3/ul (0-0.6); ABS Lymphocytes 2.7 10^3/ul (1.0-4.8); ABS Monocytes 0.9 10^3/ul (0-0.8); ABS Nucleated RBC 0 10^3/ul; Eosinophil % 0.5 % (0-6); Hematocrit 39 % (42-52); Lymphocyte % 23.1 % (25-47); Mean Corpuscular HGB Conc 34 g/dl (31-36); Mean Corpuscular Hemoglobin 31 pg (27-31); Mean Corpuscular Volume 93 fL (80-94); Mean Platelet Volume 8.5 um3 (7.4-10.4); Nucleated Red Blood Cells % 0.1; Platelet Count 308 10^3/ul (150-450); Red Blood Count 4.15 10^6/ul (4.00-5.40); Red Cell Distribution Width 14 % (10.5-15); White Blood Count 11.9 10^3/ul (3.5-10.8)
[2017-12-29 07:04] LABS: EGFR Non-African American 56.7 (>60)
--- NOTE | 2017-12-29 07:37 | RAD ---
Indication: Chest injury. 2 views of the chest are reviewed. No mediastinal shift is noted. Heart is of normal size and configuration. Lung keene are clear. When compared to previous exam of December 09, 2017 no significant change is noted. IMPRESSION: No active cardiopulmonary disease is noted. No changes noted since prior exam. R0
--- NOTE | 2017-12-29 07:38 | RAD ---
Indication: Right hip injury. 2 views of the right hip and AP view the pelvis demonstrates no fracture. Pelvic ring is intact. Sacroiliac joints and hip joints are otherwise unremarkable. IMPRESSION: No definite fracture of the right hip is noted. R0
[2017-12-29] MEDS: Pantoprazole IV* 40 MG IV SCH (07:40)
[2017-12-29] MEDS: Losartan TAB* 25 MG PO SCH (07:40)
[2017-12-29] MEDS: Finasteride TAB* 5 MG PO SCH (07:40)
[2017-12-29] MEDS: Aspirin EC TAB* 81 MG TAB.EC PO SCH (07:40)
[2017-12-29] MEDS: FENOFIBRATE 160 MG PO SCH (07:45)
[2017-12-29] MEDS ORDERED: Perflutren Lipid Microsphere* 3 ML VIAL ONE (07:55)
[2017-12-29] MEDS: Metoprolol Tartrate TAB* 25 MG PO SCH (09:22)
--- NOTE | 2017-12-29 09:50 | ECHO ---
Patient: ADAM ROCKWELL [facility] Rec#: [id number] : 1940 Date: 12/29/2017 Age: 77y Height: 185 cm / 72.8 in Weight: 85 kg / 187.3 lbs Sex: M BSA: 2.09 Room#: 436 Admit Date#: 12/28/2017 Type: Inpatient Referring: Panda Hardy MD Reading: Bharti Monge MD Gear Machine Operator: Lanette Kelly,RDCS,RDMS CC: Angel Jiménez MD Transthoracic Echocardiogram Indication: Myocardial Infarction BP: 113/56 HR: 49 Rhythm: Bradycardia Findings History: DM, AFIB, CVA, DVT, HTN, HLD, smoker Technical Comments: The study is technically limited due to the patient's smoking history. Left Ventricle: The left ventricular chamber size is decreased. Mild concentric left ventricular hypertrophy is observed. The estimated ejection fraction is 50-55%. The endocardium is not well visualized. Abnormal left ventricular diastolic function is observed. Left Atrium: The left atrial chamber size is normal. Right Ventricle: The right ventricle is not well visualized. Right Atrium: The right atrial cavity size is normal. Aortic Valve: There is no evidence of aortic valve thickening. Systolic excursion of the aortic valve is normal. There is no evidence of aortic regurgitation. There is no evidence of aortic stenosis. Mitral Valve: The mitral valve leaflets appear normal. There is no evidence of mitral regurgitation. There is no evidence of mitral stenosis. Tricuspid Valve: The tricuspid valve leaflets are normal. There is no evidence of tricuspid valve regurgitation. Unable to estimate the right ventricular systolic pressure. Pulmonic Valve: The pulmonic valve structure is not well visualized. There is no evidence of pulmonic valve thickening. There is no evidence of pulmonic regurgitation. Pericardium: There is no significant pericardial effusion. Aorta: The ascending aorta is not well visualized. There is no dilatation of the aortic arch. The aortic root is normal in size. Pulmonary Artery: The main pulmonary artery is not well visualized. Venous: The inferior vena cava appears normal in size. There is a greater than 50% respiratory change in the inferior vena cava dimension. Contrast: Definity was used to optimize study. A total of 3 ml was used Summary: There are no significant changes when compared to the previous study done on 12/08/2017. Conclusions The left ventricular chamber size is decreased. Mild concentric left ventricular hypertrophy is observed. The estimated ejection fraction is 50-55%. The endocardium is not well visualized. Abnormal left ventricular diastolic function is observed. No sig valvular disease. Measurements Name Value Normal Range RVDdMajor (2D) 2.7 cm (2.2 - 4.4) RAd ISD 4CH 4.5 cm (3.4 - 4.9) RA (A4C)W 4 cm (2.9 - 4.6) IVSd (2D) 1.3 cm (0.6 - 1) LVPWd (2D) 1.3 cm (0.6 - 1) LVIDd (2D) 3.5 cm (3.6 - 5.4) LVIDs (2D) 2.1 cm - LV FS (2D) 39 % (25 - 45) Aortic Annulus 2.2 cm (1.4 - 2.6) Ao root diameter (2D) 3.6 cm (2.1 - 3.5) Aortic arch 2.7 cm (1.8 - 3.4) LA dimension (AP) 2D 3 cm (2.3 - 3.8) LAd ISD 4CH 5.3 cm (2.9 - 5.3) LA ISD 4CH W 4.1 cm (2.5 - 4.5) Name Value Normal Range MV E-wave Vmax 0.5 m/sec - MV deceleration time 275 msec - MV A-wave Vmax 0.6 m/sec - MV E:A ratio 0.9 ratio - LV septal e' Vmax 0.06 m/sec - LV lateral e' Vmax 0.07 m/sec - LV E:e' septal ratio 8 ratio - LV E:e' lateral ratio 7 ratio - Name Value Normal Range AV Vmax 0.9 m/sec - AV VTI 23 cm - AV peak gradient 3.2 mmHg - AV mean gradient 2 mmHg - LVOT Vmax 0.8 m/sec - LVOT VTI 20 cm - LVOT peak gradient 2.6 mmHg - LVOT mean gradient 2 mmHg - TAYLER Vmax 0.5 m/sec - Name Value Normal Range RAP 8 mmHg - IVC diameter 1.8 cm - Name Value Normal Range PV Vmax 0.6 m/sec - PV peak gradient 1.4 mmHg -
[2017-12-29] MEDS: Digoxin TAB* 0.125 MG PO SCH (17:49)
--- NOTE | 2017-12-29 18:26 | PN ---
Subjective Date of Service: 12/29/17 Interval History: Examined at the bedside, no complaints of chest pain or shortness of breath. Denies n/v/d or abd pain. Denies headache or dizziness, denies fever or chills. Family History: Unchanged from Admission Social History: Unchanged from Admission Past Medical History: Unchanged from Admission Objective Active Medications: Acetaminophen (Tylenol Tab*) 650 mg PO Q6H PRN PRN Reason: FEVER/PAIN Aspirin (Aspirin Ec Tab*) 81 mg PO DAILY [facility] Last Admin: 12/29/17 07:40 Dose: 81 mg Digoxin (Lanoxin Tab*) 0.125 mg PO EVERY OTHER DAY@1700 [facility] Digoxin (Lanoxin Tab*) 0.25 mg PO EVERY OTHER DAY@1700 [facility] Last Admin: 12/29/17 17:49 Dose: 0.25 mg Fenofibrate (Tricor(Nf)) 160 mg PO DAILY WITH MEAL [facility]; Protocol Last Admin: 12/29/17 07:45 Dose: Not Given Finasteride (Proscar Tab*) 5 mg PO DAILY [facility] Last Admin: 12/29/17 07:40 Dose: 5 mg Heparin Sodium (Porcine) (Heparin Vial(*)) 0 units IV .BOLUS PRN PRN Reason: PER HEPARIN DRIP PROTOCOL Last Admin: 12/28/17 23:53 Dose: 4,000 units Heparin Sodium/Dextrose (Heparin Drip 25,000 Units(*)) 25,000 units in 500 mls @ 0 mls/hr IVPB PER RATE [facility]; Protocol Last Admin: 12/28/17 23:58 Dose: 20 mls/hr Sodium Chloride (Ns 0.9% 1000 Ml*) 1,000 mls @ 50 mls/hr IV PER RATE [facility] Last Admin: 12/28/17 23:30 Dose: 50 mls/hr Insulin Human Lispro (Humalog*) 0 units SUBCUT Q4H [facility]; Protocol Last Admin: 12/29/17 17:32 Dose: Not Given Losartan Potassium (Cozaar Tab*) 25 mg PO DAILY [facility] Last Admin: 12/29/17 07:40 Dose: 25 mg Melatonin (Melatonin) 3 mg PO BEDTIME PRN; Protocol PRN Reason: Sleep Last Admin: 12/28/17 23:28 Dose: 3 mg Ondansetron HCl (Zofran Odt Tab*) 4 mg PO Q6H PRN PRN Reason: n/v Pantoprazole Sodium (Protonix Iv*) 40 mg IV DAILY [facility] Last Admin: 12/29/17 07:40 Dose: 40 mg Vital Signs - 8 hr 12/29/17 12/29/17 12/29/17 11:21 15:19 17:32 Temperature 97.7 F 97.6 F Pulse Rate 51 55 54 Respiratory 20 16 Rate Blood Pressure 116/55 100/44 114/49 (mmHg) O2 Sat by Pulse 100 98 Oximetry 12/29/17 17:49 Temperature Pulse Rate 54 Respiratory Rate Blood Pressure (mmHg) O2 Sat by Pulse Oximetry Oxygen Devices in Use Now: None Appearance: appears comfortable , no acute distress, alert and oriented Eyes: No Scleral Icterus Ears/Nose/Mouth/Throat: Clear Oropharnyx, Mucous Membranes Moist Neck: NL Appearance and Movements; NL JVP, Trachea Midline Respiratory: Symmetrical Chest Expansion and Respiratory Effort, Clear to Auscultation Cardiovascular: NL Sounds; No Murmurs; No JVD, No Edema Abdominal: NL Sounds; No Tenderness; No Distention Extremities: No Edema, No Clubbing, Cyanosis Skin: No Rash or Ulcers Neurological: Alert and Oriented x 3 Nutrition: Taking PO's Result Diagrams: 12/29/17 05:37 12/29/17 05:33 Additional Lab and Data: Lab Results 12/28/17 12/28/17 12/28/17 Range/Units 17:05 17:05 17:05 WBC 13.6 H (3.5-10.8) 10^3/ul RBC 4.58 (4.00-5.40) 10^6/ul Hgb 14.6 (14.0-18.0) g/dl Hct 43 (42-52) % MCV 94 (80-94) fL MCH 32 H (27-31) pg MCHC 34 (31-36) g/dl RDW 14 (10.5-15) % Plt Count 334 (150-450) 10^3/ul MPV 8.0 (7.4-10.4) um3 Neut % (Auto) 89.9 H (38-83) % Lymph % (Auto) 6.1 L (25-47) % [place] % (Auto) 3.7 (0-7) % Eos % (Auto) 0.1 (0-6) % Baso % (Auto) 0.2 (0-2) % Absolute Neuts (auto) 12.2 H (1.5-7.7) 10^3/ul Absolute Lymphs (auto) 0.8 L (1.0-4.8) 10^3/ul Absolute Monos (auto) 0.5 (0-0.8) 10^3/ul Absolute Eos (auto) 0 (0-0.6) 10^3/ul Absolute Basos (auto) 0 (0-0.2) 10^3/ul Absolute Nucleated RBC 0 10^3/ul Nucleated RBC % 0 Sodium 138 (135-145) mmol/L Potassium 4.3 (3.5-5.0) mmol/L Chloride 108 (101-111) mmol/L Carbon Dioxide 22 (22-32) mmol/L Anion Gap 8 (2-11) mmol/L BUN 24 (6-24) mg/dL Creatinine 1.68 H (0.67-1.17) mg/dL Est GFR ( Amer) 48.3 (>60) Est GFR (Non-Af Amer) 39.9 (>60) BUN/Creatinine Ratio 14.3 (8-20) Glucose 161 H (70-100) mg/dL Lactic Acid (0.5-2.0) mmol/L Calcium 9.7 (8.6-10.3) mg/dL Magnesium 2.1 (1.9-2.7) mg/dL Total Bilirubin 0.60 (0.2-1.0) mg/dL AST 27 (13-39) U/L ALT 13 (7-52) U/L Alkaline Phosphatase 39 (34-104) U/L Troponin I 1.51 H* (<0.04) ng/mL Total Protein 6.8 (6.4-8.9) g/dL Albumin 3.8 (3.2-5.2) g/dL Globulin 3.0 (2-4) g/dL Albumin/Globulin Ratio 1.3 (1-3) TSH Pending Urine Color Paige Urine Appearance Cloudy Urine pH 5.0 (5-9) Ur Specific [place] 1.027 (1.010-1.030) Urine Protein 2+(100 mg/dl) A (Negative) Urine Ketones Negative (Negative) Urine Blood 2+ A (Negative) Urine Nitrate Negative (Negative) Urine Bilirubin Negative (Negative) Urine Urobilinogen Positive A (Negative) Ur Leukocyte Esterase 2+ A (Negative) Urine WBC (Auto) 3+(>20/hpf) A (Absent) Urine RBC (Auto) 3+(>10/hpf) A (Absent) Calcium Oxalate Crystal Present A (Absent) Urine Bacteria Absent (Absent) Hyaline Casts Present A (Absent) Urine Glucose Negative (Negative) 12/28/17 Range/Units 17:05 WBC (3.5-10.8) 10^3/ul RBC (4.00-5.40) 10^6/ul Hgb (14.0-18.0) g/dl Hct (42-52) % MCV (80-94) fL MCH (27-31) pg MCHC (31-36) g/dl RDW (10.5-15) % Plt Count (150-450) 10^3/ul MPV (7.4-10.4) um3 Neut % (Auto) (38-83) % Lymph % (Auto) (25-47) % [place] % (Auto) (0-7) % Eos % (Auto) (0-6) % Baso % (Auto) (0-2) % Absolute Neuts (auto) (1.5-7.7) 10^3/ul Absolute Lymphs (auto) (1.0-4.8) 10^3/ul Absolute Monos (auto) (0-0.8) 10^3/ul Absolute Eos (auto) (0-0.6) 10^3/ul Absolute Basos (auto) (0-0.2) 10^3/ul Absolute Nucleated RBC 10^3/ul Nucleated RBC % Sodium (135-145) mmol/L Potassium (3.5-5.0) mmol/L Chloride (101-111) mmol/L Carbon Dioxide (22-32) mmol/L Anion Gap (2-11) mmol/L BUN (6-24) mg/dL Creatinine (0.67-1.17) mg/dL Est GFR ( Amer) (>60) Est GFR (Non-Af Amer) (>60) BUN/Creatinine Ratio (8-20) Glucose (70-100) mg/dL Lactic Acid 1.9 (0.5-2.0) mmol/L Calcium (8.6-10.3) mg/dL Magnesium (1.9-2.7) mg/dL Total Bilirubin (0.2-1.0) mg/dL AST (13-39) U/L ALT (7-52) U/L Alkaline Phosphatase (34-104) U/L Troponin I (<0.04) ng/mL Total Protein (6.4-8.9) g/dL Albumin (3.2-5.2) g/dL Globulin (2-4) g/dL Albumin/Globulin Ratio (1-3) TSH Urine Color Urine Appearance Urine pH (5-9) Ur Specific [place] (1.010-1.030) Urine Protein (Negative) Urine Ketones (Negative) Urine Blood (Negative) Urine Nitrate (Negative) Urine Bilirubin (Negative) Urine Urobilinogen (Negative) Ur Leukocyte Esterase (Negative) Urine WBC (Auto) (Absent) Urine RBC (Auto) (Absent) Calcium Oxalate Crystal (Absent) Urine Bacteria (Absent) Hyaline Casts (Absent) Urine Glucose (Negative) Microbiology and Other Data: Microbiology 12/28/17 17:05 Urine Culture - Preliminary Urine Staphylococcus Epidermidis Assess/Plan/Problems-Billing Assessment: - Patient Problems (1) Elevated troponin Current Visit: Yes Status: Acute Code(s): R74.8 - ABNORMAL LEVELS OF OTHER SERUM ENZYMES SNOMED Code(s): 861371648 Comment: Peaked at 2.43, trending down - started on metoprolol on admission- HR dropped to the 40's - will stop metoprolol - blood pressure in the 100-110's - suspect this is related to the metoprolol - cardiology consulted pending at this time (2) UTI (urinary tract infection) Current Visit: Yes Status: Acute Comment: Urine with Staph. epidermidis greater than 100,000- will start ceftriaxone 1 gram (3) Diabetes Current Visit: Yes Status: Acute Code(s): E11.9 - TYPE 2 DIABETES MELLITUS WITHOUT COMPLICATIONS SNOMED Code(s): 98773270 Comment: fingersticks lispro sliding scale (4) HTN (hypertension) Current Visit: Yes Status: Acute Code(s): I10 - ESSENTIAL (PRIMARY) HYPERTENSION SNOMED Code(s): 34940557 Comment: Continue losartan (5) Afib Current Visit: Yes Status: Acute Code(s): I48.91 - UNSPECIFIED ATRIAL FIBRILLATION SNOMED Code(s): 17739390 Comment: Continue digoxin - will hold pradaxa as patient is currently on heparin drip (6) History of CVA (cerebrovascular accident) Current Visit: Yes Status: Acute Code(s): Z86.73 - PRSNL HX OF TIA (TIA), AND CEREB INFRC W/O RESID DEFICITS SNOMED Code(s): 663393845 Comment: - resume aspirin when able - continue tricor (7) DVT prophylaxis Current Visit: Yes Status: Acute Code(s): BRP3305 - SNOMED Code(s): 219639888 Comment: heparin drip (8) Full code status Current Visit: Yes Status: Acute Code(s): Z78.9 - OTHER SPECIFIED HEALTH STATUS SNOMED Code(s): 930924301 Status and Disposition: inpatient
[2017-12-29] MEDS: NS 0.9% 1000 ML* 1,000 ML IV SCH (19:17)
[2017-12-29] MEDS ORDERED: cefTRIAXone(*) 1 GM in NS 0.9% 50 ML* 50 ML IVPB SCH (21:00)
--- NOTE | 2017-12-29 21:42 | CONS ---
CC: Dr. Jiménez; Hospitalist Service; Dr. Monge * CARDIOLOGY CONSULT: DATE OF CONSULT: 12/29/17 HISTORY OF PRESENT ILLNESS: I was asked by hospitalist service to do a Cardiology consult on this 77-year-old male patient, who is a poor historian, with significant comorbidities and risk factors, who presented with syncope. Apparently, the patient had hospitalization in November 2017 with SVT. The patient does have complex medical history including diabetes mellitus type 2, atrial fibrillation, he is on dabigatran; history of CVA, history of subclavian DVT, history of hypertension, dementia, hyperlipidemia, Parkinson's disease, gout disease, and SVT. He said about 3 o'clock in the morning, he woke up to go to the bathroom and he passed out. He called 911 and he was apparently hospitalized. He ruled in for non-ST elevation myocardial infarction by negative troponin; however, the patient does have longstanding history of elevated troponins. His troponin back in January 2013 was 0.11. His troponin on 12/08/17, was peaked at 0.95. His troponin at this time yesterday was 1.51 and peaked at 2.4 and it is going down. The patient never had symptoms of chest pain. Last month, he was supposed to undergo an outpatient stress test and felt the troponin probably related to his SVT. His echo last month showed EF 50% to 55%, normal wall motion. His echo today is still without any significant changes and preserved left ventricular systolic function. He gives no shortness of breath, no orthopnea, no PND, no dizziness, no history of congestive heart failure, no hematochezia, no skin rash, no tremors. He does have complex medical history as outlined above. Cardiology consult was further requested because of his syncope and also because of his positive troponin. PAST MEDICAL HISTORY: Includes history of atrial fibrillation, CVA, diabetes mellitus type 2, systemic arterial hypertension, hyperlipidemia, Parkinson's disease, and dementia. PAST SURGICAL HISTORY: Includes tonsillectomy and left meniscal repair. MEDICATIONS: His medications as an outpatient include, 1. Pradaxa 150 mg twice a day. 2. Fenofibrate 160 mg once a day. 3. Cozaar 25 mg daily. 4. Stanley-3 two p.o. daily. 5. Digoxin 0.125 mg daily. 6. Aspirin 81 mg daily. 7. Finasteride 5 mg daily. ALLERGIES: He is allergic to BLUE DYE, allergy; NIACIN, allergy; and simvastatin giving him itching. FAMILY HISTORY: No family history of premature coronary artery disease. SOCIAL HISTORY: History of smoking, currently he is still doing so half-a-pack daily. No history of alcohol or drug abuse. REVIEW OF SYSTEMS: His review of all other systems essentially is negative. PHYSICAL EXAM: He is awake, alert, and oriented. He is not in acute distress. He is oriented to place, person, and time. His vitals include his blood pressure is 111/55; his pulse is 51, he is in sinus rhythm; temperature 97.7; and his respiratory rate 18. Head and Neck Exam: Normocephalic, atraumatic head. Ears, nose, and throat essentially benign. Neck: Supple. JVP is not elevated. No carotid bruits. No masses in the neck are appreciated. Chest: Clear to auscultation. No rales, no wheeze. No added sounds are appreciated. Heart: Normal and regular. S1, S2. No added sounds. No gallops and no rubs are appreciated. Abdomen: Benign, soft. Positive bowel sounds. Extremities: No edema, no cyanosis, no clubbing. Skin exam is normal. Psych: Normal affect and mood. CORPORATE GENERAL MANAGER: No focal deficits appreciated. DIAGNOSTIC STUDIES/LAB DATA: His labs showed the following actually: His sodium is 140, potassium 4.4, chloride 110, BUN 25, creatinine 1.24. His troponin peaked at 2.43. His LFTs are normal. His LDL is 92, HDL 26. His white blood cell 11.9, hemoglobin 13, hematocrit 39, and platelets 308. His brain CT reported no acute intracranial abnormality. His chest x-ray reported to have no active cardiopulmonary disease. His EKG showed the patient to be in normal sinus rhythm, right bundle branch block, which is not new, sinus bradycardia, heart rate 44 beats per minute. IMPRESSION: The patient is a 77-year-old male patient with: 1. Syncope of unclear etiology. 2. Ruled in for non-ST elevation myocardial infarction by positive troponin. The patient never had symptoms of chest pain. 3. History of supraventricular tachycardia, atrial fibrillation. He is in sinus rhythm. He is maintained on Pradaxa. 4. Diabetes mellitus type 2. 5. Systemic arterial hypertension. 6. Borderline elevated creatinine. 7. Normal left ventricular systolic function. No significant valvular disease. 8. Possible dementia, although the patient is alert, oriented x3 on physical exam today. PLAN: Definitely coronary artery disease is an important factor here to be evaluated and given his positive troponin, syncope, although he had no symptoms of chest pain, given the troponin elevated last month, I discussed with him definite evaluation by cardiac catheterization to evaluate his coronary anatomy. Benefits, risks discussed with the patient at length and he declined. He is aware of other risks including further myocardial infarction, ventricular or cardiac arrhythmia, and sudden . He definitely made it clear that he wants conservative medical treatment. I understand he is on aspirin, beta-rachel treatment. Continue heparin. He is chest pain-free. He is hemodynamically stable. He is not in congestive heart failure. I was a little bit concerned about his resting sinus bradycardia, and probably medication, especially his beta-rachel might need to be adjusted. I understand he is allergic to STATINS, so continuing his Lovaza and fenofibrate is important at the present time. His echo is already done today, which was evaluated, which is essentially unchanged from his echo last month. Any further recommendations would be pending his clinical outcome. I answered all his concerns and questions up to his satisfaction. TIME SPENT: More than half of at least 60 to 65 plus minutes was in face-to- face education, counseling mode, answering all his concerns and questions, making further recommendations. [id number]/CPS #: [id number] [facility]
[2017-12-30] MEDS: Insulin LISPRO* 1 UNITS UNIT SUBCUT SCH ×5 (03:09→16:27)
[2017-12-30 05:49] LABS: ABS Basophils 0.1 10^3/ul (0-0.2); ABS Eosinophils 0.2 10^3/ul (0-0.6); ABS Lymphocytes 2.5 10^3/ul (1.0-4.8); ABS Monocytes 0.6 10^3/ul (0-0.8); ABS Neutrophils 5.4 10^3/ul (1.5-7.7); ABS Nucleated RBC 0 10^3/ul; Eosinophil % 1.8 % (0-6); Hematocrit 36 % (42-52); Hemoglobin 12.1 g/dl (14.0-18.0); Lymphocyte % 28.5 % (25-47); Mean Corpuscular HGB Conc 34 g/dl (31-36); Mean Corpuscular Hemoglobin 32 pg (27-31); Mean Corpuscular Volume 94 fL (80-94); Nucleated Red Blood Cells % 0.1; Platelet Count 262 10^3/ul (150-450); Red Blood Count 3.78 10^6/ul (4.00-5.40); Red Cell Distribution Width 14 % (10.5-15); White Blood Count 8.8 10^3/ul (3.5-10.8)
[2017-12-30 07:09] LABS: EGFR Non-African American 64.4 (>60)
[2017-12-30] MEDS: Aspirin EC TAB* 81 MG TAB.EC PO SCH (08:23)
[2017-12-30] MEDS: FENOFIBRATE 160 MG PO SCH (08:23)
[2017-12-30] MEDS: Pantoprazole IV* 40 MG IV SCH (08:23)
[2017-12-30] MEDS: Losartan TAB* 25 MG PO SCH (08:23)
[2017-12-30] MEDS: Finasteride TAB* 5 MG PO SCH (08:23)
[2017-12-30] MEDS ORDERED: Metoprolol Tartrate TAB* 25 MG PO SCH (09:00)
[2017-12-30] MEDS: Heparin DRIP 25,000 UNITS(*) 25,000 UNITS/500 ML BAG IVPB SCH (09:36)
--- NOTE | 2017-12-30 11:24 | PN ---
Subjective Date of Service: 12/30/17 Interval History: Mr. Shoemaker offers no complaints today he states he feels well enough to "go home" . Per primary nurse he has not been OOB since admission. Pt denies CP/SOB. No further syncopal or presyncope episodes. Denies dizziness. Reports 1 episode of diarrhea the day of admission and has none since. Denies abdominal pain/flank pain. No fever or chills. Family History: Unchanged from Admission Social History: Unchanged from Admission Past Medical History: Unchanged from Admission Objective Active Medications: Acetaminophen (Tylenol Tab*) 650 mg PO Q6H PRN PRN Reason: FEVER/PAIN Aspirin (Aspirin Ec Tab*) 81 mg PO DAILY [facility] Last Admin: 12/30/17 08:23 Dose: 81 mg Digoxin (Lanoxin Tab*) 0.125 mg PO EVERY OTHER DAY@1700 [facility] Digoxin (Lanoxin Tab*) 0.25 mg PO EVERY OTHER DAY@1700 [facility] Last Admin: 12/29/17 17:49 Dose: 0.25 mg Fenofibrate (Tricor(Nf)) 160 mg PO DAILY WITH MEAL [facility]; Protocol Last Admin: 12/30/17 08:23 Dose: Not Given Finasteride (Proscar Tab*) 5 mg PO DAILY [facility] Last Admin: 12/30/17 08:23 Dose: 5 mg Heparin Sodium (Porcine) (Heparin Vial(*)) 0 units IV .BOLUS PRN PRN Reason: PER HEPARIN DRIP PROTOCOL Last Admin: 12/28/17 23:53 Dose: 4,000 units Heparin Sodium/Dextrose (Heparin Drip 25,000 Units(*)) 25,000 units in 500 mls @ 0 mls/hr IVPB PER RATE [facility]; Protocol Last Admin: 12/30/17 09:36 Dose: 6 mls/hr Sodium Chloride (Ns 0.9% 1000 Ml*) 1,000 mls @ 50 mls/hr IV PER RATE [facility] Last Admin: 12/29/17 19:17 Dose: 50 mls/hr Ceftriaxone Sodium 1 gm/ (Sodium Chloride) 50 mls @ 200 mls/hr IVPB Q24H [facility] Last Admin: 12/29/17 21:02 Dose: 200 mls/hr Insulin Human Lispro (Humalog*) 0 units SUBCUT Q4H [facility]; Protocol Last Admin: 12/30/17 07:30 Dose: Not Given Losartan Potassium (Cozaar Tab*) 25 mg PO DAILY [facility] Last Admin: 12/30/17 08:23 Dose: 25 mg Melatonin (Melatonin) 3 mg PO BEDTIME PRN; Protocol PRN Reason: Sleep Last Admin: 12/28/17 23:28 Dose: 3 mg Ondansetron HCl (Zofran Odt Tab*) 4 mg PO Q6H PRN PRN Reason: n/v Pantoprazole Sodium (Protonix Iv*) 40 mg IV DAILY [facility] Last Admin: 12/30/17 08:23 Dose: 40 mg Vital Signs - 8 hr 12/30/17 12/30/17 12/30/17 04:05 04:07 08:00 Temperature 98.5 F 98.5 F Pulse Rate 50 50 Respiratory 20 20 20 Rate Blood Pressure 134/68 134/68 (mmHg) O2 Sat by Pulse 98 98 Oximetry 12/30/17 12/30/17 08:26 08:31 Temperature 97.8 F 97.9 F Pulse Rate 54 55 Respiratory 16 20 Rate Blood Pressure 131/46 118/58 (mmHg) O2 Sat by Pulse 99 97 Oximetry Oxygen Devices in Use Now: None Appearance: 77 yo male laying in bed in NAD, A+O x3 Eyes: No Scleral Icterus, PERRLA Ears/Nose/Mouth/Throat: NL Teeth, Lips, Gums, Mucous Membranes Moist Neck: NL Appearance and Movements; NL JVP Respiratory: Symmetrical Chest Expansion and Respiratory Effort, Clear to Auscultation Cardiovascular: NL Sounds; No Murmurs; No JVD, RRR, No Edema Abdominal: NL Sounds; No Tenderness; No Distention Extremities: No Edema, No Clubbing, Cyanosis Skin: No Rash or Ulcers, No Nodules or Sclerosis Neurological: Alert and Oriented x 3, NL Sensation Lines/Tubes/Other Access: Clean, Dry and Intact Peripheral IV Nutrition: Taking PO's Result Diagrams: 12/30/17 05:30 12/30/17 05:30 Additional Lab and Data: Lab Results 12/28/17 12/28/17 12/28/17 Range/Units 17:05 17:05 17:05 WBC 13.6 H (3.5-10.8) 10^3/ul RBC 4.58 (4.00-5.40) 10^6/ul Hgb 14.6 (14.0-18.0) g/dl Hct 43 (42-52) % MCV 94 (80-94) fL MCH 32 H (27-31) pg MCHC 34 (31-36) g/dl RDW 14 (10.5-15) % Plt Count 334 (150-450) 10^3/ul MPV 8.0 (7.4-10.4) um3 Neut % (Auto) 89.9 H (38-83) % Lymph % (Auto) 6.1 L (25-47) % [place] % (Auto) 3.7 (0-7) % Eos % (Auto) 0.1 (0-6) % Baso % (Auto) 0.2 (0-2) % Absolute Neuts (auto) 12.2 H (1.5-7.7) 10^3/ul Absolute Lymphs (auto) 0.8 L (1.0-4.8) 10^3/ul Absolute Monos (auto) 0.5 (0-0.8) 10^3/ul Absolute Eos (auto) 0 (0-0.6) 10^3/ul Absolute Basos (auto) 0 (0-0.2) 10^3/ul Absolute Nucleated RBC 0 10^3/ul Nucleated RBC % 0 Sodium 138 (135-145) mmol/L Potassium 4.3 (3.5-5.0) mmol/L Chloride 108 (101-111) mmol/L Carbon Dioxide 22 (22-32) mmol/L Anion Gap 8 (2-11) mmol/L BUN 24 (6-24) mg/dL Creatinine 1.68 H (0.67-1.17) mg/dL Est GFR ( Amer) 48.3 (>60) Est GFR (Non-Af Amer) 39.9 (>60) BUN/Creatinine Ratio 14.3 (8-20) Glucose 161 H (70-100) mg/dL Lactic Acid (0.5-2.0) mmol/L Calcium 9.7 (8.6-10.3) mg/dL Magnesium 2.1 (1.9-2.7) mg/dL Total Bilirubin 0.60 (0.2-1.0) mg/dL AST 27 (13-39) U/L ALT 13 (7-52) U/L Alkaline Phosphatase 39 (34-104) U/L Troponin I 1.51 H* (<0.04) ng/mL Total Protein 6.8 (6.4-8.9) g/dL Albumin 3.8 (3.2-5.2) g/dL Globulin 3.0 (2-4) g/dL Albumin/Globulin Ratio 1.3 (1-3) TSH Pending Urine Color Paige Urine Appearance Cloudy Urine pH 5.0 (5-9) Ur Specific [place] 1.027 (1.010-1.030) Urine Protein 2+(100 mg/dl) A (Negative) Urine Ketones Negative (Negative) Urine Blood 2+ A (Negative) Urine Nitrate Negative (Negative) Urine Bilirubin Negative (Negative) Urine Urobilinogen Positive A (Negative) Ur Leukocyte Esterase 2+ A (Negative) Urine WBC (Auto) 3+(>20/hpf) A (Absent) Urine RBC (Auto) 3+(>10/hpf) A (Absent) Calcium Oxalate Crystal Present A (Absent) Urine Bacteria Absent (Absent) Hyaline Casts Present A (Absent) Urine Glucose Negative (Negative) 12/28/17 Range/Units 17:05 WBC (3.5-10.8) 10^3/ul RBC (4.00-5.40) 10^6/ul Hgb (14.0-18.0) g/dl Hct (42-52) % MCV (80-94) fL MCH (27-31) pg MCHC (31-36) g/dl RDW (10.5-15) % Plt Count (150-450) 10^3/ul MPV (7.4-10.4) um3 Neut % (Auto) (38-83) % Lymph % (Auto) (25-47) % [place] % (Auto) (0-7) % Eos % (Auto) (0-6) % Baso % (Auto) (0-2) % Absolute Neuts (auto) (1.5-7.7) 10^3/ul Absolute Lymphs (auto) (1.0-4.8) 10^3/ul Absolute Monos (auto) (0-0.8) 10^3/ul Absolute Eos (auto) (0-0.6) 10^3/ul Absolute Basos (auto) (0-0.2) 10^3/ul Absolute Nucleated RBC 10^3/ul Nucleated RBC % Sodium (135-145) mmol/L Potassium (3.5-5.0) mmol/L Chloride (101-111) mmol/L Carbon Dioxide (22-32) mmol/L Anion Gap (2-11) mmol/L BUN (6-24) mg/dL Creatinine (0.67-1.17) mg/dL Est GFR ( Amer) (>60) Est GFR (Non-Af Amer) (>60) BUN/Creatinine Ratio (8-20) Glucose (70-100) mg/dL Lactic Acid 1.9 (0.5-2.0) mmol/L Calcium (8.6-10.3) mg/dL Magnesium (1.9-2.7) mg/dL Total Bilirubin (0.2-1.0) mg/dL AST (13-39) U/L ALT (7-52) U/L Alkaline Phosphatase (34-104) U/L Troponin I (<0.04) ng/mL Total Protein (6.4-8.9) g/dL Albumin (3.2-5.2) g/dL Globulin (2-4) g/dL Albumin/Globulin Ratio (1-3) TSH Urine Color Urine Appearance Urine pH (5-9) Ur Specific [place] (1.010-1.030) Urine Protein (Negative) Urine Ketones (Negative) Urine Blood (Negative) Urine Nitrate (Negative) Urine Bilirubin (Negative) Urine Urobilinogen (Negative) Ur Leukocyte Esterase (Negative) Urine WBC (Auto) (Absent) Urine RBC (Auto) (Absent) Calcium Oxalate Crystal (Absent) Urine Bacteria (Absent) Hyaline Casts (Absent) Urine Glucose (Negative) Microbiology and Other Data: Microbiology 12/28/17 17:05 Urine Culture - Preliminary Urine Staphylococcus Epidermidis Assess/Plan/Problems-Billing Assessment: - Patient Problems (1) Syncope Comment: - unclear etiology - possible vasovagal or orthostatic in the setting of diarrhea. Orthostatic VS negative today. No further loose stool. Recently dx with LUE DVT - could possibly have a PE in the setting of elevated trops? TTE wnl showing no corpulmonale, pt is not SOB or hypoxic. Management will not change at this point and will continue Pradaxa. Discussed with both cardiology and attending Dr. Ingram who agree with the plan with no further recommendations Hold flomax - (2) Elevated troponin Comment: - NSTEMI - Peaked at 2.43, trending down. No CP. - Started on metoprolol on admission - HR dropped to the 40's and metoprolol DC' d - appreciate cardiology consulted - Recommended cardiac cath and patient is refusing stated he only wants medical management only. Discussed with station mechanic helper. DC heparin gtt, plan to restart Pradaxa (3) Afib Comment: Continue digoxin - will restart pradaxa (4) Diabetes Comment: fingersticks AC lispro sliding scale (5) UTI (urinary tract infection) Comment: Urine with Staph. epidermidis greater than 100,000- discussed with ID as a side consult who states most likely colonization from doe. Ok to DC abx (6) Urinary retention Comment: recent doe catheter placement - he had an episode of hematuria and was taken off his pradaxa - he was recently dx with LUE DVT and Pradaxa was restarted - no further hematuria. Continue doe. He is being followed by urology as an outpt. continue finesteride and hold flomax in the setting of syncope DC flomax in the setting of syncope (7) HTN (hypertension) Comment: Continue losartan (8) History of CVA (cerebrovascular accident) Comment: - continue tricor - Pradaxa (9) DVT prophylaxis Comment: DC heparin drip restart Pradaxa (10) Full code status Status and Disposition: inpatient. possible DC home today depending on his ambulatory status - he has not been OOB in 2 days. If not anticipated DC home in tomorrow
[2017-12-30] MEDS: Digoxin TAB* 0.125 MG PO SCH (16:36)
[2017-12-30] MEDS ORDERED: Mouth Piece, Nicotine* 1 EACH CARTRIDGE INH PRN ×2 (16:37)
[2017-12-30] MEDS ORDERED: Nicotine Inhaler* 10 MG AMP INH PRN (16:37)
[2017-12-30] MEDS: Nicotine PATCH 21 MG/24 HR* PATCH TRANSDERM SCH (16:46)
[2017-12-30] MEDS: CMC:Dabigatran CAP(NF) 150 MG CAP PO SCH (20:47)
[2017-12-30] MEDS: Nicotine Patch Removal NOTE PATCH OFF SCH (20:49)
[2017-12-30] MEDS ORDERED: Nicotine Patch Removal NOTE FOLLOW UP SCH (21:00)
[2017-12-31 07:24] LABS: ABS Basophils 0.1 10^3/ul (0-0.2); ABS Eosinophils 0.3 10^3/ul (0-0.6); ABS Lymphocytes 2.7 10^3/ul (1.0-4.8); ABS Monocytes 0.6 10^3/ul (0-0.8); ABS Neutrophils 3.1 10^3/ul (1.5-7.7); ABS Nucleated RBC 0 10^3/ul; Hematocrit 34 % (42-52); Hemoglobin 11.8 g/dl (14.0-18.0); Lymphocyte % 40.2 % (25-47); Mean Corpuscular HGB Conc 35 g/dl (31-36); Mean Corpuscular Hemoglobin 32 pg (27-31); Mean Corpuscular Volume 93 fL (80-94); Mean Platelet Volume 8.3 um3 (7.4-10.4); Nucleated Red Blood Cells % 0; Platelet Count 255 10^3/ul (150-450); Red Blood Count 3.67 10^6/ul (4.00-5.40); Red Cell Distribution Width 14 % (10.5-15); White Blood Count 6.7 10^3/ul (3.5-10.8)
[2017-12-31 07:39] LABS: EGFR Non-African American 65.8 (>60)
[2017-12-31] MEDS: FENOFIBRATE 160 MG PO SCH (08:04)
[2017-12-31] MEDS: Insulin LISPRO* 1 UNITS UNIT SUBCUT SCH ×3 (08:04→17:43)
[2017-12-31] MEDS: Finasteride TAB* 5 MG PO SCH (08:04)
[2017-12-31] MEDS: CMC:Dabigatran CAP(NF) 150 MG CAP PO SCH ×2 (08:04→20:21)
[2017-12-31] MEDS: Losartan TAB* 25 MG PO SCH (08:04)
[2017-12-31] MEDS: Acetaminophen TAB* 325 MG PO PRN ×2 (08:04→18:45)
[2017-12-31] MEDS: Pantoprazole IV* 40 MG IV SCH (08:04)
[2017-12-31] MEDS: Nicotine PATCH 21 MG/24 HR* PATCH TRANSDERM SCH (08:04)
--- NOTE | 2017-12-31 16:39 | PN ---
Subjective Date of Service: 12/31/17 Interval History: Patient refused to get OOB today for meals and refused to work with PT. His exwife plans to move in with him and helped take care of him. he agrees to this plan. he reports he has 4 steps to get into the house and 20 steps to his bedroom. Plan for hospital bed d/t weakness. The patient reports VILLATORO today and feels "fatigued". He denies CP/SOB. No fevers or chills. Family History: Unchanged from Admission Social History: Unchanged from Admission Past Medical History: Unchanged from Admission Objective Active Medications: Acetaminophen (Tylenol Tab*) 650 mg PO Q6H PRN PRN Reason: FEVER/PAIN Last Admin: 12/31/17 08:04 Dose: 650 mg Dabigatran (Pradaxa Cap(Nf)) 150 mg PO BID [facility] Last Admin: 12/31/17 08:04 Dose: 150 mg Device (Nicotine Mouth Piece*) 1 each INH .USE WITH NICOTROL PRN PRN Reason: CRAVING Digoxin (Lanoxin Tab*) 0.125 mg PO EVERY OTHER DAY@1700 [facility] Last Admin: 12/30/17 16:36 Dose: Not Given Digoxin (Lanoxin Tab*) 0.25 mg PO EVERY OTHER DAY@1700 [facility] Last Admin: 12/29/17 17:49 Dose: 0.25 mg Fenofibrate (Tricor(Nf)) 160 mg PO DAILY WITH MEAL [facility]; Protocol Last Admin: 12/31/17 08:04 Dose: 160 mg Finasteride (Proscar Tab*) 5 mg PO DAILY [facility] Last Admin: 12/31/17 08:04 Dose: 5 mg Insulin Human Lispro (Humalog*) 0 units SUBCUT AC [facility]; Protocol Last Admin: 12/31/17 11:57 Dose: Not Given Losartan Potassium (Cozaar Tab*) 25 mg PO DAILY [facility] Last Admin: 12/31/17 08:04 Dose: 25 mg Melatonin (Melatonin) 3 mg PO BEDTIME PRN; Protocol PRN Reason: Sleep Last Admin: 12/28/17 23:28 Dose: 3 mg Nicotine (Nicotine Patch 21 Mg/24 Hr*) 1 patch TRANSDERM DAILY [facility] Last Admin: 12/31/17 08:04 Dose: 1 patch Nicotine (Nicotine Inhaler*) 10 mg INH Q2H PRN PRN Reason: CRAVING Ondansetron HCl (Zofran Odt Tab*) 4 mg PO Q6H PRN PRN Reason: n/v Pantoprazole Sodium (Protonix Iv*) 40 mg IV DAILY [facility] Last Admin: 12/31/17 08:04 Dose: 40 mg Pharmacy Profile Note (Nicotine Patch Removal Note*) 1 note PATCH OFF 2100 [facility] Last Admin: 12/30/17 20:49 Dose: 1 note Vital Signs - 8 hr 12/31/17 12/31/17 11:15 15:17 Temperature 97.6 F 97.4 F Pulse Rate 73 58 Respiratory 16 16 Rate Blood Pressure 107/49 141/51 (mmHg) O2 Sat by Pulse 99 100 Oximetry Oxygen Devices in Use Now: None Appearance: 77 yo frail appearing male laying in bed in NAD, A+O x3 Eyes: No Scleral Icterus, PERRLA Ears/Nose/Mouth/Throat: NL Teeth, Lips, Gums, Mucous Membranes Moist Neck: NL Appearance and Movements; NL JVP Respiratory: Symmetrical Chest Expansion and Respiratory Effort, Clear to Auscultation Cardiovascular: NL Sounds; No Murmurs; No JVD, RRR, No Edema Abdominal: NL Sounds; No Tenderness; No Distention Extremities: No Edema, No Clubbing, Cyanosis Skin: No Rash or Ulcers, No Nodules or Sclerosis Neurological: Alert and Oriented x 3, NL Sensation, NL Muscle Strength and Tone Lines/Tubes/Other Access: Clean, Dry and Intact Peripheral IV Nutrition: Taking PO's Result Diagrams: 12/31/17 06:23 12/31/17 06:23 Additional Lab and Data: Lab Results 12/28/17 12/28/17 12/28/17 Range/Units 17:05 17:05 17:05 WBC 13.6 H (3.5-10.8) 10^3/ul RBC 4.58 (4.00-5.40) 10^6/ul Hgb 14.6 (14.0-18.0) g/dl Hct 43 (42-52) % MCV 94 (80-94) fL MCH 32 H (27-31) pg MCHC 34 (31-36) g/dl RDW 14 (10.5-15) % Plt Count 334 (150-450) 10^3/ul MPV 8.0 (7.4-10.4) um3 Neut % (Auto) 89.9 H (38-83) % Lymph % (Auto) 6.1 L (25-47) % [place] % (Auto) 3.7 (0-7) % Eos % (Auto) 0.1 (0-6) % Baso % (Auto) 0.2 (0-2) % Absolute Neuts (auto) 12.2 H (1.5-7.7) 10^3/ul Absolute Lymphs (auto) 0.8 L (1.0-4.8) 10^3/ul Absolute Monos (auto) 0.5 (0-0.8) 10^3/ul Absolute Eos (auto) 0 (0-0.6) 10^3/ul Absolute Basos (auto) 0 (0-0.2) 10^3/ul Absolute Nucleated RBC 0 10^3/ul Nucleated RBC % 0 Sodium 138 (135-145) mmol/L Potassium 4.3 (3.5-5.0) mmol/L Chloride 108 (101-111) mmol/L Carbon Dioxide 22 (22-32) mmol/L Anion Gap 8 (2-11) mmol/L BUN 24 (6-24) mg/dL Creatinine 1.68 H (0.67-1.17) mg/dL Est GFR ( Amer) 48.3 (>60) Est GFR (Non-Af Amer) 39.9 (>60) BUN/Creatinine Ratio 14.3 (8-20) Glucose 161 H (70-100) mg/dL Lactic Acid (0.5-2.0) mmol/L Calcium 9.7 (8.6-10.3) mg/dL Magnesium 2.1 (1.9-2.7) mg/dL Total Bilirubin 0.60 (0.2-1.0) mg/dL AST 27 (13-39) U/L ALT 13 (7-52) U/L Alkaline Phosphatase 39 (34-104) U/L Troponin I 1.51 H* (<0.04) ng/mL Total Protein 6.8 (6.4-8.9) g/dL Albumin 3.8 (3.2-5.2) g/dL Globulin 3.0 (2-4) g/dL Albumin/Globulin Ratio 1.3 (1-3) TSH Pending Urine Color Paige Urine Appearance Cloudy Urine pH 5.0 (5-9) Ur Specific [place] 1.027 (1.010-1.030) Urine Protein 2+(100 mg/dl) A (Negative) Urine Ketones Negative (Negative) Urine Blood 2+ A (Negative) Urine Nitrate Negative (Negative) Urine Bilirubin Negative (Negative) Urine Urobilinogen Positive A (Negative) Ur Leukocyte Esterase 2+ A (Negative) Urine WBC (Auto) 3+(>20/hpf) A (Absent) Urine RBC (Auto) 3+(>10/hpf) A (Absent) Calcium Oxalate Crystal Present A (Absent) Urine Bacteria Absent (Absent) Hyaline Casts Present A (Absent) Urine Glucose Negative (Negative) 12/28/17 Range/Units 17:05 WBC (3.5-10.8) 10^3/ul RBC (4.00-5.40) 10^6/ul Hgb (14.0-18.0) g/dl Hct (42-52) % MCV (80-94) fL MCH (27-31) pg MCHC (31-36) g/dl RDW (10.5-15) % Plt Count (150-450) 10^3/ul MPV (7.4-10.4) um3 Neut % (Auto) (38-83) % Lymph % (Auto) (25-47) % [place] % (Auto) (0-7) % Eos % (Auto) (0-6) % Baso % (Auto) (0-2) % Absolute Neuts (auto) (1.5-7.7) 10^3/ul Absolute Lymphs (auto) (1.0-4.8) 10^3/ul Absolute Monos (auto) (0-0.8) 10^3/ul Absolute Eos (auto) (0-0.6) 10^3/ul Absolute Basos (auto) (0-0.2) 10^3/ul Absolute Nucleated RBC 10^3/ul Nucleated RBC % Sodium (135-145) mmol/L Potassium (3.5-5.0) mmol/L Chloride (101-111) mmol/L Carbon Dioxide (22-32) mmol/L Anion Gap (2-11) mmol/L BUN (6-24) mg/dL Creatinine (0.67-1.17) mg/dL Est GFR ( Amer) (>60) Est GFR (Non-Af Amer) (>60) BUN/Creatinine Ratio (8-20) Glucose (70-100) mg/dL Lactic Acid 1.9 (0.5-2.0) mmol/L Calcium (8.6-10.3) mg/dL Magnesium (1.9-2.7) mg/dL Total Bilirubin (0.2-1.0) mg/dL AST (13-39) U/L ALT (7-52) U/L Alkaline Phosphatase (34-104) U/L Troponin I (<0.04) ng/mL Total Protein (6.4-8.9) g/dL Albumin (3.2-5.2) g/dL Globulin (2-4) g/dL Albumin/Globulin Ratio (1-3) TSH Urine Color Urine Appearance Urine pH (5-9) Ur Specific [place] (1.010-1.030) Urine Protein (Negative) Urine Ketones (Negative) Urine Blood (Negative) Urine Nitrate (Negative) Urine Bilirubin (Negative) Urine Urobilinogen (Negative) Ur Leukocyte Esterase (Negative) Urine WBC (Auto) (Absent) Urine RBC (Auto) (Absent) Calcium Oxalate Crystal (Absent) Urine Bacteria (Absent) Hyaline Casts (Absent) Urine Glucose (Negative) Microbiology and Other Data: Microbiology 12/28/17 17:05 Urine Culture - Preliminary Urine Staphylococcus Epidermidis Assess/Plan/Problems-Billing Assessment: Mr Shoemaker is a 77YO male poor historian HX DM2, AFIB, CVA, DVT, Parkinsonism, HTN, hypertriglyceridemia, dementia, & gout who reports getting up in the middle of the night to use the bathroom, having diarrheal incontinence and then "passing out", found to have NSTEMI - Patient Problems (1) Syncope Comment: - unclear etiology - possible vasovagal or orthostatic in the setting of diarrhea. Orthostatic VS negative. No further loose stool. -Recently dx with LUE DVT - could possibly have a PE in the setting of elevated trops? TTE wnl showing no corpulmonale, pt is not SOB or hypoxic. Management will not change at this point and will continue Pradaxa. Discussed with both cardiology and attending Dr. Ingram who agree with the plan with no further recommendations Hold flomax in the setting of syncope - (2) Elevated troponin Comment: - NSTEMI - Peaked at 2.43, trending down. No CP. - Started on metoprolol on admission - HR dropped to the 40's and metoprolol DC' d - appreciate cardiology consulted - Recommended cardiac cath and patient is refusing stating he only wants medical management only. Discussed with imaging technologist. DC heparin gtt 12/30, Pradaxa restarted continue Tricor (3) Afib Comment: - Continue digoxin -pradaxa (4) Diabetes Comment: fingersticks AC lispro sliding scale (5) UTI (urinary tract infection) Comment: abnormal urinalysis in harsh setting of doe catheter Urine with Staph. epidermidis greater than 100,000- discussed with ID as a side consult who states most likely colonization from doe. Ok to DC abx and wait and watch (6) Urinary retention Comment: recent doe catheter placement - he had an episode of hematuria and was taken off his pradaxa - then was recently dx with LUE DVT and Pradaxa was restarted - no further hematuria. Continue doe. He is being followed by urology as an outpt. continue finesteride and hold flomax in the setting of syncope (7) HTN (hypertension) Comment: Continue losartan (8) History of CVA (cerebrovascular accident) Comment: - continue tricor - Pradaxa (9) DVT prophylaxis Comment: Pradaxa (10) Full code status Status and Disposition: inpatient. If stable DC home tomorrow. Pt refused PT today. Would like PT to eval safety of patient returning to home. Hospital bed and wheelchair ordered. Case management following
[2017-12-31] MEDS: Digoxin TAB* 0.125 MG PO SCH (18:05)
[2017-12-31] MEDS: Nicotine Patch Removal NOTE PATCH OFF SCH (20:23)
[2018-01-01] MEDS: Insulin LISPRO* 1 UNITS UNIT SUBCUT SCH ×3 (08:33→16:45)
[2018-01-01] MEDS: Losartan TAB* 25 MG PO SCH (08:49)
[2018-01-01] MEDS: Finasteride TAB* 5 MG PO SCH (08:49)
[2018-01-01] MEDS: CMC:Dabigatran CAP(NF) 150 MG CAP PO SCH ×2 (08:50→20:28)
[2018-01-01] MEDS: Nicotine PATCH 21 MG/24 HR* PATCH TRANSDERM SCH (08:50)
[2018-01-01] MEDS: FENOFIBRATE 160 MG PO SCH (08:50)
--- NOTE | 2018-01-01 14:20 | PN ---
Subjective Date of Service: 01/01/18 Interval History: Patient has no complaints today. Patient has been walking and still feels moderately unstable. Patient states he has been improving. Patient complains of intermittent presyncope as well as just a feeling of unsteadiness. . Patient complains of no chest pain, shortness of breath, N/V, F/C, abdominal pain, palpitations, or other pain. Patient states that he wakes up almost every day very sweaty and that he has lost over 100 pounds in the past year. However, our records show only a weight loss of 30 pounds in 5 years. Patient is unaware of any workup that has been done for occult malignancy or inflammatory condition. Patient states that his primary care provider attributed this to his heart and his Parkinson's. Family History: Unchanged from Admission Social History: Unchanged from Admission Past Medical History: Unchanged from Admission Objective Active Medications: Acetaminophen (Tylenol Tab*) 650 mg PO Q6H PRN PRN Reason: FEVER/PAIN Last Admin: 12/31/17 18:45 Dose: 650 mg Dabigatran (Pradaxa Cap(Nf)) 150 mg PO BID [facility] Last Admin: 01/01/18 08:50 Dose: 150 mg Device (Nicotine Mouth Piece*) 1 each INH .USE WITH NICOTROL PRN PRN Reason: CRAVING Digoxin (Lanoxin Tab*) 0.125 mg PO EVERY OTHER DAY@1700 [facility] Last Admin: 12/30/17 16:36 Dose: Not Given Digoxin (Lanoxin Tab*) 0.25 mg PO EVERY OTHER DAY@1700 [facility] Last Admin: 12/31/17 18:05 Dose: 0.25 mg Fenofibrate (Tricor(Nf)) 160 mg PO DAILY WITH MEAL [facility]; Protocol Last Admin: 01/01/18 08:50 Dose: 160 mg Finasteride (Proscar Tab*) 5 mg PO DAILY [facility] Last Admin: 01/01/18 08:49 Dose: 5 mg Insulin Human Lispro (Humalog*) 0 units SUBCUT AC [facility]; Protocol Last Admin: 01/01/18 12:08 Dose: Not Given Losartan Potassium (Cozaar Tab*) 25 mg PO DAILY [facility] Last Admin: 01/01/18 08:49 Dose: 25 mg Melatonin (Melatonin) 3 mg PO BEDTIME PRN; Protocol PRN Reason: Sleep Last Admin: 12/28/17 23:28 Dose: 3 mg Nicotine (Nicotine Patch 21 Mg/24 Hr*) 1 patch TRANSDERM DAILY [facility] Last Admin: 01/01/18 08:50 Dose: 1 patch Nicotine (Nicotine Inhaler*) 10 mg INH Q2H PRN PRN Reason: CRAVING Omeprazole (Prilosec Cap*) 20 mg PO 0600 [facility] Ondansetron HCl (Zofran Odt Tab*) 4 mg PO Q6H PRN PRN Reason: n/v Pharmacy Profile Note (Nicotine Patch Removal Note*) 1 note PATCH OFF 2100 [facility] Last Admin: 12/31/17 20:23 Dose: 1 note Tamsulosin HCl (Flomax Cap*) 0.4 mg PO DAILY [facility] Vital Signs - 8 hr 01/01/18 01/01/18 01/01/18 07:47 08:00 10:58 Temperature 98.2 F 97.6 F Pulse Rate 62 64 Respiratory 16 16 16 Rate Blood Pressure 122/57 125/54 (mmHg) O2 Sat by Pulse 99 100 Oximetry Oxygen Devices in Use Now: None Appearance: Patient is a 77yo male who appears stated age and is sitting in the bed in [facility]. Eyes: No Scleral Icterus, PERRLA Ears/Nose/Mouth/Throat: NL Teeth, Lips, Gums, Clear Oropharnyx, Mucous Membranes Moist Neck: NL Appearance and Movements; NL JVP, Trachea Midline Respiratory: Symmetrical Chest Expansion and Respiratory Effort, Clear to Auscultation Cardiovascular: NL Sounds; No Murmurs; No JVD, RRR, No Edema Abdominal: NL Sounds; No Tenderness; No Distention, No Hepatosplenomegaly Lymphatic: No Cervical Adenopathy Extremities: No Edema, No Clubbing, Cyanosis Skin: No Rash or Ulcers, No Nodules or Sclerosis Neurological: Alert and Oriented x 3, NL Sensation, - - Slight tremor. Result Diagrams: 12/31/17 06:23 12/31/17 06:23 Additional Lab and Data: Lab Results Microbiology and Other Data: Microbiology 12/28/17 17:05 Urine Culture - Preliminary Urine Staphylococcus Epidermidis Assess/Plan/Problems-Billing Assessment: Mr Shoemaker is a 77YO male poor historian HX DM2, AFIB, CVA, DVT, Parkinsonism, HTN, hypertriglyceridemia, dementia, & gout who reports getting up in the middle of the night to use the bathroom, having diarrheal incontinence and then "passing out", found to have NSTEMI. Patient elected for medical management and will need JONNATHAN before discharge home. - Patient Problems (1) Syncope Current Visit: Yes Status: Acute Code(s): R55 - SYNCOPE AND COLLAPSE SNOMED Code(s): 334541970 Comment: - Unclear etiology - Possible vasovagal or orthostatic in the setting of diarrhea. - Orthostatic VS negative. No further loose stool. - Appreciate Cardiology input, possibly due to Ventricular or Atrial Arrhythmia in the setting of ischemia. Patient refuses cath, continue medical management. - Recently diagnosis with LUE DVT, TTE wnl showing no cor pulmonale. - Patient is not SOB or hypoxic, nore does he have chest pain. - Continue Pradaxa. - Consider CTA chest if patient's status deteriorates. (2) Afib Current Visit: Yes Status: Acute Code(s): I48.91 - UNSPECIFIED ATRIAL FIBRILLATION SNOMED Code(s): 09448980 Comment: - Continue digoxin - Resume Pradaxa (3) Diabetes Current Visit: Yes Status: Acute Code(s): E11.9 - TYPE 2 DIABETES MELLITUS WITHOUT COMPLICATIONS SNOMED Code(s): 20939321 Comment: - Fingersticks AC - Lispro sliding scale - Moderately good control. (4) Elevated troponin Current Visit: Yes Status: Acute Code(s): R74.8 - ABNORMAL LEVELS OF OTHER SERUM ENZYMES SNOMED Code(s): 013947769 Comment: - NSTEMI - Peaked at 2.43, trending down. No CP. - Started on metoprolol on admission - HR dropped to the 40's and metoprolol DC' d - Appreciate cardiology consult - - Recommended cardiac cath and patient is refusing stating he only wants medical management only. - Discussed with hog scalder. DC heparin gtt 12/30, Pradaxa restarted - Continue Tricor (5) HTN (hypertension) Current Visit: Yes Status: Acute Code(s): I10 - ESSENTIAL (PRIMARY) HYPERTENSION SNOMED Code(s): 04795951 Comment: - Continue losartan (6) History of CVA (cerebrovascular accident) Current Visit: Yes Status: Acute Code(s): Z86.73 - PRSNL HX OF TIA (TIA), AND CEREB INFRC W/O RESID DEFICITS SNOMED Code(s): 386180100 Comment: - Continue tricor - Pradaxa (7) UTI (urinary tract infection) Current Visit: Yes Status: Acute Comment: - Abnormal urinalysis in harsh setting of doe catheter - Urine with Staph. epidermidis greater than 100,000- - Discussed with ID as a side consult who states most likely colonization from doe. - No indication for antibiotics unless patient develops overt symptoms of UTI. (8) Urinary retention Current Visit: Yes Status: Chronic Code(s): R33.9 - RETENTION OF URINE, UNSPECIFIED SNOMED Code(s): 194538797 Comment: - Patient had recent doe catheter placement - Had an episode of hematuria and was taken off his pradaxa - then was recently dx with LUE DVT and Pradaxa was restarted - no further hematuria. - Continue doe. He is being followed by urology as an outpt. - Continue finasteride and Flowmax (9) DVT prophylaxis Current Visit: Yes Status: Acute Code(s): VMD3734 - SNOMED Code(s): 235214983 Comment: - Pradaxa (10) Full code status Current Visit: Yes Status: Acute Code(s): Z78.9 - OTHER SPECIFIED HEALTH STATUS SNOMED Code(s): 613036358 Status and Disposition: Inpatient. Will likely need JONNATHAN.
[2018-01-01] MEDS: Digoxin TAB* 0.125 MG PO SCH (17:44)
[2018-01-01] MEDS: Nicotine Patch Removal NOTE PATCH OFF SCH (20:42)
[2018-01-02 05:46] LABS: ABS Basophils 0.1 10^3/ul (0-0.2); ABS Eosinophils 0.4 10^3/ul (0-0.6); ABS Lymphocytes 2.6 10^3/ul (1.0-4.8); ABS Monocytes 0.6 10^3/ul (0-0.8); ABS Neutrophils 2.8 10^3/ul (1.5-7.7); ABS Nucleated RBC 0 10^3/ul; Eosinophil % 5.9 % (0-6); Hematocrit 34 % (42-52); Lymphocyte % 39.9 % (25-47); Mean Corpuscular HGB Conc 35 g/dl (31-36); Mean Corpuscular Hemoglobin 32 pg (27-31); Mean Corpuscular Volume 92 fL (80-94); Mean Platelet Volume 7.9 um3 (7.4-10.4); Nucleated Red Blood Cells % 0.1; Platelet Count 244 10^3/ul (150-450); Red Blood Count 3.73 10^6/ul (4.00-5.40); Red Cell Distribution Width 14 % (10.5-15); White Blood Count 6.4 10^3/ul (3.5-10.8)
[2018-01-02] MEDS: Omeprazole CAP* 20 MG PO SCH (05:58)
[2018-01-02 06:04] LABS: EGFR Non-African American 66.5 (>60)
[2018-01-02] MEDS: Insulin LISPRO* 1 UNITS UNIT SUBCUT SCH ×3 (08:52→17:42)
[2018-01-02] MEDS: Losartan TAB* 25 MG PO SCH (08:53)
[2018-01-02] MEDS: Finasteride TAB* 5 MG PO SCH (08:53)
[2018-01-02] MEDS: FENOFIBRATE 160 MG PO SCH (08:53)
[2018-01-02] MEDS: Nicotine PATCH 21 MG/24 HR* PATCH TRANSDERM SCH (08:53)
[2018-01-02] MEDS: CMC:Dabigatran CAP(NF) 150 MG CAP PO SCH ×2 (08:53→21:47)
[2018-01-02] MEDS ORDERED: Tamsulosin CAP* 0.4 MG PO SCH (09:00)
--- NOTE | 2018-01-02 12:10 | PN ---
Subjective Date of Service: 01/02/18 - CC: syncope (resolved) Interval History: Per patient ambulating and feels well. Good appetite. No c/o. He states he is awaiting [facility]. He can't remember the name of his MD or what his last job was. Medications Active Medications: Acetaminophen (Tylenol Tab*) 650 mg PO Q6H PRN PRN Reason: FEVER/PAIN Last Admin: 12/31/17 18:45 Dose: 650 mg Dabigatran (Pradaxa Cap(Nf)) 150 mg PO BID [facility] Last Admin: 01/02/18 08:53 Dose: 150 mg Device (Nicotine Mouth Piece*) 1 each INH .USE WITH NICOTROL PRN PRN Reason: CRAVING Digoxin (Lanoxin Tab*) 0.125 mg PO EVERY OTHER DAY@1700 [facility] Last Admin: 01/01/18 17:44 Dose: 0.125 mg Digoxin (Lanoxin Tab*) 0.25 mg PO EVERY OTHER DAY@1700 [facility] Last Admin: 12/31/17 18:05 Dose: 0.25 mg Fenofibrate (Tricor(Nf)) 160 mg PO DAILY WITH MEAL [facility]; Protocol Last Admin: 01/02/18 08:53 Dose: 160 mg Finasteride (Proscar Tab*) 5 mg PO DAILY [facility] Last Admin: 01/02/18 08:53 Dose: 5 mg Insulin Human Lispro (Humalog*) 0 units SUBCUT AC [facility]; Protocol Last Admin: 01/02/18 08:52 Dose: Not Given Losartan Potassium (Cozaar Tab*) 25 mg PO DAILY [facility] Last Admin: 01/02/18 08:53 Dose: 25 mg Melatonin (Melatonin) 3 mg PO BEDTIME PRN; Protocol PRN Reason: Sleep Last Admin: 12/28/17 23:28 Dose: 3 mg Nicotine (Nicotine Patch 21 Mg/24 Hr*) 1 patch TRANSDERM DAILY [facility] Last Admin: 01/02/18 08:53 Dose: 1 patch Nicotine (Nicotine Inhaler*) 10 mg INH Q2H PRN PRN Reason: CRAVING Omeprazole (Prilosec Cap*) 20 mg PO 0600 [facility] Last Admin: 01/02/18 05:58 Dose: 20 mg Ondansetron HCl (Zofran Odt Tab*) 4 mg PO Q6H PRN PRN Reason: n/v Pharmacy Profile Note (Nicotine Patch Removal Note*) 1 note PATCH OFF [address]100 [facility] Last Admin: 01/01/18 20:42 Dose: 1 note Objective Vital Signs: Temp Pulse Resp BP Pulse Ox 97.6 F 59 16 135/50 98 01/02/18 07:39 01/02/18 07:39 01/02/18 08:00 01/02/18 07:39 01/02/18 07:39 Oxygen Devices in Use Now: None Appearance: Tall lean male, lying on one pillow, in no distress. Eyes: No Scleral Icterus, PERRLA Ears/Nose/Mouth/Throat: Clear Oropharnyx, Mucous Membranes Moist Neck: NL Appearance and Movements; NL JVP Respiratory: Symmetrical Chest Expansion and Respiratory Effort, Clear to Auscultation Cardiovascular: NL Sounds; No Murmurs; No JVD, RRR Abdominal: NL Sounds; No Tenderness; No Distention Extremities: No Edema, No Clubbing, Cyanosis Skin: No Rash or Ulcers Neurological: NL Muscle Strength and Tone Laboratory Results: 01/02/18 05:36 01/02/18 05:36 INR (Anticoag Therapy) 1.22 (0.77-1.02) H 12/28/17 17:05 APTT 78.5 seconds (26.0-36.3) H 12/30/17 08:17 Total Bilirubin 0.60 mg/dL (0.2-1.0) 12/28/17 17:05 AST 27 U/L (13-39) 12/28/17 17:05 ALT 13 U/L (7-52) 12/28/17 17:05 Alkaline Phosphatase 39 U/L (34-104) 12/28/17 17:05 Total Protein 6.8 g/dL (6.4-8.9) 12/28/17 17:05 Albumin 3.8 g/dL (3.2-5.2) 12/28/17 17:05 Globulin 3.0 g/dL (2-4) 12/28/17 17:05 Albumin/Globulin Ratio 1.3 (1-3) 12/28/17 17:05 Triglycerides 82 mg/dL 12/29/17 05:33 Cholesterol 134 mg/dL 12/29/17 05:33 LDL Cholesterol 92 mg/dL 12/29/17 05:33 HDL Cholesterol 25.9 mg/dL 12/29/17 05:33 TSH 3.36 mcIU/mL (0.34-5.60) 12/28/17 17:05 12/28/17 12/28/17 12/28/17 17:05 20:59 23:15 Troponin I 1.51 H* 2.35 H* 2.43 H* 12/29/17 05:33 Troponin I 2.08 H* Diagnostic Imaging: ECHO 12/28/17: poor image quality, LVEF 55%, RV not seen , grossly normal valves. Assessment/Plan 77 yo admitted with syncope and mild bump in trops over baseline chronic elevation. Recent DVT arm (December 17), therefore differential of PE to bump in trops vs CAD to bump in trops. Transient bradycardia in ED, unsure if related to medication, other 2 ECG's show NSR in the 70's. Chronic RBBB. Recent SVT, hx PAF which could also lead to the above presentation. Parkinsons can lead to low BP. PMHx DM, HTN, dyslipidemia, smoker, Parkinsons and dementia. Pt delined cath. Decision made not to check CTA or VQ as it would not global director air and climate change. Pt w/o anginal symptoms. Balance an issue per PT. Agree with the approach for medical management. OK to continue digoxen, agree with Pradaxa and CAD risk factor modification. Option of event monitor as an out patient to look for tachy or eula arrhythmias that could contribute to symptoms/syncope. Cardiology will follow distantly, feel free to call PRN.
--- NOTE | 2018-01-02 14:56 | PN ---
Subjective Date of Service: 01/02/18 Interval History: Patient in very god spirits, denies complaints. Is walking and feels as if he is progressing with his functional capabilities. Patient denies CP, SOB, palpitations, abdominal pain, F/C, N/V, or other pain. Patient is excited for rehab. Family History: Unchanged from Admission Social History: Unchanged from Admission Past Medical History: Unchanged from Admission Objective Active Medications: Acetaminophen (Tylenol Tab*) 650 mg PO Q6H PRN PRN Reason: FEVER/PAIN Last Admin: 12/31/17 18:45 Dose: 650 mg Dabigatran (Pradaxa Cap(Nf)) 150 mg PO BID [facility] Last Admin: 01/02/18 08:53 Dose: 150 mg Device (Nicotine Mouth Piece*) 1 each INH .USE WITH NICOTROL PRN PRN Reason: CRAVING Digoxin (Lanoxin Tab*) 0.125 mg PO EVERY OTHER DAY@1700 [facility] Last Admin: 01/01/18 17:44 Dose: 0.125 mg Digoxin (Lanoxin Tab*) 0.25 mg PO EVERY OTHER DAY@1700 [facility] Last Admin: 12/31/17 18:05 Dose: 0.25 mg Fenofibrate (Tricor(Nf)) 160 mg PO DAILY WITH MEAL [facility]; Protocol Last Admin: 01/02/18 08:53 Dose: 160 mg Finasteride (Proscar Tab*) 5 mg PO DAILY [facility] Last Admin: 01/02/18 08:53 Dose: 5 mg Insulin Human Lispro (Humalog*) 0 units SUBCUT AC [facility]; Protocol Last Admin: 01/02/18 14:49 Dose: Not Given Losartan Potassium (Cozaar Tab*) 25 mg PO DAILY [facility] Last Admin: 01/02/18 08:53 Dose: 25 mg Melatonin (Melatonin) 3 mg PO BEDTIME PRN; Protocol PRN Reason: Sleep Last Admin: 12/28/17 23:28 Dose: 3 mg Nicotine (Nicotine Patch 21 Mg/24 Hr*) 1 patch TRANSDERM DAILY [facility] Last Admin: 01/02/18 08:53 Dose: 1 patch Nicotine (Nicotine Inhaler*) 10 mg INH Q2H PRN PRN Reason: CRAVING Omeprazole (Prilosec Cap*) 20 mg PO 0600 [facility] Last Admin: 01/02/18 05:58 Dose: 20 mg Ondansetron HCl (Zofran Odt Tab*) 4 mg PO Q6H PRN PRN Reason: n/v Pharmacy Profile Note (Nicotine Patch Removal Note*) 1 note PATCH OFF 2100 [facility] Last Admin: 01/01/18 20:42 Dose: 1 note Vital Signs - 8 hr 01/02/18 01/02/18 07:39 08:00 Temperature 97.6 F Pulse Rate 59 Respiratory 16 16 Rate Blood Pressure 135/50 (mmHg) O2 Sat by Pulse 98 Oximetry Oxygen Devices in Use Now: None Appearance: Patient is a 77yo male who appears stated age and is sitting in the bed in [facility]. Eyes: No Scleral Icterus, PERRLA Ears/Nose/Mouth/Throat: NL Teeth, Lips, Gums, Clear Oropharnyx, Mucous Membranes Moist Neck: NL Appearance and Movements; NL JVP, Trachea Midline Respiratory: Symmetrical Chest Expansion and Respiratory Effort, Clear to Auscultation Cardiovascular: NL Sounds; No Murmurs; No JVD, RRR, No Edema Abdominal: NL Sounds; No Tenderness; No Distention, No Hepatosplenomegaly Lymphatic: No Cervical Adenopathy Extremities: No Edema, No Clubbing, Cyanosis Skin: No Rash or Ulcers, No Nodules or Sclerosis Neurological: Alert and Oriented x 3, NL Sensation, NL Muscle Strength and Tone , - - CN II-XII intact. Result Diagrams: 01/02/18 05:36 01/02/18 05:36 Additional Lab and Data: Lab Results Microbiology and Other Data: Microbiology 12/28/17 17:05 Urine Culture - Preliminary Urine Staphylococcus Epidermidis Assess/Plan/Problems-Billing Assessment: Mr Shoemaker is a 77YO male poor historian HX DM2, AFIB, CVA, DVT, Parkinsonism, HTN, hypertriglyceridemia, dementia, & gout who reports getting up in the middle of the night to use the bathroom, having diarrheal incontinence and then "passing out", found to have NSTEMI. Patient elected for medical management and will need JONNATHAN before discharge home. - Patient Problems (1) Syncope Current Visit: Yes Status: Acute Code(s): R55 - SYNCOPE AND COLLAPSE SNOMED Code(s): 495057658 Comment: - Unclear etiology - Possible vasovagal or orthostatic in the setting of diarrhea. - Orthostatic VS negative. No further loose stool. - Appreciate Cardiology input, possibly due to Ventricular or Atrial Arrhythmia in the setting of ischemia. Patient refuses cath, continue medical management. - Consider terminal operator monitoring to assess for Tachy/Gerard Arrhythmia - Recently diagnosis with LUE DVT, RV not visualized on TTE. - Confirmation or R/O of PE would not sales and service change leader. - Patient is not SOB or hypoxic, nor does he have chest pain. - Continue Pradaxa. - Consider CTA chest if patient's status deteriorates. (2) Afib Current Visit: Yes Status: Acute Code(s): I48.91 - UNSPECIFIED ATRIAL FIBRILLATION SNOMED Code(s): 15638963 Comment: - Continue digoxin - Resume Pradaxa (3) Diabetes Current Visit: Yes Status: Acute Code(s): E11.9 - TYPE 2 DIABETES MELLITUS WITHOUT COMPLICATIONS SNOMED Code(s): 49599647 Comment: - Fingersticks AC - Lispro sliding scale - Moderately good control. (4) Elevated troponin Current Visit: Yes Status: Acute Code(s): R74.8 - ABNORMAL LEVELS OF OTHER SERUM ENZYMES SNOMED Code(s): 695166386 Comment: - NSTEMI - Peaked at 2.43, trending down. No CP. - Started on metoprolol on admission - HR dropped to the 40's and metoprolol DC' d - Appreciate cardiology consult - - Recommended cardiac cath and patient is refusing stating he only wants medical management only. - Discussed with search marketing analyst. DC heparin gtt 12/30, Pradaxa restarted - Continue Tricor (5) HTN (hypertension) Current Visit: Yes Status: Acute Code(s): I10 - ESSENTIAL (PRIMARY) HYPERTENSION SNOMED Code(s): 96339772 Comment: - Continue losartan (6) History of CVA (cerebrovascular accident) Current Visit: Yes Status: Acute Code(s): Z86.73 - PRSNL HX OF TIA (TIA), AND CEREB INFRC W/O RESID DEFICITS SNOMED Code(s): 314934497 Comment: - Continue tricor - Pradaxa (7) UTI (urinary tract infection) Current Visit: Yes Status: Acute Comment: - Abnormal urinalysis in harsh setting of doe catheter - Urine with Staph. epidermidis greater than 100,000- - Discussed with ID as a side consult who states most likely colonization from doe. - No indication for antibiotics unless patient develops overt symptoms of UTI. (8) Urinary retention Current Visit: Yes Status: Chronic Code(s): R33.9 - RETENTION OF URINE, UNSPECIFIED SNOMED Code(s): 120441409 Comment: - Patient had recent doe catheter placement - Had an episode of hematuria and was taken off his pradaxa - then was recently dx with LUE DVT and Pradaxa was restarted - no further hematuria. - Continue doe. He is being followed by urology as an outpt. - Continue finasteride and Flowmax (9) DVT prophylaxis Current Visit: Yes Status: Acute Code(s): QIB1086 - SNOMED Code(s): 529673522 Comment: - Pradaxa (10) Full code status Current Visit: Yes Status: Acute Code(s): Z78.9 - OTHER SPECIFIED HEALTH STATUS SNOMED Code(s): 384617481 Status and Disposition: Inpatient. Pending JONNATHAN When bed available.
[2018-01-02] MEDS: Digoxin TAB* 0.125 MG PO SCH (17:39)
[2018-01-02] MEDS: Nicotine Patch Removal NOTE PATCH OFF SCH (22:07)
[2018-01-03] MEDS: Omeprazole CAP* 20 MG PO SCH (05:39)
[2018-01-03] MEDS: Insulin LISPRO* 1 UNITS UNIT SUBCUT SCH ×3 (08:25→17:14)
[2018-01-03] MEDS: Finasteride TAB* 5 MG PO SCH (09:03)
[2018-01-03] MEDS: CMC:Dabigatran CAP(NF) 150 MG CAP PO SCH ×2 (09:03→20:32)
[2018-01-03] MEDS: Aspirin EC TAB* 81 MG TAB.EC PO SCH (09:03)
[2018-01-03] MEDS: Nicotine PATCH 21 MG/24 HR* PATCH TRANSDERM SCH (09:03)
[2018-01-03] MEDS: FENOFIBRATE 160 MG PO SCH (09:03)
[2018-01-03] MEDS: Losartan TAB* 25 MG PO SCH (09:03)
[2018-01-03] MEDS ORDERED: Zolpidem TAB* 5 MG PO PRN (11:01)
--- NOTE | 2018-01-03 14:14 | PN ---
Subjective Date of Service: 01/03/18 Interval History: Patient feels relatively well today. Is very bothered by insomnia. Denies CP, SOB, N/V, abdominal pain, F/C, diarrhea, dizziness, palpitations, or other pain. Patient has walked minimally today but felt steady on feet. Family History: Unchanged from Admission Social History: Unchanged from Admission Past Medical History: Unchanged from Admission Objective Active Medications: Acetaminophen (Tylenol Tab*) 650 mg PO Q6H PRN PRN Reason: FEVER/PAIN Last Admin: 12/31/17 18:45 Dose: 650 mg Aspirin (Aspirin Ec Tab*) 81 mg PO DAILY [facility] Last Admin: 01/03/18 09:03 Dose: 81 mg Dabigatran (Pradaxa Cap(Nf)) 150 mg PO BID [facility] Last Admin: 01/03/18 09:03 Dose: 150 mg Device (Nicotine Mouth Piece*) 1 each INH .USE WITH NICOTROL PRN PRN Reason: CRAVING Digoxin (Lanoxin Tab*) 0.125 mg PO EVERY OTHER DAY@1700 [facility] Last Admin: 01/01/18 17:44 Dose: 0.125 mg Digoxin (Lanoxin Tab*) 0.25 mg PO EVERY OTHER DAY@1700 [facility] Last Admin: 01/02/18 17:39 Dose: 0.25 mg Fenofibrate (Tricor(Nf)) 160 mg PO DAILY WITH MEAL [facility]; Protocol Last Admin: 01/03/18 09:03 Dose: 160 mg Finasteride (Proscar Tab*) 5 mg PO DAILY [facility] Last Admin: 01/03/18 09:03 Dose: 5 mg Insulin Human Lispro (Humalog*) 0 units SUBCUT AC [facility]; Protocol Last Admin: 01/03/18 11:44 Dose: Not Given Losartan Potassium (Cozaar Tab*) 25 mg PO DAILY [facility] Last Admin: 01/03/18 09:03 Dose: 25 mg Melatonin (Melatonin) 3 mg PO BEDTIME PRN; Protocol PRN Reason: Sleep Last Admin: 12/28/17 23:28 Dose: 3 mg Nicotine (Nicotine Patch 21 Mg/24 Hr*) 1 patch TRANSDERM DAILY [facility] Last Admin: 01/03/18 09:03 Dose: 1 patch Nicotine (Nicotine Inhaler*) 10 mg INH Q2H PRN PRN Reason: CRAVING Omeprazole (Prilosec Cap*) 20 mg PO 0600 [facility] Last Admin: 01/03/18 05:39 Dose: 20 mg Ondansetron HCl (Zofran Odt Tab*) 4 mg PO Q6H PRN PRN Reason: n/v Pharmacy Profile Note (Nicotine Patch Removal Note*) 1 note PATCH OFF 2100 [facility] Last Admin: 01/02/18 22:07 Dose: 1 note Zolpidem Tartrate (Ambien Tab*) 5 mg PO BEDTIME PRN PRN Reason: INSOMNIA Vital Signs - 8 hr 01/03/18 01/03/18 07:25 08:00 Temperature 97.7 F Pulse Rate 73 Respiratory 16 16 Rate Blood Pressure 113/50 (mmHg) O2 Sat by Pulse 99 Oximetry Oxygen Devices in Use Now: None Appearance: Patient is a 77yo male who appears stated age and is sitting in the bed in [facility]. Eyes: No Scleral Icterus, PERRLA Ears/Nose/Mouth/Throat: NL Teeth, Lips, Gums, Clear Oropharnyx, Mucous Membranes Moist Neck: NL Appearance and Movements; NL JVP, Trachea Midline Respiratory: Symmetrical Chest Expansion and Respiratory Effort, Clear to Auscultation Cardiovascular: NL Sounds; No Murmurs; No JVD, RRR, No Edema, - - Diminished but palpable Right DP pulse. Abdominal: NL Sounds; No Tenderness; No Distention, No Hepatosplenomegaly Lymphatic: No Cervical Adenopathy Extremities: No Edema, No Clubbing, Cyanosis Skin: No Rash or Ulcers, No Nodules or Sclerosis Neurological: Alert and Oriented x 3, NL Sensation, NL Muscle Strength and Tone Result Diagrams: 01/02/18 05:36 01/02/18 05:36 Additional Lab and Data: Lab Results Microbiology and Other Data: Microbiology 12/28/17 17:05 Urine Culture - Preliminary Urine Staphylococcus Epidermidis Assess/Plan/Problems-Billing Assessment: Mr Shoemaker is a 77YO male poor historian HX DM2, AFIB, CVA, DVT, Parkinsonism, HTN, hypertriglyceridemia, dementia, & gout who reports getting up in the middle of the night to use the bathroom, having diarrheal incontinence and then "passing out", found to have NSTEMI. Patient elected for medical management and will need JONNATHAN before discharge home. - Patient Problems (1) Syncope Current Visit: Yes Status: Acute Code(s): R55 - SYNCOPE AND COLLAPSE SNOMED Code(s): 481160580 Comment: - Unclear etiology - Possible vasovagal or orthostatic in the setting of diarrhea. - Orthostatic VS negative. No further loose stool. - Appreciate Cardiology input, possibly due to Ventricular or Atrial Arrhythmia in the setting of ischemia. Patient refuses cath, continue medical management. - Consider rehab director monitoring to assess for Tachy/Gerard Arrhythmia - Recently diagnosis with LUE DVT, RV not visualized on TTE. 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 - Patient is not SOB or hypoxic, nor does he have chest pain. - Continue Pradaxa. - Consider CTA chest if patient's status deteriorates. (2) Afib Current Visit: Yes Status: Acute Code(s): I48.91 - UNSPECIFIED ATRIAL FIBRILLATION SNOMED Code(s): 46485069 Comment: - Continue digoxin - Resume Pradaxa (3) Diabetes Current Visit: Yes Status: Acute Code(s): E11.9 - TYPE 2 DIABETES MELLITUS WITHOUT COMPLICATIONS SNOMED Code(s): 79631517 Comment: - Fingersticks AC - Lispro sliding scale - Moderately good control. (4) Elevated troponin Current Visit: Yes Status: Acute Code(s): R74.8 - ABNORMAL LEVELS OF OTHER SERUM ENZYMES SNOMED Code(s): 113340719 Comment: - NSTEMI - Peaked at 2.43, trending down. No CP. - Started on metoprolol on admission - HR dropped to the 40's and metoprolol DC' d - Appreciate cardiology consult - - Recommended cardiac cath and patient is refusing stating he only wants medical management only. - Discussed with vp mobile products. DC heparin gtt 12/30, Pradaxa restarted - Continue Tricor (5) HTN (hypertension) Current Visit: Yes Status: Acute Code(s): I10 - ESSENTIAL (PRIMARY) HYPERTENSION SNOMED Code(s): 65354060 Comment: - Continue losartan (6) History of CVA (cerebrovascular accident) Current Visit: Yes Status: Acute Code(s): Z86.73 - PRSNL HX OF TIA (TIA), AND CEREB INFRC W/O RESID DEFICITS SNOMED Code(s): 174036661 Comment: - Continue tricor - Pradaxa (7) UTI (urinary tract infection) Current Visit: Yes Status: Acute Comment: - Abnormal urinalysis in the setting of doe catheter - Urine with Staph. epidermidis greater than 100,000- - Discussed with ID as a side consult who states most likely colonization from doe. - No indication for antibiotics unless patient develops overt symptoms of UTI. (8) Urinary retention Current Visit: Yes Status: Chronic Code(s): R33.9 - RETENTION OF URINE, UNSPECIFIED SNOMED Code(s): 536635832 Comment: - Patient had recent doe catheter placement - Had an episode of hematuria and was taken off his pradaxa - then was recently dx with LUE DVT and Pradaxa was restarted - no further hematuria. - Continue doe. He is being followed by urology as an outpt. - Continue finasteride and Flowmax (9) DVT prophylaxis Current Visit: Yes Status: Acute Code(s): ZNL7517 - SNOMED Code(s): 938314599 Comment: - Pradaxa (10) Full code status Current Visit: Yes Status: Acute Code(s): Z78.9 - OTHER SPECIFIED HEALTH STATUS SNOMED Code(s): 629956456 Status and Disposition: Inpatient. Pending JONNATHAN When bed available.
[2018-01-03] MEDS: Digoxin TAB* 0.125 MG PO SCH (17:24)
[2018-01-03] MEDS: Nicotine Patch Removal NOTE PATCH OFF SCH (20:32)
[2018-01-04] MEDS: Omeprazole CAP* 20 MG PO SCH (05:03)
[2018-01-04 05:35] LABS: ABS Basophils 0.1 10^3/ul (0-0.2); ABS Eosinophils 0.4 10^3/ul (0-0.6); ABS Lymphocytes 2.5 10^3/ul (1.0-4.8); ABS Monocytes 0.6 10^3/ul (0-0.8); ABS Neutrophils 3.4 10^3/ul (1.5-7.7); ABS Nucleated RBC 0 10^3/ul; Eosinophil % 5.9 % (0-6); Hematocrit 35 % (42-52); Hemoglobin 11.9 g/dl (14.0-18.0); Lymphocyte % 35.2 % (25-47); Mean Corpuscular HGB Conc 34 g/dl (31-36); Mean Corpuscular Hemoglobin 32 pg (27-31); Mean Corpuscular Volume 94 fL (80-94); Mean Platelet Volume 7.8 um3 (7.4-10.4); Nucleated Red Blood Cells % 0.1; Platelet Count 235 10^3/ul (150-450); Red Blood Count 3.73 10^6/ul (4.00-5.40); Red Cell Distribution Width 14 % (10.5-15)
[2018-01-04 05:51] LABS: EGFR Non-African American 61.2 (>60)
[2018-01-04] MEDS: Insulin LISPRO* 1 UNITS UNIT SUBCUT SCH ×3 (08:09→17:34)
[2018-01-04] MEDS: FENOFIBRATE 160 MG PO SCH (08:32)
[2018-01-04] MEDS: CMC:Dabigatran CAP(NF) 150 MG CAP PO SCH ×2 (08:33→20:23)
[2018-01-04] MEDS: Aspirin EC TAB* 81 MG TAB.EC PO SCH (08:34)
[2018-01-04] MEDS: Finasteride TAB* 5 MG PO SCH (08:34)
[2018-01-04] MEDS: Losartan TAB* 25 MG PO SCH (08:35)
[2018-01-04] MEDS: Nicotine PATCH 21 MG/24 HR* PATCH TRANSDERM SCH (08:35)
--- NOTE | 2018-01-04 16:27 | PN ---
Subjective Date of Service: 01/04/18 Interval History: Patient seen and examined. States he feels he is improving, felt well ambulating. Denies SOB, no chest pain, no fevers or chills. Family History: Unchanged from Admission Social History: Unchanged from Admission Past Medical History: Unchanged from Admission Objective Active Medications: Acetaminophen (Tylenol Tab*) 650 mg PO Q6H PRN PRN Reason: FEVER/PAIN Last Admin: 12/31/17 18:45 Dose: 650 mg Aspirin (Aspirin Ec Tab*) 81 mg PO DAILY [facility] Last Admin: 01/04/18 08:34 Dose: 81 mg Dabigatran (Pradaxa Cap(Nf)) 150 mg PO BID [facility] Last Admin: 01/04/18 08:33 Dose: 150 mg Device (Nicotine Mouth Piece*) 1 each INH .USE WITH NICOTROL PRN PRN Reason: CRAVING Digoxin (Lanoxin Tab*) 0.125 mg PO EVERY OTHER DAY@1700 [facility] Last Admin: 01/03/18 17:24 Dose: 0.125 mg Digoxin (Lanoxin Tab*) 0.25 mg PO EVERY OTHER DAY@1700 [facility] Last Admin: 01/02/18 17:39 Dose: 0.25 mg Fenofibrate (Tricor(Nf)) 160 mg PO DAILY WITH MEAL [facility]; Protocol Last Admin: 01/04/18 08:32 Dose: 160 mg Finasteride (Proscar Tab*) 5 mg PO DAILY [facility] Last Admin: 01/04/18 08:34 Dose: 5 mg Insulin Human Lispro (Humalog*) 0 units SUBCUT AC [facility]; Protocol Last Admin: 01/04/18 14:34 Dose: Not Given Losartan Potassium (Cozaar Tab*) 25 mg PO DAILY [facility] Last Admin: 01/04/18 08:35 Dose: 25 mg Melatonin (Melatonin) 3 mg PO BEDTIME PRN; Protocol PRN Reason: Sleep Last Admin: 12/28/17 23:28 Dose: 3 mg Nicotine (Nicotine Patch 21 Mg/24 Hr*) 1 patch TRANSDERM DAILY [facility] Last Admin: 01/04/18 08:35 Dose: 1 patch Nicotine (Nicotine Inhaler*) 10 mg INH Q2H PRN PRN Reason: CRAVING Omeprazole (Prilosec Cap*) 20 mg PO 0600 [facility] Last Admin: 01/04/18 05:03 Dose: 20 mg Ondansetron HCl (Zofran Odt Tab*) 4 mg PO Q6H PRN PRN Reason: n/v Pharmacy Profile Note (Nicotine Patch Removal Note*) 1 note PATCH OFF [facility] [facility] Last Admin: 01/03/18 20:32 Dose: 1 note Zolpidem Tartrate (Ambien Tab*) 5 mg PO BEDTIME PRN PRN Reason: INSOMNIA Oxygen Devices in Use Now: None Appearance: Alert, NAD Eyes: No Scleral Icterus, PERRLA Ears/Nose/Mouth/Throat: Clear Oropharnyx, Mucous Membranes Moist Neck: NL Appearance and Movements; NL JVP, Trachea Midline Respiratory: Symmetrical Chest Expansion and Respiratory Effort, Clear to Auscultation Cardiovascular: NL Sounds; No Murmurs; No JVD, No Edema Abdominal: NL Sounds; No Tenderness; No Distention Neurological: Alert and Oriented x 3, NL Sensation Nutrition: Taking PO's Result Diagrams: 01/04/18 05:27 01/04/18 05:27 Additional Lab and Data: Lab Results Microbiology and Other Data: Microbiology 12/28/17 17:05 Urine Culture - Preliminary Urine Staphylococcus Epidermidis Assess/Plan/Problems-Billing Assessment: This is a 77YO male poor historian Hx DM2, AFIB, CVA, DVT, Parkinsonism, HTN, hypertriglyceridemia, dementia, & gout who reports getting up in the middle of the night to use the bathroom, having diarrheal incontinence and then "passing out", found to have NSTEMI. Patient elected for medical management as opposed to cardiac cath. - Patient Problems (1) Elevated troponin Code(s): R74.8 - ABNORMAL LEVELS OF OTHER SERUM ENZYMES SNOMED Code(s): 972249115 Comment: - NSTEMI with trop peak of 2.43, trending down - Asymptomatic - Started on metoprolol, but cancelled 2/2 bradycardia - Continue Pradaxa and tricor - Cardiology following, continue conservative medical management as patient declines cardiac cath (2) Syncope Code(s): R55 - SYNCOPE AND COLLAPSE SNOMED Code(s): 288873988 Comment: - In absence of other findings, syncope was likely due to NSTEMI as evidenced by elevated troponins - No identifiable new arrhythmia on telemetry, may have had afib with RVR and hypoperfusion - No SOB, CTA chest not indicated - Continue medical management (3) Afib Code(s): I48.91 - UNSPECIFIED ATRIAL FIBRILLATION SNOMED Code(s): 93543712 Comment: - Continue digoxin and Pradaxa, currently RSR with borderline bradycardia (4) Diabetes Code(s): E11.9 - TYPE 2 DIABETES MELLITUS WITHOUT COMPLICATIONS SNOMED Code(s) : 04111002 Comment: - Stable on BG ACHS with lispro SS (5) HTN (hypertension) Code(s): I10 - ESSENTIAL (PRIMARY) HYPERTENSION SNOMED Code(s): 57567460 Comment: - Stable on losartan (6) History of CVA (cerebrovascular accident) Code(s): Z86.73 - PRSNL HX OF TIA (TIA), AND CEREB INFRC W/O RESID DEFICITS SNOMED Code(s): 021442263 Comment: - Stable on tricor and pradaxa (7) UTI (urinary tract infection) Comment: - Likley colonization 2/2 doe, asymptomatic - No clinical indication for atbx - Follow up with urology as outpatient (8) Urinary retention Code(s): R33.9 - RETENTION OF URINE, UNSPECIFIED SNOMED Code(s): 529222843 Comment: - Had doe, was discontinued and replaced again for retention - Follow with urology for voiding trial - Continue finasteride and Flowmax (9) DVT prophylaxis Code(s): MNO9059 - SNOMED Code(s): 463710888 Comment: - On Pradaxa, has pre-existing LUE DVT (10) Full code status Code(s): Z78.9 - OTHER SPECIFIED HEALTH STATUS SNOMED Code(s): 955105895 Status and Disposition: DC to [facility] tomorrow when prior auth obtained.
[2018-01-04] MEDS: Digoxin TAB* 0.125 MG PO SCH (17:41)
[2018-01-04] MEDS: Nicotine Patch Removal NOTE PATCH OFF SCH (20:24)
[2018-01-04] MEDS: Acetaminophen TAB* 325 MG PO PRN (20:39)
[2018-01-05] MEDS: Omeprazole CAP* 20 MG PO SCH (05:09)
[2018-01-05 07:50] VITALS: BP 130/48
[2018-01-05] MEDS: Insulin LISPRO* 1 UNITS UNIT SUBCUT SCH (07:50)
[2018-01-05] MEDS: Losartan TAB* 25 MG PO SCH (09:06)
[2018-01-05] MEDS: Acetaminophen TAB* 325 MG PO PRN (09:07)
[2018-01-05] MEDS: Aspirin EC TAB* 81 MG TAB.EC PO SCH (09:07)
[2018-01-05] MEDS: FENOFIBRATE 160 MG PO SCH (09:07)
[2018-01-05] MEDS: CMC:Dabigatran CAP(NF) 150 MG CAP PO SCH (09:07)
[2018-01-05] MEDS: Finasteride TAB* 5 MG PO SCH (09:07)
[2018-01-05] MEDS: Nicotine PATCH 21 MG/24 HR* PATCH TRANSDERM SCH (09:07)
--- NOTE | 2018-01-05 10:57 | DS ---
CC: Dr. Piyush Rodas; Dr. Angel Jiménez * DISCHARGE SUMMARY: DATE OF ADMISSION: 12/28/17 DATE OF DISCHARGE: 01/05/18 ATTENDING PHYSICIAN: Dr. Kinza Sandhu.* (DICTATED BY LARRY KO NP) PRIMARY CARE PROVIDER: Dr. Angel Jiménez. CHIEF COMPLAINT AND HOSPITAL COURSE: This is a 77-year-old male patient who had a syncopal episode at home. He also felt like he was having some diarrhea and incontinence and then had a sensation of passing out. He does have a history of diabetes mellitus type 2, paroxysmal atrial fibrillation, CVA, DVT, Parkinson's disease, hypertension, hypertriglyceridemia, and dementia, also gout. The patient upon arrival in the emergency department was found to have an elevated troponin and ruled in for NSTEMI. His troponin peak was 2.43. He remained asymptomatic, however, he did not complain of any chest pain or any other symptoms. It is unclear whether his syncope was secondary due to the NSTEMI versus having an underlying arrhythmia. It is the possibility that with history of atrial fibrillation that he had rapid AFib and some hypoperfusion, which caused a syncope. However, we did not catch anything on EKG or on telemetry. There were no further ventricular arrhythmias or atrial arrhythmias while he was hospitalized. He was started on beta-rachel for his NSTEMI. The patient declined to have cardiac catheterization. He became bradycardic and the beta-rachel was stopped. He was continued on Pradaxa, which he had been on in the past. Again, the patient declined having cardiac catheterization stating that he wished to pursue conservative medical management only. Also significant note, the patient did have some urinary retention with urinary tract infection. He had a Clement inserted initially, which was removed. The patient retained and he had the Clement reinserted. He is currently on finasteride and Flomax. He will follow up as an outpatient with the Urology. He will be discharged with his Clement in place. The urinary tract infection, however, looks like it is likely colonization from the indwelling Clement catheter. No clinical indication for antibiotics at this time and again he should follow up with the urologist as an outpatient. DISCHARGE DIAGNOSES: 1. Non-ST elevation myocardial infarction with elevated troponin, now resolved. 2. Syncope and collapse likely secondary to #1. 3. History of paroxysmal atrial fibrillation, started on digoxin and continued on anticoagulation with Pradaxa. 4. History of diabetes, stable blood sugar currently. 5. Hypertension. He is continued on his losartan. Beta-rachel was discontinued. 6. History of cerebrovascular accident, currently at baseline. Continue on TriCor and Pradaxa. 7. Urinary tract infection likely colonization. No treatment necessary. 8. History of urinary retention. Indwelling Clement catheter remaining. 9. History of left upper extremity deep vein thrombosis at baseline. Again, the patient is anticoagulated with Pradaxa. This will be continued. MEDICATIONS FOR DISCHARGE: Include: 1. Flomax 0.4 mg p.o. daily. 2. Zolpidem 5 mg at bedtime as needed. 3. Lovaza 2 caps p.o. b.i.d. 4. Losartan 25 mg daily. 5. Finasteride 5 mg p.o. daily. 6. Fenofibrate 160 mg daily. 7. Digoxin 0.25 mg every other day and 0.125 mg on opposite days. 8. Pradaxa 150 mg p.o. b.i.d. 9. Krunal aspirin caffeine mix 3 tabs p.o. daily as needed for pain. 10. Omeprazole 20 mg p.o. daily. 11. Nicotine patch 21 mg one patch daily. 12. Aspirin 81 mg daily. 13. Regular Tylenol 650 mg q.6 hours as needed. REVIEW OF SYSTEMS: The patient is alert, does not complain any fever, fatigue, or chills. No chest pain. No shortness of breath. No abdominal pain. No nausea, no vomiting, no constipation or diarrhea. These have resolved. No arthralgias and myalgias. He does complain of some general weakness, but no further constitutional complaints. PHYSICAL EXAMINATION: Today, the patient is awake, alert, well appearing. Vital signs are blood pressure 130/48, heart rate 63, respiratory rate 20, O2 saturation 100% on room air, temperature 98.1. HEENT: Patient is atraumatic, normocephalic. PERRLA with anicteric sclerae. Oral mucosa is moist. Tongue is midline. Neck is supple, nontender. No JVD noted. No carotid bruits auscultated. Cardiovascular: S1, S2 present. Rate is bradycardic. Rhythm is regular. No ectopy on telemetry. S1, S2 present. Lungs are clear bilaterally at the apices with no wheezing, rhonchi, or rales. He is mildly diminished at the bases. He has good air entry. Abdomen is soft, nontender, nondistended. Positive bowel sounds in all 4 quadrants. No organomegaly appreciated. : He has a Clement catheter draining clear yellow urine. Musculoskeletal: There is no clubbing, no cyanosis and no pedal edema. He has +2 distal pulses palpable. Full range of motion. He has a steady gait with assistive device. He is currently using walker and does have some physical rehab needs. Neurologic: He does get forgetful at times and requires re- orientation, but otherwise, he is alert and appropriate. Psychiatric: Cooperative and also appropriate. LABORATORY DATA: WBC 7, RBC 3.73, hemoglobin 11.9, hematocrit 35, platelets 235. Sodium 138, potassium 4.2, chloride 110, CO2 of 24, BUN 20, creatinine 1.16. GFR 74.1, glucose 101 to 124, his range over the last 24 hours, calcium 8.8, magnesium is 2. Presenting troponin was 1.51, then 2.35, 2.43, and 2.08. Lipid profile, triglycerides 82, cholesterol 134, LDL 92, HDL was 25.9. TSH is 3.36. IMAGING: CT of the brain dated 12/28/17 shows no acute intracranial pathology. No change from the comparison study. Recommendations: Consider further imaging of cyst with MRI if not already completed. DISPOSITION: The patient will be discharged to [facility]. Please note that the patient was originally accepted to [facility], however, insurance did not give authorization for patient to stay in the [facility]. Case management reached out to patient's to explain short-term rehab needs and she is accepting the patient going to [facility] today. The patient was discharged via wheelchair passenger coach driver in stable condition. All questions were answered. Again, the case checker communicated with the family and they are aware the plan of care and in agreement. LARRY KO, DYLON [id number]/[facility] #: [id number] [facility]
== END 2018-01-05 11:49 | DRG 281 ==
LOC: ED 16:09 → MEDTELE 22:10 → OBSVTOIN 22:29 → MEDTELE 22:34
PROVIDERS: ADMIT Hospitalist; ATTEND Internal Medicine
DX: I21.4 Non-ST elevation (NSTEMI) myocardial infarction (principal); I47.1 Supraventricular tachycardia; I48.0 Paroxysmal atrial fibrillation; E11.9 Type 2 diabetes mellitus without complications; I10 Essential (primary) hypertension; B95.7 Other staphylococcus as the cause of diseases classified elsewhere; G20 Parkinson's disease; F02.80 Dementia in other diseases classified elsewhere, unspecified severity, without behavioral disturbance, psychotic disturbance, mood disturbance, and anxiety; E78.1 Pure hyperglyceridemia; I45.10 Unspecified right bundle-branch block; I44.0 Atrioventricular block, first degree; M10.9 Gout, unspecified; N40.1 Benign prostatic hyperplasia with lower urinary tract symptoms; R33.8 Other retention of urine; F17.210 Nicotine dependence, cigarettes, uncomplicated; R55 Syncope and collapse; G47.00 Insomnia, unspecified; Z79.01 Long term (current) use of anticoagulants; Z86.718 Personal history of other venous thrombosis and embolism; Z86.73 Personal history of transient ischemic attack (TIA), and cerebral infarction without residual deficits; Z79.82 Long term (current) use of aspirin; Z79.899 Other long term (current) drug therapy; Z88.8 Allergy status to other drugs, medicaments and biological substances; Z91.048 Other nonmedicinal substance allergy status; Z82.49 Family history of ischemic heart disease and other diseases of the circulatory system; Z83.3 Family history of diabetes mellitus; Z22.39 Carrier of other specified bacterial diseases
CPT/HCPCS: 36415; 70450; 71046; 80048; 80053; 80061; 80162; 81003; 81015; 83036; 83605; 83735; 84443; 84484; 85025; 85610; 85652; 85730; 86140; 87077; 87086; 87186; 93005; 93306; 99284; 99406; A9270-GY; C8929; G8978-GP-CL; G8979-GP-CI; G8987-GO-CJ; G8988-GO-CI; J0696; J1644

== ENCOUNTER 2018-01-06 16:57 | Inpatient (IN) | payer MEDICARE, MEDICAID ==
--- OUTSIDE RECORDS SUMMARY | 2018-01-06 17:07 | XMS REPORT ---
:1940 External Reference #:[id number] Author Organization [facility] [employer] Address [address] [facility] [address] Phone [phone] Care Team Providers Name Role Phone Angel Jiménez MD Care Team Information Senior Wealth Advisor Unavailable Angel Jiménez MD Primary Care Physician Unavailable Payers Type Date Identification Numbers Payment Provider Subscriber Commercial Effective: Policy Number: [id number] [employer] Medicare Erick Rockwell Jr 2017 Group Number: [id number] [address] Group Name: [id number] [place] [address] PayID: [id number] Policy Number: [id number] Medicaid Erick Rockwell Jr Group Name: 1 1 [address] PayID: [id number] [place] [address] Problems Date Description Provider Status Onset: 03/02/2013 Syncope and collapse Ashwini Hitchcock M.D. Onset: 03/02/2013 Paroxysmal supraventricular Ashwini Hitchcock tachycardia Beny Onset: 03/02/2013 Type 2 diabetes mellitus Ashwini Hitchcock M.D. Onset: 03/02/2013 Essential hypertension Ashwini Hitchcock M.D. Onset: 03/02/2013 Electrocardiogram abnormal Ashwini Hitchcock M.D. Onset: 03/02/2013 Hyperlipidemia Ashwini Hitchcock M.D. Onset: 03/02/2013 Right bundle branch Ashwini Ortiz M.D. Onset: 12/11/2017 Paroxysmal atrial fibrillation James Ingram MD Active Onset: 12/11/2017 Tobacco user James Ingram MD Active Onset: 12/11/2017 Adan hematuria James Ingram MD Active Onset: 12/11/2017 Benign prostatic hypertrophy with James Ingram MD Active outflow obstruction Onset: 12/08/2017 Other specified abnormal findings Jennyfer Mathur M.D. Active of blood chemistry Family History Date Family Member(s) Problem(s) Comments [...] With Alone Occupation Retired works with [employer] worker Cigarette Use currently smokes 1/2 Pack has [...] Exercises regularly lifts weights an rides bike Allergies, Adverse Reactions, Alerts Date Description Reaction [...] Capsules 500mg 30caps 1 tab by Teddy 2014 - mouth three Gabino, 05/29/ times a day Beny 2014 [place] 08/06/ Hx Tablets 5-325mg 60tabs 1 by mouth Teddy 2013 - every 4 hours Gabino 05/29/ as needed Beny 2014 Tramadol HCL 10/13/ Hx Tablets 50mg 40tabs 1 tablets by Teddy 2013 - mouth q6 Gabino 05/29/ hours as Beny 2014 needed pain Metformin 04/04/ Hx 500mg 60unit [...] Test Date Test Result H/L Range Note CBC Auto Diff 12/11/2017 White Blood Count 8.4 10^3/uL 3.5-10.8 Red Blood Count 4.14 10^6/uL 4.00-5.40 Hemoglobin 13.4 g/dL Low 14.0-18.0 Hematocrit 39 % Low 42-52 Mean Corpuscular Volume 95 fL High 80-94 Mean Corpuscular Hemoglobin 32 pg High 27-31 Mean Corpuscular HGB Conc 34 g/dL 31-36 Red Cell Distribution Width 14 % 10.5-15 Platelet Count 208 10^3/uL 150-450 Mean Platelet Volume 8.2 um3 7.4-10.4 Abs Neutrophils 4.9 10^3/uL 1.5-7.7 Abs Lymphocytes 2.5 10^3/uL 1.0-4.8 Abs Monocytes 0.7 10^3/uL 0-0.8 Abs Eosinophils 0.2 10^3/uL 0-0.6 Abs Basophils 0.1 10^3/uL 0-0.2 Abs Nucleated RBC 0 10^3/uL Granulocyte % 58.7 % 38-83 Lymphocyte % 30.1 % 25-47 Monocyte % 8.1 % High 0-7 Eosinophil % 2.4 % 0-6 Basophil % 0.7 % 0-2 Nucleated Red Blood Cells % 0 Surgical Pathology 11/21/2013 S RUN DATE: 11/29/ <SEE NOTE> 1 1 RUN DATE: 11/29/13 [facility] LAB LIVE PAGE 1 RUN TIME: [id number] [place], [place] [address] Specimen Inquiry Name: ERICK ROCKWELL : [address]: Teddy Lloyd MD Acct: [id number] Unit: [id number] AGE: 73 Location: OR Re11/21/13 SEX: M Status: REG SDC SPEC: [id number] SHEBA: 11/21/13- [facility] DR: Teddy Lloyd MD REQ: [id number] RECD: 11/21/13-1137 STATUS: SOUT _ ORDERED: Decal, LEVEL III [...] performed at Main Lab DEPARTMENT OF PATHOLOGY, [address] [place] [address] Saqib Agrawal M.D. Director [facility] # [id number] Procedures Date CPT Code Description Status 12/08/2017 01444 ECHO Transthorasic Realtime 2D W Doppler & Color Flow Completed Hosp 04/09/2016 52119 EKG Tracing & Interpretation Completed 09/18/2015 07141 EKG Tracing & Interpretation Completed 05/30/2014 86906 EKG Tracing & Interpretation Completed 11/21/2013 84658 Correction Hammertoe Completed 11/21/2013 75629 Correction Hammertoe Completed 10/13/2013 42258 Rad Exam; Foot Comp Completed 03/02/2013 76877 EKG Tracing & Interpretation Completed 02/22/2013 16435 EKG, Interpretation Only Completed 02/21/2013 93674 ECHO Transthorasic Realtime 2D W Doppler & Color Flow Completed Hosp 02/21/2013 87764 EKG, Interpretation Only Completed 12/16/2011 20077 Color Flow Doppler/Interp & Reprt Completed 12/16/2011 67488 Pulse Wave/Continuous-Interp.RPT Completed 12/16/2011 23115 ECHO Transthorasic Realtime 2D W Doppler & Color Flow Completed Hosp 12/16/2011 04236 EKG, Interpretation Only Completed 05/27/2010 30645 Rad Exam; Knee, Ap&L Completed 05/27/2010 05778 Xray Knee 3 Views Completed 04/04/2009 50328 EKG Tracing & Interpretation Completed 03/20/2009 15687 Treadmill Interp/Report Only Completed 03/20/2009 59092 Stress Test Supervsn W/Out I/R Completed 03/14/2009 40497 Holter Monitor Interpretation Completed 03/12/2009 27383 ECHO Transthorasic Realtime 2D W Doppler & Color Flow Completed Hosp 01/22/2007 63620 Color Doppler Completed 01/22/2007 69158 Color Doppler Completed 01/22/2007 01947 Color Doppler Completed 01/22/2007 11355 Pulse Doppler & Continuous Wave Completed 01/22/2007 23037 Pulse Doppler & Continuous Wave Completed 01/22/2007 35219 Echocardiogram Completed 01/22/2007 20756 Echocardiogram Completed 01/22/2007 06571 Echocardiogram Completed Encounters Type Date Location Provider CPT E/M Dx Office Visit 12/11/2017 3:00p [facility] [place] [address] R31.0 Cull Grader N40.1 I48.0 I47.1 I45.19 I10 F17.210 E78.4 Office Visit 12/08/2017 1:22p [facility],neetu Mathur, 36519 I47.1 Hospitalists M.DOliverio I10 I45.10 E78.5 R79.89 Office Visit 12/07/2017 1:20p [facility],pc Emiliana Hanson N.P. 84458 I47.1 Hospitalists I10 I45.10 Office Visit 05/19/2016 1:42p [facility] Amanda Gamble DNP, 18533 E11.59 AT [facility] RN, ADMIRALTY LAWYER-BC R23.8 I10 F17.210 Office Visit 04/09/2016 9:00a [facility] NATE Duenas 06475MLC I10 I45.19 Z72.0 Office Visit 09/18/2015 8:20a [facility] Qutaybeh S. Saleem, 78944 I10 M.D. R94.31 E78.4 I45.19 Z72.0 Z71.6 Office Visit 05/30/2014 8:40a [facility] Qutaybeh S. Lulaydah, 35531 250.00 M.D. 401.9 794.31 272.4 426.4 Office Visit 10/13/2013 1:30p [facility] Teddy Lloyd M.D. 87773 735.4 C.M.A. Office Visit 03/02/2013 11:20a [facility] Qutaybeh S. 25641 780.2 Beny Monge 427.0 250.00 401.9 794.31 272.4 426.4 Office Visit 02/22/2013 6:23p [facility], [place] Steve 08190 780.2 Hospitalists Beny Weber 427.0 250.00 401.9 Office Visit 02/21/2013 6:22p [facility], [place] Steve 14502 780.2 Hospitalists Beny Weber 427.0 250.00 401.9 Office Visit 12/17/2011 1:05p [facility] Lanette Mcmillan M.D. 63287 434.91 Services Of Cull Grader Office Visit 12/16/2011 9:03a [facility] Milton Mckenzie, 89818 435.8 Services Of Vee Swan Office Visit 05/27/2010 9:30a [facility] Tee Aleman M.D. 60111 716.96 C.M.A. Office Visit 04/04/2009 10:20a [facility] Qutaybeh SOliverio 46559 427.1 Beny Monge 785.1 427.0 Office Visit 11/27/2006 11:00a [facility] Mic Bazzi, 45916 721.3 Of Vee Swan Plan of Care 12/11/2017 - James Ingram, MDR31.0 Gross hematuriaComments:I recommend seeing Dr. Wyatt by middle of next week at the latest given the dark red hematuria. Stopthe pradaxa for now while you have the bleeding in your urine. A blood level (CBC) is being ordered to get later today.N40.1 Benign prostatic hyperplasia with lower urinary tract sympNew Medication:Tamsulosin HCL 0.4 mgComments:We are starting you on flomax. Follow-up with Dr. Pepper48.0 Paroxysmal atrial fibrillationComments:Your pradaxa is being held during your urinary bleeding.I47.1 Supraventricular tachycardiaComments:With recent troponin elevation 0.9. Follow-up with Dr. Monge for outpatient stress test. continue digoxin at recently elevated dose.I45.19 Other right bundle- branch [id number] Essential (primary) hypertensionComments:continue losartan 25mg though if develop symptoms of light headedness or dizziness I would hold.F17.210 Nicotine dependence, cigarettes, [id number] Other hyperlipidemiaComments:continue losartan
--- NOTE | 2018-01-06 17:32 | ED ---
Syncope/Near Syncope - HPI Summary HPI Summary: This patient is a 77 year old M presenting to [facility] from [facility] with a chief complaint of several szs since 1700. Pt endorses little to no memory of the episodes, weakness, and baseline ability to ambulate with a cane. half-way staff endorses several szs, including at least 1 grand mal sz visualized. Pt denies abd pain. Pt denies PMHx sz, endorses PMHx DM, HTN, Afib, dementia. - History Of Current Complaint Time Seen by Provider: 01/06/18 17:13 Hx Obtained From: Patient, Family/Automation Engineering Manager, EMS Onset/Duration: Sudden Onset, Lasting Minutes, Resolved Timing: Intermittent Episode Lasting - seconds to minutes Context: Witnessed, Loss Of Consciousness Associated Signs And Symptoms: Seizure - several, at least 1 grand mal, Weakness Frequency: Episodes x___ - many - Allergies/Home Medications Allergies/Adverse Reactions: Allergies Allergy/AdvReac Type Severity Reaction Status Date / Time blue dye Allergy Itching Verified 01/06/18 20:49 niacin Allergy Itching Verified 01/06/18 20:49 simvastatin Allergy Itching Verified 01/06/18 20:49 Home Medications: Home Medications Dabigatran CAP(NF) [Pradaxa CAP(NF)] 150 mg PO BID 01/06/18 [History Confirmed 01/06/18] Melatonin (NF) 3 mg PO BEDTIME 01/06/18 [History Confirmed 01/06/18] Zqoqr-1-Siip Ethyl Esters (NF) [Lovaza (NF)] 2 gm PO BID 01/06/18 [History Confirmed 01/06/18] PMH/Surg Hx/FS Hx/Imm Hx Endocrine/Hematology History: Reports: Hx Diabetes - DM II Cardiovascular History: Reports: Hx Atrial Fibrillation, Hx Hypercholesterolemia , Hx Hypertension Denies: Hx Congestive Heart Failure GI History: Denies: Hx Ileostomy History: Reports: Hx Benign Prostatic Hyperplasia Musculoskeletal History: Reports: Hx Arthritis Sensory History: Reports: Hx Cataracts, Hx Contacts or Glasses, Hx Vision Problem Denies: Hx Eye Injury, Hx Eye Prosthesis, Hx Glaucoma, Hx Legally Blind, Hx Macular Degeneration, Hx Deafness, Hx Hearing Aid, Hx Hearing Problem Opthamlomology History: Reports: Hx Cataracts, Hx Contacts or Glasses, Hx Vision Problem Denies: Hx Eye Injury, Hx Eye Prosthesis, Hx Glaucoma, Hx Legally Blind, Hx Macular Degeneration EENT History: Denies: Hx Deafness Neurological History: Reports: Hx Dementia, Other Neuro Impairments/Disorders - Hx of Parkinson's Denies: Hx Developmental Delay, Hx Headaches, Hx Migraine, Hx Nerve Disease, Hx Seizures, Hx Spinal Cord Injury Psychiatric History: Denies: Hx Autism - Surgical History Surgery Procedure, Year, and Place: 2003-Torn left knee meniscus repair Hx Anesthesia Reactions: No Infectious Disease History: Denies: Hx Clostridium Difficile, Hx Hepatitis, Hx Human Immunodeficiency Virus (HIV), Hx of Known/Suspected MRSA, Hx Shingles, Hx Tuberculosis, Hx Known/ Suspected VRE, Hx Known/Suspected VRSA, Traveled Outside the [place] in Last 30 Days - Family History Known Family History: Negative: Cardiac Disease - Social History Occupation: Retired Lives: At [facility] [employer] [facility] Alcohol Use: None Hx Substance Use: No Substance Use Type: Reports: None Hx Tobacco Use: Yes Smoking Status (MU): Light Every Day Tobacco Smoker Type: Cigarettes Amount Used/How Often: 1/2 PPD X 60 YEARS Review of Systems Negative: Abdominal Pain Positive: no symptoms reported Positive: Weakness, Syncope - several sz All Other Systems Reviewed And Are Negative: Yes Physical Exam - Summary Physical Exam Summary: General: well-appearing, no pain distress. General weakness. Skin: warm, color reflects adequate perfusion, dry Head: normal Eyes: EOMI, ELLA ENT: normal Neck: supple, non-tender Respiratory: CTA, breath sounds present Cardiovascular: RRR Abdomen: soft, non-tender Bowel: present Musculoskeletal: normal, strength/ROM intact Neurological: sensory/motor intact, A&O x3, slightly slow to respond, no FND. Psychological: affect/mood appropriate Triage Information Reviewed: Yes Vital Signs Reviewed: Yes Diagnostics - Laboratory Result Diagrams: 01/06/18 18:47 01/06/18 18:47 Lab Statement: Any lab studies that have been ordered have been reviewed, and results considered in the medical decision making process. - Radiology CXR Xray Interpretation: No Acute Changes Radiology Interpretation Completed By: ED Physician - CXR is negative. Pending official report. - CT Brain CT Interpretation: No Acute Changes CT Interpretation Completed By: Radiologist - 1. There is stable age-related diffuse cerebral volume loss and chronic microvascular ischemic disease. Stable right frontal lobe encephalomalacia suspicious for chronic infarct. 2. No acute intracranial pathology. Dr. Barragan has reviewed this report. - EKG 1741 Cardiac Rate: NL - 65 EKG Rhythm: Sinus Rhythm ST Segment: Normal Ectopy: None EKG Interpretation: Prolonged WA intervals at 288, RBBB Course/Dx Course Of Treatment: ADMIT HOSPITALIST. CRITICAL CARE TIME LESS THAN 30 MINUTES - Diagnoses Provider Diagnoses: Altered mental state, Seizure, UTI (urinary tract infection) - Physician Notifications Discussed Care of Patient With: Lorraine Kramer Time Discussed With Above Provider: 20:18 Instructed by Provider To: Other - accepts admission Discharge - Sign-Out/Discharge Documenting (check all that apply): Patient Departure - admission - Discharge Plan Condition: Fair Disposition: ADMITTED TO [facility] - Billing Disposition and Condition Condition: FAIR Disposition: Admitted to [facility] - Attestation Statements Document Initiated by Scribe: Yes Documenting Scribe: William Villafuerte Provider For Whom Scribe is Documenting (Include Credential): Dr. Gerardo Barragan MD Scribe Attestation: William Delgado scrlexyed for Dr. Gerardo Barragan MD on 01/06/18 at 2155. Scribe Documentation Reviewed: Yes Provider Attestation: The documentation as recorded by the William santos accurately reflects the service I personally performed and the decisions made by , Dr. Gerardo Barragan MD
[2018-01-06 18:57] LABS: ABS Basophils 0 10^3/ul (0-0.2); ABS Eosinophils 0.1 10^3/ul (0-0.6); ABS Lymphocytes 1.4 10^3/ul (1.0-4.8); ABS Monocytes 1.2 10^3/ul (0-0.8); ABS Neutrophils 14.3 10^3/ul (1.5-7.7); ABS Nucleated RBC 0 10^3/ul; Eosinophil % 0.7 % (0-6); Hematocrit 39 % (42-52); Hemoglobin 13.1 g/dl (14.0-18.0); Lymphocyte % 7.9 % (25-47); Mean Corpuscular HGB Conc 33 g/dl (31-36); Mean Corpuscular Hemoglobin 32 pg (27-31); Mean Corpuscular Volume 95 fL (80-94); Mean Platelet Volume 7.8 um3 (7.4-10.4); Nucleated Red Blood Cells % 0; Platelet Count 230 10^3/ul (150-450); Red Blood Count 4.13 10^6/ul (4.00-5.40); Red Cell Distribution Width 14 % (10.5-15); White Blood Count 17.1 10^3/ul (3.5-10.8)
[2018-01-06 19:06] LABS: INR 1.21 (0.77-1.02)
[2018-01-06 19:17] LABS: EGFR Non-African American 52.3 (>60)
--- NOTE | 2018-01-06 19:27 | RAD ---
EXAM: CT Head Without Intravenous Contrast CLINICAL HISTORY: 77 years old, male; Signs and symptoms; Syncope and collapse and other: Seizure; Additional info: Seizure, new onset TECHNIQUE: Axial computed tomography images of the head/brain without intravenous contrast. All CT scans at this facility use at least one of these dose optimization techniques: automated exposure control; mA and/or kV adjustment per patient size (includes targeted exams where dose is matched to clinical indication); or iterative reconstruction. COMPARISON: BRAIN WO CT BRAIN WO 12/28/2017 6:48 PM FINDINGS: Brain: There is stable age-related diffuse cerebral volume loss and chronic microvascular ischemic disease. Stable right frontal lobe encephalomalacia suspicious for chronic infarct. Stable cavum septum pellucida and draped No hemorrhage. Ventricles: Unremarkable. No ventriculomegaly. Bones/joints: Unremarkable. No acute fracture. Soft tissues: Unremarkable. Sinuses: Unremarkable as visualized. No acute sinusitis. Mastoid air cells: Unremarkable as visualized. No mastoid effusion. IMPRESSION: 1. There is stable age-related diffuse cerebral volume loss and chronic microvascular ischemic disease. Stable right frontal lobe encephalomalacia suspicious for chronic infarct. 2. No acute intracranial pathology.
[2018-01-06] MEDS ORDERED: NS 0.9% 1000 ML* 2,000 ML IV ONE (19:40)
[2018-01-06] MEDS ORDERED: cefTRIAXone(*) 1 GM in NS 0.9% 50 ML* 50 ML IVPB ONE (19:40)
[2018-01-06 20:18] LABS: Urine Appearance Cloudy; Urine Blood 3+ (Negative); Urine Color Amber; Urine Ketones Negative (Negative); Urine Protein 2+(100 mg/dL) (Negative); Urine Red Blood Cell 3+(>10/hpf) (Absent); Urine Specific Gravity 1.021 (1.010-1.030); Urine Urobilinogen Negative (Negative); Urine White Blood Cell 3+(>20/hpf) (Absent)
[2018-01-06] MEDS ORDERED: Piperacillin/Tazobac ADVAN(*) 3.375 GM in NS 0.9% 100 ML* 100 ML IVPB ONE (20:46)
[2018-01-06] MEDS ORDERED: Dextrose 50% Syringe 50 ML* 25 GM/50 ML SYRINGE IV PUSH PRN (20:46)
[2018-01-06] MEDS ORDERED: Acetaminophen TAB* 325 MG PO PRN (20:46)
[2018-01-06] MEDS ORDERED: Zosyn per Pharmacy* NOTE FOLLOW UP SCH (21:00)
[2018-01-06] MEDS ORDERED: NS 0.9% 1000 ML* 1,000 ML IV SCH (21:00)
--- NOTE | 2018-01-06 23:02 | RAD ---
EXAM: MR Head Without Intravenous Contrast CLINICAL HISTORY: 77 years old, male; Signs and symptoms; Other: Seizure; Patient HX: Pt had multiple witnessed seizures today; Additional info: ? Seizure TECHNIQUE: Magnetic resonance images of the head/brain without intravenous contrast in multiple planes. COMPARISON: BRAIN MRI BRAIN W/O 12/17/2011 11:10 AM FINDINGS: Brain: No evidence of restricted effusion to suggest an acute infarct. Ventricles and sulci are enlarged representing moderate blood room loss. Cavum septum pellucidum, normal variant. No mass, midline shift, or mass effect. No evidence of hemorrhage. Extensive periventricular, subcortical, and deep white matter small vessel ischemic changes. Encephalomalacia with gliosis in the right frontal lobe with hemosiderin deposits representing hemorrhagic old infarct. Bones/joints: Unremarkable. Sinuses: Mucous retention cyst in left maxillary sinus and moderate mucosal thickening of the ethmoidal air cells. Mild mucosal thickening of bilateral maxillary sinuses and frontal sinuses. No acute sinusitis. Mastoid air cells: Unremarkable as visualized. No mastoid effusion. Orbits: Unremarkable as visualized. IMPRESSION: No acute findings. 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 Moderate sinus disease.
--- NOTE | 2018-01-06 23:25 | HP ---
CC: Dr. Jiménez; Dr. Mac; [facility] * HISTORY AND PHYSICAL: DATE OF ADMISSION: 01/06/18 PRIMARY CARE PROVIDER: Dr. Jiménez ATTENDING PHYSICIAN WHILE IN THE HOSPITAL: Dr. Lorraine Kramer * (report dictated by Garrick Donohue NP) CONSULTING NEUROLOGIST: Dr. Mac CHIEF COMPLAINT: 1. Altered mental status. 2. Question of seizure. HISTORY OF PRESENT ILLNESS: Mr. Shoemaker is a 77-year-old male patient. He carries a history of diabetes, although not on any treatment currently. He also carries a history of AFib, CVA, history of DVT in the past, question of Parkinson's, although not on any medications, history of hypertension, hyperlipidemia, gout, dementia, BPH, insomnia. Recently, he was in the hospital for an NSTEMI, discharged actually yesterday. Trops maxed at 2.58 and he does have a history of seizures when in his 20s, but he has no had seizure in several years. Also, history of urinary retention. He is presenting to our ER today because he around 1545 this afternoon at [facility], he was going for physical therapy and rehabilitation purposes and he had an episode where he became unresponsive, his arms and legs were according to the staff. That lasted about 2 minutes and he was very confused afterwards, much more than his baseline. He also had an episode where after he was staring off twice and not responding to tactile stimulation or to nursing staff. They were concerned and they called 911 and sent him into the hospital. There was no recent reports of fevers or chills since he has been there. No vomiting or diarrhea. Nursing staff did report that his blood pressure was low in the 80s systolic and when he was here, he had some low blood pressure readings as well. He had a Clement recently placed on the last admission for urinary retention and he was to follow up with Urology for this. There was concern because of the seizure activity and we were asked to evaluate for admission. The patient denies having any recollection of any of these events today. He thought that he was still at the hospital today when this was happening. He was evaluated in the ED. The patient appeared to have improved and was returning to his baseline mental status. It was noted that he had white count of 17,000 and his urine appeared to be suspect and because of the current concerns for seizure, we were asked to evaluate for admission. PAST MEDICAL HISTORY: Significant for: 1. Diabetes, currently not on any medications for this. 2. Urinary retention. 3. AFib. 4. History of NSTEMI. 5. DVT in the upper extremity. 6. History of CVA. 7. Parkinson's. 8. Hypertension. 9. Hyperlipidemia. 10. Gout. 11. Dementia. 12. BPH. 13. Insomnia. 14. History of seizures in his 20s. PAST SURGICAL HISTORY: 1. He has had a left meniscus repair. 2. Tonsillectomy. ALLERGIES TO MEDICATIONS: Include SIMVASTATIN and NIACIN. FAMILY HISTORY: Mother and father, both of history of CAD. SOCIAL HISTORY: He was half a pack a day smoker. His last cigarette was on the 3rd of this month. He does not drink alcohol. Surrogate decision maker is his , . REVIEW OF SYSTEMS: There is no documented fever. He denies having any significant weight change. There was no double vision. He denied having any ear discharge. There was rhinorrhea. No sore throat. No thyroid enlargement. Denied having any chest pain. There was no orthopnea. There was no nocturnal dyspnea. There was no abdominal pain. No nausea, no vomiting. There was again no reports of dysuria, no frequency. No seizure. There was a question of seizures versus another syncopal episode at [facility]. Review of 14 systems completed, all others negative. PHYSICAL EXAMINATION GENERAL: At this time, Mr. Shoemaker is a 76-year-old male patient. He is chronically ill appearing. He is sitting in the ED stretcher. He does not appear to be in any acute distress. VITAL SIGNS: Blood pressure when he initially presented it was 116/55. He had an episode where he dipped down to 76/29, but then it is now up to 110/48. He did receive a fluid bolus. His pulse initially was 73, it is now 85, respirations were 18, his O2 sat 99%, and temperature was 97.5. HEENT: Head atraumatic. Eyes: EOMs are intact. Sclerae anicteric and not pale. Throat: Oral mucosa appears to be dry. No oropharyngeal erythema. NECK: Supple. LUNGS: Clear to auscultation. No wheezes, rales, or rhonchi. HEART: Sounds S1, S2. Regular rate and rhythm. No murmurs, rubs, or gallops. ABDOMEN: Soft, flat, nontender. Bowel sounds present. EXTREMITIES: Pulses were 2+ throughout and no peripheral edema. NEUROLOGICAL: He is awake, he is alert, he knows the month, he knows that he is in the hospital, he knows his name. His speech appeared to be clear. He had no facial drooping. He had weakness to his left lower extremity versus his right lower extremity, but he says this is his baseline from previous CVA. He is able to do [id number] bilaterally. He had no pronator drift noted. His bale opener were equal. His tongue was midline. He had no facial drooping. Cranial nerves II through XII were intact. He had no gross focal deficits with exception of that left lower extremity leg weakness, but again that is at his baseline according to the patient. SKIN: Grossly intact. DIAGNOSTIC STUDIES/LAB DATA: Revealing WBC of 17.1, RBC of 4.13, hemoglobin of 13.1, hematocrit of 39, and his platelet count of 230. INR was 1.21, PTT of 26.9. His sodium was 137, potassium was 4.2, chloride 107, bicarb 21, BUN 27, creatinine of 1.33, glucose 118, lactate 1.2, calcium 9.3, mag 2.3. Total bili 0.5, AST 20, ALT 13, alk phos 35, ammonia 34. CK 27. CK-MB of 1, troponin 0.02. CRP of 48. BNP of 42. TSH normal. Lipase normal. Urine showed 2+ proteins, 3+ leukocyte esterase, 3+ wbc's, 3+ rbc's. Toxicology was negative. Digoxin level was 1. He did have a chest x-ray obtained today, when I reviewed it, I did not appreciate any acute infiltrates or effusion. He had a brain CT obtained today as well. Impression: There is stable age related diffuse cerebral volume loss and chronic microvascular ischemic change, stable right frontal lobe encephalomalacia suspicious for chronic infarct. No acute intracranial pathology. He did have an EKG obtained today as well, which revealed normal sinus rhythm at a rate of 65. He had no ST elevations. He does appear to have a right bundle branch block. He did have a T wave inversion in V1 and V2, fattened in lead 3. We will review it to the previous EKG, it does appear to be similar in nature. No acute changes. He had an echo just done on the , which revealed EF of 50% to 55% with no significant valvular disease. Old medical records were reviewed. ASSESSMENT AND PLAN: Mr. Shoemaker is a 77-year-old male patient coming into our ER today with complaints of a question of a seizure episode. We are asked to evaluate for admission. He will be admitted under observation status for: 1. Altered mental status, concern for seizure. I did touch base with Neurology. Differential was broad here. He may have had a cardiac arrhythmia again, although this was not picked up the last time he was here when he was on telemetry. He certainly could have had a seizure. He is at risk. His seizure threshold may have been lowered. He was on nicotine, in addition to this, he was also on Ambien, which I have stopped. Also, it appears that he has a white count of 17,000 and his urine appears to be suspect, which certainly could have lowered the seizure threshold as well. I did touch base with the Neurology. I am not going to load him on anything unless he has another event while he is here in the hospital. We will add on a prolactin. His CK and lactic were stable. I will go ahead and get neuro checks on the patient, MRI of the brain, and EEG in the morning and I ordered carotid ultrasound. He is on aspirin and Plavix therapy already for cerebrovascular accident prevention and we will continue to monitor him at this point. 2. Urinary retention with urinary tract infection. Again, we will continue with his catheter. I will place him on Cefepime and we will wait for urine culture. 3. Diabetes. I have ordered a lispro sliding scale. I will check an A1c as well. 4. Atrial fibrillation. Continue Pradaxa and his digoxin. His level was stable. 5. Coronary artery disease. His troponin is normal now. I will cycle it 2 more times. It peaked at 2.5. I will go ahead and continue his aspirin. He is allergic to statins and he is not on a beta-rachel because he has significant bradycardia previously with the medications. We will continue to monitor. 6. History of DVT. Continue Pradaxa. 7. History of Parkinson's. Again, he is not currently on any medications. I will again wait for formal neuro evaluation. 8. Hypertension. He did have soft blood pressures here in the ED. This may have contributed to another syncopal episode and he may have had seizure like activity in relation to syncope. So, I have held his Cozaar for the time being and we will hydrate him. 9. Hyperlipidemia. I will check a lipid panel in the morning. 10. Gout. Continue meds as prescribed. 11. Dementia. He appears to be at his baseline. Continue with supportive care. 12. Benign prostatic hypertrophy. Continue Flomax and Proscar. He has a catheter. 13. History of insomnia. I have held his Ambien for the time being. 14. Recent non-ST segment elevation myocardial infarction. Again, continue with aspirin therapy only. 15. History of seizures in the past. Again, seizure precautions have been ordered. We are getting an EEG in the morning and I will continue to monitor. 16. Code status. Full code. 17. Fluids, electrolytes, and nutrition. He can have a consistent carb diet. 18. DVT prophylaxis. Again, he is on Pradaxa. TIME SPENT: On the admission was approximately 60 minutes, greater than half time was spent [id number] with the patient obtaining my history and physical, other half time was spent implementing the plan of care. I did discuss the plan of care with my attending, Dr. Kramer. GARRICK DONOHUE, DYLON [id number]/CPS #: [id number] VEDA
[2018-01-07] MEDS: Cefepime 1 GM in Dextrose(*) 1 GM/50 ML BAG IV SCH ×3 (00:13→21:49)
[2018-01-07] MEDS: CMCS Dabigatran CAP(NF) 150 MG CAP PO SCH ×3 (00:40→21:48)
--- NOTE | 2018-01-07 00:53 | RAD ---
EXAM: US Duplex Bilateral Extracranial Arteries CLINICAL HISTORY: 77 years old, male; Signs and symptoms; Altered mental status/memory loss; Confusion or disorientation; Additional info: HX CVA, TECHNIQUE: Real-time duplex ultrasound scan of the extracranial arteries integrating B-mode two-dimensional vascular structure, Doppler spectral analysis and color flow Doppler imaging. COMPARISON: BRAIN WO CT BRAIN WO 01/06/2018 7:06 PM FINDINGS: Right common carotid artery: Intimal thickening. Peak systolic velocity is 1 27 cm/s and end diastolic velocity is 15 cm/s. No occlusion on color flow and spectral Doppler imaging. Right internal carotid artery: Mild calcified atherosclerosis at the right carotid bulb extending into the right internal carotid artery. Peak systolic velocity is 1 22 cm/s and end-diastolic velocity is 34 cm/s. No occlusion or significant stenosis on color flow and spectral Doppler imaging. Right external carotid artery: Moderate atherosclerosis. Elevated peak systolic velocity is 237 cm/s No occlusion on color flow and spectral Doppler imaging. Right vertebral artery: Unremarkable. Peak systolic velocity is 67 cm/s Antegrade flow. Right subclavian artery: Unremarkable, peak systolic velocity is 109 cm/s. Right ICA/CCA ratio: Upper limit of the normal measuring 2.0 Left common carotid artery: Intimal wall thickening. Peak systolic velocity is 1 48 cm/s and end diastolic velocity 15 cm/s. No occlusion or significant stenosis on color flow and spectral Doppler imaging. Left internal carotid artery: Moderate atherosclerosis and soft plaque at the left carotid bulb extending into the left internal carotid artery with shadowing. Peak systolic velocity 109 cm/s and end-diastolic velocity is 27 cm/s. No occlusion on color flow and spectral Doppler imaging. Left external carotid artery: Moderate atherosclerosis. Elevated peak systolic velocity measuring 238 centimeter per second. No occlusion on color flow and spectral Doppler imaging. Left vertebral artery: Unremarkable. The systolic velocity is 59 cm/s Antegrade flow. Left subclavian artery: Unremarkable, peak systolic velocity is 111 cm/s. Left ICA/CCA ratio: Unremarkable measuring 0.99. Within normal limits. Lymph nodes: Unremarkable. No lymphadenopathy. CAROTID STENOSIS REFERENCE USING SRU CRITERIA: Mild - <50% stenosis. ICA PSV is less than 125 cm/second and plaque or intimal thickening is visible. Moderate - 50-69% stenosis. ICA PSV is 125 to 230 cm/second and plaque is visible. Severe - 70-94% stenosis. ICA PSV is more than 230 cm/second and visible plaque with lumen narrowing is seen. Near occlusion - 95-99% stenosis. ICA PSV is variable and significant plaque with luminal narrowing is seen. Occluded - 100% stenosis. No flow identified. IMPRESSION: Mild atherosclerotic plaque at the right carotid bulb extending into the origin of the right internal and external carotid artery. Moderate atherosclerotic and soft plaque with shadowing at the left carotid bulb extending into the left internal and external carotid arteries. Intimal thickening of bilateral common carotid arteries. Less than 50% stenosis of bilateral internal carotid arteries, right greater than left with upper limit of normal ICA/CCA ratio on the right measuring up to 2.0. Atherosclerosis of bilateral external carotid arteries with elevated velocities as described above. No occlusion. No hemodynamically significant stenosis.
[2018-01-07] MEDS: Omeprazole CAP* 20 MG PO SCH (06:09)
[2018-01-07 06:57] LABS: ABS Basophils 0 10^3/ul (0-0.2); ABS Eosinophils 0.1 10^3/ul (0-0.6); ABS Lymphocytes 2.4 10^3/ul (1.0-4.8); ABS Monocytes 0.9 10^3/ul (0-0.8); ABS Nucleated RBC 0 10^3/ul; Eosinophil % 0.8 % (0-6); Hematocrit 34 % (42-52); Hemoglobin 11.4 g/dl (14.0-18.0); Mean Corpuscular HGB Conc 34 g/dl (31-36); Mean Corpuscular Hemoglobin 32 pg (27-31); Mean Corpuscular Volume 94 fL (80-94); Mean Platelet Volume 8.9 um3 (7.4-10.4); Nucleated Red Blood Cells % 0; Platelet Count 223 10^3/ul (150-450); Red Cell Distribution Width 15 % (10.5-15); White Blood Count 13.5 10^3/ul (3.5-10.8)
[2018-01-07 07:10] LABS: INR 1.32 (0.77-1.02)
[2018-01-07 07:15] LABS: EGFR Non-African American 73.5 (>60)
--- NOTE | 2018-01-07 07:31 | RAD ---
INDICATION: Altered mental status and seizure COMPARISON: Most recent comparison chest x-ray is dated December 28, 2017 TECHNIQUE: Single AP portable view of the chest was obtained. FINDINGS: Image quality is compromised due to the relative inferiority of a portable chest x-ray. The heart and mediastinum exhibit normal size and contour. The lungs are grossly clear. There is no evidence of a large pleural effusion. Visualized bones are normal for the patient's age. IMPRESSION: No radiographic evidence for acute cardiopulmonary abnormality on this portable chest x-ray. R1
[2018-01-07] MEDS ORDERED: Fenofibrate(NF) 160 MG TAB PO SCH (08:30)
[2018-01-07] MEDS: Insulin LISPRO* 1 UNITS UNIT SUBCUT SCH ×3 (08:32→16:53)
[2018-01-07] MEDS: Aspirin EC TAB* 81 MG TAB.EC PO SCH (08:39)
[2018-01-07] MEDS: Finasteride TAB* 5 MG PO SCH (08:40)
[2018-01-07] MEDS: levETIRAcetam TAB* 500 MG PO SCH ×2 (08:40→21:48)
[2018-01-07] MEDS: Tamsulosin CAP* 0.4 MG PO SCH (08:40)
[2018-01-07] MEDS ORDERED: Digoxin TAB* 0.125 MG PO SCH (09:00)
--- NOTE | 2018-01-07 13:16 | PN ---
Subjective Date of Service: 01/07/18 Interval History: HOSPITALIST PROGRESS NOTE Patient seen and examined at bedside. Care reviewed and d/w Dylan Bruce RN. He feels better today. Denies VILLATORO, N/V, weakness. States he does not want to return to [facility]. Family History: Unchanged from Admission Social History: Unchanged from Admission Past Medical History: Unchanged from Admission Objective Active Medications: Acetaminophen (Tylenol Tab*) 650 mg PO Q4H PRN PRN Reason: FEVER/PAIN Aspirin (Aspirin Ec Tab*) 81 mg PO DAILY [facility] Last Admin: 01/07/18 08:39 Dose: 81 mg Dabigatran (Pradaxa Cap(Nf)) 150 mg PO BID [facility] Last Admin: 01/07/18 08:39 Dose: 150 mg Dextrose (D50w Syringe 50 Ml*) 12.5 gm IV PUSH .FOR FS < 60 - SS PRN PRN Reason: FS < 60 Digoxin (Lanoxin Tab*) 0.125 mg PO EVERY OTHER DAY [facility] Digoxin (Lanoxin Tab*) 0.25 mg PO EVERY OTHER DAY [facility] Last Admin: 01/07/18 08:39 Dose: 0.25 mg Fenofibrate (Tricor(Nf)) 160 mg PO DAILY WITH MEAL [facility]; Protocol Finasteride (Proscar Tab*) 5 mg PO DAILY [facility] Last Admin: 01/07/18 08:40 Dose: 5 mg Cefepime HCl (Maxipime 1 Gm In Dextrose Duplex (*)) 1 gm in 50 mls @ 100 mls/ hr IV Q12H [facility] Last Admin: 01/07/18 10:54 Dose: 100 mls/hr Insulin Human Lispro (Humalog*) 0 units SUBCUT AC CHRISSY; Protocol Last Admin: 01/07/18 08:32 Dose: Not Given Levetiracetam (Keppra Tab*) 500 mg PO BID [facility] Last Admin: 01/07/18 08:40 Dose: 500 mg Omeprazole (Prilosec Cap*) 20 mg PO 0600 [facility] Last Admin: 01/07/18 06:09 Dose: 20 mg Tamsulosin HCl (Flomax Cap*) 0.4 mg PO DAILY [facility] Last Admin: 01/07/18 08:40 Dose: 0.4 mg Vital Signs - 8 hr 01/07/18 01/07/18 01/07/18 07:32 08:00 08:39 Temperature 99.2 F Pulse Rate 88 87 Respiratory 16 16 Rate Blood Pressure 134/67 (mmHg) O2 Sat by Pulse 98 Oximetry Oxygen Devices in Use Now: None Appearance: Elderly gentleman lying in bed in NAD. Eyes: No Scleral Icterus Ears/Nose/Mouth/Throat: Mucous Membranes Moist Neck: Trachea Midline Respiratory: Symmetrical Chest Expansion and Respiratory Effort, Clear to Auscultation Cardiovascular: RRR - Normal S1 and S2 Neurological: Alert and Oriented x 3 Result Diagrams: 01/07/18 06:01 01/07/18 06:01 Assess/Plan/Problems-Billing Assessment: Mr Shoemaker is a 77yo M with PMH of recent admission for NSTEMI, pAFib, type 2 DM, HTN, CVA, urinary retention with chronic Clement, UE DVT, Parkinson's, HTN, HLD, gout, dementia, BPH, remote h/o seizures, who presented to ED after an episode of LOC while in rehab. - Patient Problems (1) Seizure Comment: - D/w Neurology - impression is his episode of LOC with shaking and urinary incontinence is suggestive of seizure. - Patient has a remote h/o seizures and has been off of medications for a long time. - MRI brain was negative for acute CVA. Carotid US negative for significant stenosis. - Will start Levetiracetam. (2) UTI (urinary tract infection) Comment: - Probably lowered his seizure threshold, precipitating yesterday's episode. - Continue Cefepime and follow culture. (3) Diabetes Comment: - Continue Lispro SS. - A1c is 5.2. (4) Afib Comment: - Currently in NSR. - Continue Digoxin and Pradaxa. (5) CAD (coronary artery disease) Comment: - Stable s/p recent NSTEMI. - Continue Aspirin. - Not on beta blockers due to bradycardia and allergic to statins. (6) HTN (hypertension) Comment: - Controlled off of Losartan for now. - Continue to monitor. (7) DVT prophylaxis Comment: - On Pradaxa (has pre-existing LUE DVT). (8) Full code status Status and Disposition: Inpatient. Will need SNF placement.
[2018-01-07] MEDS: FENOFIBRATE 160 MG PO SCH (13:37)
--- NOTE | 2018-01-07 16:24 | CONS ---
CC: Dr. Piyush Rodas; Dr. Angel Jiménez * CONSULTATION REPORT: DATE OF CONSULT: 01/07/18 REASON FOR CONSULT: Altered mental status, possible seizure. HISTORY OF PRESENT ILLNESS: Mr. Shoemaker is a 77-year-old gentleman with a complicated medical history with discharge yesterday after suffering a non-ST elevation MA. He was hospitalized from 12/28/17 to 01/05/18. His troponin peak was 2.43. He presented to the hospital with what sounded like a syncopal episode at home. Per the discharge summary, noted that he felt like he was having some diarrhea and incontinence and then had a sensation of passing out. He does have a history of seizures, which he states was diagnosed as a child and treated, but he has been on no medicine for 30 years. He also notes a history of Parkinson's disease, although he is on no medication. It should be noted that he has a history of dementia as well as a paroxysmal atrial fibrillation and a prior stroke. Yesterday, he was in good condition, was transferred to [facility] and at about 1:45 yesterday afternoon, he had an episode where he became unresponsive and his arms and legs were shaking per report, this lasted about 2 minutes. There was post- event confusion and he also notes that he lost bladder control. He denies any tongue biting or bowel incontinence. Apparently, he had several other episodes where he was staring off, not responding to voice or tactile stimulation. These lasted for several minutes and then resolved. He does not remember any of this. The first thing he remembers is being transferred to the hospital by ambulance. The patient has been doing well, otherwise. He denies any fevers, chills, nausea or vomiting, headaches, chest pain, shortness of breath, dysuria , although he does have a chronic indwelling Clement. Per the admission H and P, the nursing staff at [facility] reported some systolics in the 80s. In the ER, I spoke with Garrick Donohue. The patient was more appropriate and seemed to have returned to baseline, although he did think that he was at the hospital when this occurred; he had just been released the day before. He was put on antibiotics for a white count of 17,000. Garrick Donohue did report to me that he has a history of bradycardia in the past as well as a paroxysmal atrial fibrillation. The patient is unclear when he started having seizures, he is unclear of any risk factors, but states he has been seizure-free for years. PAST MEDICAL HISTORY: Includes the paroxysmal atrial fibrillation, prior stroke , non-ST elevation MA, recently hospitalized, dementia, BPH, hypertension, reported Parkinson's disease, seizures, hyperlipidemia, and gout as well as urinary retention for which he has an indwelling catheter. He also has a history of DVT in his upper extremity. PAST SURGICAL HISTORY: Includes knee surgery and tonsillectomy. MEDICATIONS: He is on: 1. Tylenol p.r.n. 2. Aspirin 81 mg q. day. 3. Cefepime 1 g q.12 hours. 4. Pradaxa 150 mg p.o. b.i.d. 5. Dextrose. 6. Lanoxin 0.25 mg every other day, Lanoxin 0.125 mg every other day. 7. TriCor 160 q. day. 8. Finasteride 5 mg q. day. 9. Insulin. 10. Prilosec 20 mg in the morning. 11. Tamsulosin 0.4 mg daily. ALLERGIES: Include SIMVASTATIN and NIACIN. FAMILY HISTORY: Coronary artery disease. No seizures that he is aware of. SOCIAL HISTORY: Continues to smoke, although he had a discussion about this. He is a smoker, has not really had the chance to start again, but wants to. No alcohol use. No illicit substance use. REVIEW OF SYSTEMS: Review of systems in 14-organ systems was difficult, but he notes symptoms above, but otherwise his review of systems was negative. PHYSICAL EXAM: Telemetry, he had several PVCs, no atrial fib reported. Temp of 98.5, pulse of 90, respiratory rate of 20, O2 sat of 100%, his blood pressure is 139/57 to 148/63 to 141/64. In general, he is a well-nourished, well-developed gentleman in no acute distress. He is pleasant, but slightly disheveled. He is lying in his hospital bed. He answers questions appropriately. HEENT: He is normocephalic, atraumatic. Sclerae are anicteric , although he does have pronounced rings around his cornea bilaterally. His mucous membranes are moist. Oropharynx is clear. Poor dentition. Neck is supple. No thyromegaly, no carotid bruits, no meningismus. Chest: Clear to auscultation bilaterally. Cardiovascular is regular rate and rhythm. No murmurs. Abdomen: Nontender, nondistended. Extremities: No clubbing, cyanosis , or edema. Skin is warm and dry. On neurologic exam, he is awake, alert. He is oriented to person, place, and time this morning. His speech is fluent. There is no dysarthria. Repetition is intact. Recall is somewhat impaired. His mood is dysthymic. Affect, mood congruent. Cranial Nerves II through XII: Pupils are equally round and reactive to light. Extraocular muscles are intact. No diplopia. No nystagmus. Visual keene are full to confrontation. His facial sensation is intact throughout. His face is symmetric. His hearing is intact bilaterally. Palate raises symmetrically. Tongue is midline. Sternocleidomastoid and trapezius 5/5. Motor Exam: He reports some weakness of the left lower leg; although on examination, I did not elicit that this morning, this may be due to some poor effort. He is 5/5 throughout. He does have some increased tone in the left upper extremity with some cogwheeling with distraction. There are no focal deficits and otherwise the tone is normal. He does have some tremor with [id number] and appeared to have a mild resting tremor of the left upper extremity. There was no flapping tremor noted. There is no dysmetria or dysdiadochokinesia. Sensation is grossly intact to light touch and pinprick in the upper and lower extremities. No asymmetry. DTRs were difficult to assess, equivocal. Babinski is absent at the ankles, trace at the patella, 1+ at the biceps and triceps bilaterally. Gait: He did not want to get up and walk this morning. He has a catheter in place. DIAGNOSTIC STUDIES/LAB DATA: His lab work: White count of 17.1 yesterday, 13.5 this morning; hemoglobin of 11.4; hematocrit 34; 18% lymphocytes; 10 absolute neutrophils; 0.9 absolute monocytes. INR of 1.32 yesterday, PTT of 26.9. His basic metabolic panel was normal. Calcium at 9.0. Triglycerides 70 , cholesterol 113, LDL of 68, HDL of 31.3. Prolactin of 5.7. Troponin 0.01 x2. Lactic acid 1.2. Urine showed 2+ protein, 3+ blood, 3+ leukocyte esterase , 3+ wbc's, 3+ rbc's, bacteria absent. U-Tox was negative. Serum alcohol negative. Studies include a carotid ultrasound, which showed no significant stenosis. His posterior circulation is unremarkable with antegrade flow bilaterally. Right internal carotid shows mild calcific atherosclerosis at the right carotid bulb extending to the right internal carotid artery. The left internal carotid artery shows moderate atherosclerosis and soft plaque at the left bulb extending to the left internal carotid artery with shadowing. Noted less than 50% bilateral internal carotid artery, right greater than left, narrowing. Elevated velocities bilaterally. He had a CT scan of the brain, films reviewed , shows atrophy, right frontal lobe encephalomalacia. No evidence of bleeding, no other acute issues. MRI of the brain, films reviewed, shows atrophy, no acute changes, old stroke in the right frontal lobe. ASSESSMENT AND PLAN: 1. Mr. Shoemaker is a 77-year-old gentleman with multiple medical issues including a history of dementia, reported history of Parkinson's disease, a history of seizures when he was young, no medicines for the last 30 years, who was admitted to the hospital on 12/28/17 with a non-ST elevation MA, was treated and did well during his hospital course and was discharged on 01/06/18 to [facility], subsequently readmitted yesterday after having several events at about 1:45 in the afternoon, in one of which he became unresponsive and was shaking. He did have bladder incontinence, no tongue biting, and was confused afterwards. While this episode could be cardiac in nature, could be related to an underlying arrhythmia, especially in light of his recent history. My biggest concern is that this was a seizure. He does have a known seizure history, although he has not had a seizure in many years. This does not preclude a seizure at this point. He has been under a tremendous amount of stress and this could certainly lower his seizure threshold. In light of an infection, in light of recent MA, certainly his seizure threshold could be lowered. I do think based on what we know that we should start him on medication. I would not want him to have another seizure given his recent heart condition. I am going to start him on Keppra 500 mg p.o. b.i.d., this should not have any cardiac side effects. We will need to watch his mood with the dementia over time. He is to have an EEG this morning, although that would not change my management at this point. He will be monitored on tele for any arrhythmia that might cause his symptoms; he does have a history of bradycardia in the past. 2. Parkinson's disease. There is some evidence of mild Parkinson's disease on examination. Interestingly, he has some rings around his cornea, which are unusual in nature, do not appear to be Colin-Kira rings, but with that said, I am going to check a copper and cerebral plasma given the tremor that he has. We will also check some labs for erosive causes of dementia. All of this we can follow up as an outpatient. I would not treat his Parkinson's disease at this point, especially in light of his recent events and his symptoms seem mild. 3. Old stroke. He is on Pradaxa for atrial fibrillation, would continue secondary stroke risk factor reduction including tight glucose control, tight blood pressure control. Smoking is a big issue. We had a long discussion about the fact that he must stop smoking as this is a big risk factor for stroke. He verbalized understanding. Unfortunately, he is allergic to STATINS and this is something that can be followed up as an outpatient. 4. Dementia. He is alert and oriented x3 today, seems to be at baseline. I am not going to treat him with any medications pending further evaluation as an outpatient. I am going to start him on the Keppra. If he does well today without any further events and his tele is negative, I think he can probably go home later today or tomorrow. I would like to see him back in my clinic in 6 to 8 weeks for followup and I will continue to manage his neurologic issues. Thank you for the opportunity to participate in his care. [id number]/[facility] #: [id number] VEDA
--- NOTE | 2018-01-08 02:40 | EEG ---
ELECTROENCEPHALOGRAPHY: DATE OF STUDY: - ROOM #449 DATE OF DICTATION: PATIENT OF: Garrick Donohue NP and Dr. Mac. CLINICAL PROBLEM: A 77-year-old man being evaluated for altered mental status and possible seizures. MEDICATIONS: Include, 1. Humalog. 2. Fenofibrate. 3. Aspirin. 4. Dabigatran. 5. Digoxin. 6. Finasteride. 7. Tamsulosin. 8. Keppra. 9. Cefepime. 10. Omeprazole. REPORT: With the patient awake, background cerebral activity consists of moderate amplitude posterior dominant 9 to 10 Hz rhythm. The patient is drowsy with some slowing to the theta range, but the patient never falls asleep. No epileptiform potentials, focal abnormalities, or major asymmetries background are noted. CLINICAL IMPRESSION: This awake and drowsy EEG is within normal limits. [id number]/[facility] #: [id number] MTDD
[2018-01-08] MEDS: Omeprazole CAP* 20 MG PO SCH (05:39)
[2018-01-08] MEDS: Insulin LISPRO* 1 UNITS UNIT SUBCUT SCH ×2 (07:20→11:58)
[2018-01-08 08:32] VITALS: BP 117/61
[2018-01-08] MEDS: levETIRAcetam TAB* 500 MG PO SCH (08:38)
[2018-01-08] MEDS: FENOFIBRATE 160 MG PO SCH (08:38)
[2018-01-08] MEDS: Finasteride TAB* 5 MG PO SCH (08:38)
[2018-01-08] MEDS: CMCS Dabigatran CAP(NF) 150 MG CAP PO SCH (08:38)
[2018-01-08] MEDS: Aspirin EC TAB* 81 MG TAB.EC PO SCH (08:38)
[2018-01-08] MEDS: Tamsulosin CAP* 0.4 MG PO SCH (08:56)
[2018-01-08] MEDS ORDERED: Digoxin TAB* 0.125 MG PO SCH (09:00)
[2018-01-08] MEDS: Cefepime 1 GM in Dextrose(*) 1 GM/50 ML BAG IV SCH (10:02)
--- NOTE | 2018-01-08 12:28 | PN ---
Progress Note - Progress Note Date of Service: 01/08/18 Note: Time spent on discharge 45 minutes, including exam of patient, discussion with patient, nurse, CM, SO, review of EMR and preparation of discharge documents.
--- NOTE | 2018-01-08 13:45 | TRS ---
CC: Dr. Jiménez TRANSFER SUMMARY: DATE OF TRANSFER: 01/08/18 HISTORY OF PRESENT ILLNESS: This 77-year-old male was transferred from [facility] after a witnessed seizure. This was reported to have lasted about 2 minutes. There was some postevent confusion and urinary incontinence. The patient has a history of having a seizure disorder as a child, but not been on any seizure medications for at least 30 years. He does have evidence of an old frontal lobe stroke on MRI. His EEG here was within normal limits. He was discharged here on 01/05/18 following a non-ST elevation [place]. He was weak and needed rehabilitation therapy. He is returned to [facility] to complete his rehabilitation therapy. He was started on levetiracetam here. So far, he has tolerated it well but his feels it makes him "out of it". If there seems to be significant side effects a lower dose of 250 mg bid could be considered or a different antiseizure medication could be considered. FINAL DIAGNOSES: 1. Seizure disorder. 2. Coronary artery disease with recent myocardial infarction. 3. Dementia. 4. History of atrial fibrillation. 5. History of deep venous thrombosis in upper extremity. 6. History of CVA. 7. Parkinson's. 8. Hypertension. 9. Hyperlipidemia. 10. Gout. 11. Benign prostatic hypertrophy. TRANSFER MEDICATIONS: 1. Levetiracetam 500 mg b.i.d. 2. Fenofibrate 160 mg daily. 3. Losartan 25 mg daily. 4. Digoxin 0.125 mg every other day alternating with 0.25 every other day. 5. Zolpidem 5 mg h.s. p.r.n. 6. Finasteride 5 mg daily. 7. Tamsulosin 0.4 mg daily. 8. Acetaminophen 650 mg every 6 hours p.r.n. 9. Aspirin 81 mg daily. 10. Nicotine patch 21 mg daily, taper to 17 mg daily on 01/09/18. 11. Omeprazole 20 mg daily. 12. Dabigatran 150 mg b.i.d. 13. Lovaza 2 g b.i.d. 14. Melatonin 3 mg h.s. CONDITION ON DISCHARGE: Stable. DISPOSITION ON DISCHARGE: Transfer to [facility]. [id number]/[facility] #: [id number] [facility]
== END 2018-01-08 14:51 | DRG 100 ==
LOC: ED 16:57 → MEDTELE 20:43 → OBSVTOIN 01-07 13:46
PROVIDERS: ADMIT Pediatrics; ATTEND Internal Medicine
PROC: 4A00X4Z Measurement of Central Nervous Electrical Activity, External Approach (ICD-10-PCS; principal; 2018-01-07)
DX: G40.909 Epilepsy, unspecified, not intractable, without status epilepticus (principal); I21.4 Non-ST elevation (NSTEMI) myocardial infarction; N39.0 Urinary tract infection, site not specified; I10 Essential (primary) hypertension; N40.0 Benign prostatic hyperplasia without lower urinary tract symptoms; M19.90 Unspecified osteoarthritis, unspecified site; G20 Parkinson's disease; F02.80 Dementia in other diseases classified elsewhere, unspecified severity, without behavioral disturbance, psychotic disturbance, mood disturbance, and anxiety; F17.210 Nicotine dependence, cigarettes, uncomplicated; M10.9 Gout, unspecified; I48.0 Paroxysmal atrial fibrillation; R32 Unspecified urinary incontinence; G47.00 Insomnia, unspecified; R33.9 Retention of urine, unspecified; E78.5 Hyperlipidemia, unspecified; I45.10 Unspecified right bundle-branch block; E11.36 Type 2 diabetes mellitus with diabetic cataract; I25.10 Atherosclerotic heart disease of native coronary artery without angina pectoris; I25.2 Old myocardial infarction; Z86.73 Personal history of transient ischemic attack (TIA), and cerebral infarction without residual deficits; Z88.8 Allergy status to other drugs, medicaments and biological substances; Z82.49 Family history of ischemic heart disease and other diseases of the circulatory system; Z88.1 Allergy status to other antibiotic agents; Z91.041 Radiographic dye allergy status; Z86.718 Personal history of other venous thrombosis and embolism; Z79.82 Long term (current) use of aspirin
CPT/HCPCS: 36415; 70450; 70551; 71045; 80048; 80053; 80061; 80162; 80307; 80320; 80329; 81003; 81015; 82140; 82390; 82525; 82550; 82553; 82607; 82746; 83036; 83605; 83690; 83735; 83880; 84146; 84443; 84484; 85025; 85610; 85730; 86140; 87040; 87077; 87086; 87186; 93005; 93880; 95819; 99285; 99406; A9270-GY; G0378; G0480; J0692; J0696